=== PATIENT | male | born 1970 | race Caucasian/White ===

== ENCOUNTER → 2019-01-31 | Outpatient (CLI) | payer OTHER ==
[2019-01-31 11:49] LABS: HCT 45.4 % (39.0-53.0); HGB 15.6 gm/dL (13.0-17.5); MCH 30.7 pg (25.0-35.0); MCHC 34.3 g/dL (31.0-37.0); MCV 89.3 fL (80.0-100.0); Mean Platelet Volume 6.7; Platelet Count 287 k/uL (150-450); RBC 5.09 m/uL (4.30-5.90); RDW 12.8 % (11.5-15.5); WBC 5.5 k/uL (3.8-10.6)
== END | disposition home or self-care (01) ==
LOC: LABWHC1 10:08
PROVIDERS: ATTEND Surgery
DX: Z01.812 Encounter for preprocedural laboratory examination (principal)
CPT/HCPCS: 36415; 85027

== ENCOUNTER 2019-02-03 09:53 | Day surgery (SDC) | payer OTHER ==
[2019-01-27 16:08] VITALS: BMI 29.5
[~2019-02-03 09:53] MED LIST: CLINDAMYCIN 900 MG in DEXTROSE 5% IN WATER 50 ML IVPB ONE; DEXAMETHASONE SOD PHOSPHATE 10 MG/ML 1 ML VIAL IV ONE; HEPARIN SODIUM,PORCINE 5,000 UNIT/ML 1 ML VIAL SQ ONE; HYDROmorphone 0.5 MG/0.5 ML SYRINGE IVP PRN; LACTATED RINGERS 1,000 ML IV SCH; LEVOFLOXACIN 500MG-D5W PMX 500 MG in DEXTROSE/WATER 1 100ML.BAG IVPB ONE; MIDAZOLAM 2 MG/2 ML VIAL IV PRN; ONDANSETRON 4 MG/2 ML VIAL IVP ONE; SCOPOLAMINE 1.5MG/72HR PATCH TRANSDERM ONE
[2019-02-03] MEDS ORDERED: LIDOCAINE 1% 20 ML VIAL (10MG/ML) FOR IV START INTRADERMA ONE ×2 (10:20)
--- NOTE | 2019-02-03 10:24 | P.GSHP ---
History of Present Illness H&P Date: 02/03/19 Chief Complaint: Right inguinal hernia This a 48-year-old male developed a right angle hernia. Patient rents today for laparoscopic robotic system repair. Past Medical History Past Medical History: GERD/Reflux, Hypertension, Osteoarthritis (OA) Additional Past Medical History / Comment(s): Restless Leg Syndrome. Hx ulcer few yrs ago. History of Any Multi-Drug Resistant Organisms: None Reported Past Surgical History: Cholecystectomy, Orthopedic Surgery Additional Past Surgical History / Comment(s): Bilateral knee surgery, wrist s urgery. Past Anesthesia/Blood Transfusion Reactions: No Reported Reaction Additional Past Anesthesia/Blood Transfusion Reaction / Comment(s): "Freaked out when woke up after gallbladder surgery, was trying to get out of bed." Past Psychological History: No Psychological Hx Reported Smoking Status: Former smoker Past Alcohol Use History: None Reported Additional Past Alcohol Use History / Comment(s): Quit smoking 10 yrs ago, smoked for 20 yrs, 1 PPD or less. Past Drug Use History: None Reported - Past Family History Mother Family Medical History: Hypertension Medications and Allergies Home Medications Medication Instructions Recorded Confirmed Type Amino Acids 700 mg PO DAILY 04/13/16 02/03/19 History Lisinopril [Zestril] 20 mg PO QAM 04/13/16 02/03/19 History Multivitamin [Men's Multi-Vitamin] 1 tab PO DAILY 04/13/16 02/03/19 History Ranitidine HCl [Zantac] 150 mg PO QAM 04/13/16 02/03/19 History Clear Muscle 1 dose PO DAILY 01/27/19 02/03/19 History Allergies Allergy/AdvReac Type Severity Reaction Status Date / Time Penicillins Allergy rash,swelli Verified 02/03/19 10:17 ng Surgical - Exam Vital Signs Temp Pulse Resp BP Pulse Ox 97.1 F L 74 18 118/71 100 02/03/19 10:18 02/03/19 10:18 02/03/19 10:18 02/03/19 10:18 02/03/19 10:18 - General well developed, well nourished, no distress - Eyes PERRL - ENT normal pinna - Neck no masses - Respiratory normal expansion - Cardiovascular Rhythm: regular - Abdomen Reducible right inguinal hernia Abdomen: soft, non tender Assessment and Plan Assessment: Right angle hernia. We'll perform laparoscopic robotic-assisted repair.
[2019-02-03] MEDS ORDERED: fentaNYL (PF) 50 MCG/ML 2 ML AMP IVP ONE (10:30)
[2019-02-03] MEDS ORDERED: SUCCINYLCHOLINE CHLORIDE 100 MG/5 ML SYR IV ONE (10:42)
[2019-02-03] MEDS ORDERED: diphenhydrAMINE 50 MG/ML 1 ML VIAL ONE (10:42)
[2019-02-03] MEDS ORDERED: LIDOCAINE 1% INJ 10MG/ML (20 ML MDV) ONE (10:42)
[2019-02-03] MEDS ORDERED: PROPOFOL 10 MG/ML 20 ML VIAL IV ONE (10:42)
[2019-02-03] MEDS ORDERED: fentaNYL (PF) 50 MCG/ML 2 ML AMP ONE (10:42)
[2019-02-03] MEDS ORDERED: KETOROLAC 30 MG/ML 1 ML VIAL ONE (10:42)
[2019-02-03] MEDS ORDERED: ROPIVACAINE 5 MG/ML 30 ML VIAL ONE (10:42)
[2019-02-03] MEDS ORDERED: MIDAZOLAM 2 MG/2 ML VIAL ONE (10:42)
[2019-02-03] MEDS ORDERED: NEOSTIGMINE 1 MG/ML 10 ML VIAL ONE (10:42)
[2019-02-03] MEDS ORDERED: GLYCOPYRROLATE 0.2 MG/ML 2 ML VIAL ONE (10:42)
[2019-02-03] MEDS ORDERED: HYDROmorphone (PF) 1 MG/ML ONE (10:42)
[2019-02-03] MEDS ORDERED: ROCURONIUM BROMIDE 10 MG/ML 10 ML VIAL IV ONE (10:42)
[2019-02-03] MEDS ORDERED: BUPIVACAIN-EPI 0.25%-1:200,000 30 ML VIAL SQ ONE (11:21)
--- NOTE | 2019-02-03 12:03 | P.OP ---
Date of Procedure: 02/03/19 Preoperative Diagnosis: Right inguinal hernia Postoperative Diagnosis: Bilateral inguinal hernia Bilateral cord lipoma Procedure(s) Performed: Laparoscopic robotic Repair of bilateral inguinal hernia Excision of bilateral cord lipoma Anesthesia: DAYNA Surgeon: Jose Luis Cho Estimated Blood Loss (ml): 5 Pathology: other (Bilateral cord lipoma) Condition: stable Disposition: PACU Description of Procedure: The patient's placed on the operating table in the supine position. The patient received general anesthesia. The patient's abdomen was prepped and draped in usual sterile fashion. The skin was anesthetized 1% local Xylocaine at the incision sites. Using an 11 blade a skin incision was made at the umbilicus. The fascia was grasped with a Blanca and then the peritoneal cavity was entered with the Veress needle. Position of the Veress needle was confirmed with a positive drop test. After adequate insufflation a 5 mm trocar was placed into the peritoneal cavity. The Laparoscope was placed the peritoneal cavity. And a robotic 8 mm trocar was placed in the right lateral position and then another 8 mm robotic trochars placed in the left lateral position. The original 5 mm trocar was exchanged for a 12 mm trocar. The patient was placed in reverse Trendelenburg and then the patient was docked to the robot. Next the peritoneum over top of the right inguinal hernia was incised and then using blunt and sharp dissection and electrocautery the hernia sac was dissected free from the floor of the inguinal canal. A cord lipoma was dissected free from the hernia and sent to pathology The hernia sac was completely reduced into the peritoneal cavity. And then using the Pro project reservoir engineer mesh the hernia was repaired. The peritoneum was then sutured with 20V lock suture. Next the peritoneum over top of the left inguinal hernia was incised and then using blunt and sharp dissection and electrocautery the hernia sac was dissected free from the floor of the inguinal canal. A cord lipoma was dissected free and sent to pathology The hernia sac was completely reduced into the peritoneal cavity. And then using the Pro project reservoir engineer mesh the hernia was repaired. The peritoneum was then sutured with 20V lock suture. The patient was then undocked the robot. The needle was withdrawn from the peritoneal cavity. The umbilical trocar site was closed with 0 Ethibond suture. The skin was closed interrupted 3-0 Monocryl suture. Dermabond dressing was applied. Patient was sent to recovery in stable condition.
[2019-02-03 12:11] VITALS: TEMP 97.8
[2019-02-03 12:12] VITALS: RESP 16
[2019-02-03] MEDS ORDERED: HYDROcodone/APAP 5-325MG 1 EACH TAB PO ONE (12:52)
--- NOTE | 2019-02-03 13:03 | P.ANPRN ---
Procedure Note - Anesthesia - Nerve Block Performed Right Transversus Abdominis Single Time Out Performed: Yes Date of Procedure: 02/03/19 Procedure Start Time: 10:28 Location of Patient Procedure: PreOp Indication: Acute Post-Operative Pain, Requested by Surgeon Specifically requested for management of pain by DrDarleen: Jose Luis Cho Sedation Type: Sedate with meaningful contact maintained Preparation: Sterile Prep Position: Supine Catheter: None Needle Types: Pajunk Needle Gauge: 21 Ultrasound used to observe medication spread: Yes Injectate: Other (see comment) (Ropivacaine 0.25%/lidocaine 0.5% 30 mL) Adjunct: Epinephrine (see comment for dilution ratio) (1:200,000) Blood Aspirated: No Pain Paresthesia on Injection Noted: No Resistance on Injection: Normal Image Stored and Saved: Yes
[2019-02-03 13:14] VITALS: BP 100/57; PULSE 75
== END 2019-02-03 14:04 | disposition home or self-care (01) ==
LOC: OR 09:53
PROVIDERS: ATTEND Surgery
DX: K40.20 Bilateral inguinal hernia, without obstruction or gangrene, not specified as recurrent (principal); D17.6 Benign lipomatous neoplasm of spermatic cord; I10 Essential (primary) hypertension; K21.9 Gastro-esophageal reflux disease without esophagitis; M19.90 Unspecified osteoarthritis, unspecified site; G25.81 Restless legs syndrome; Z87.891 Personal history of nicotine dependence; Z79.899 Other long term (current) drug therapy; Z88.0 Allergy status to penicillin; Z90.49 Acquired absence of other specified parts of digestive tract; Z98.890 Other specified postprocedural states; Z82.49 Family history of ischemic heart disease and other diseases of the circulatory system
CPT/HCPCS: 49650; 64486; 88302; C1781; J2250; J1200; J1644; J1100; J2710; J2405; J2001; J3010; J1885; J1170; J2795; J0330; J2704

== ENCOUNTER → 2020-06-30 | Outpatient (CLI) | payer OTHER ==
[2020-06-30 11:33] LABS: Basophils % (A) 1 %; Eosinophils # (A) 0.2 k/uL (0-0.7); Eosinophils % (A) 3 %; HCT 43.9 % (39.0-53.0); HGB 14.4 gm/dL (13.0-17.5); Lymphocytes # (A) 1.7 k/uL (1.0-4.8); Lymphocytes % (A) 27 %; MCH 29.2 pg (25.0-35.0); MCHC 32.9 g/dL (31.0-37.0); MCV 88.9 fL (80.0-100.0); Monocytes # (A) 0.3 k/uL (0-1.0); Monocytes % (A) 4 %; Neutrophils # (A) 3.9 k/uL (1.3-7.7); Neutrophils % (A) 62 %; Platelet Count 265 k/uL (150-450); RBC 4.94 m/uL (4.30-5.90); RDW 13.6 % (11.5-15.5); WBC 6.3 k/uL (3.8-10.6)
[2020-06-30 11:54] LABS: Potassium 4.3 mmol/L (3.5-5.1)
== END | disposition home or self-care (01) ==
LOC: LABPAT 10:49
PROVIDERS: ATTEND Orthopaedic Surgery
DX: Z01.818 Encounter for other preprocedural examination (principal); M70.21 Olecranon bursitis, right elbow
CPT/HCPCS: 36415; 80051; 85025

== ENCOUNTER 2020-07-01 10:46 | Inpatient (IN) | payer OTHER ==
--- NOTE | 2020-06-30 12:40 | HP ---
HISTORY AND PHYSICAL CHIEF COMPLAINT: Right elbow drainage and swelling. HISTORY OF PRESENT ILLNESS: The patient is a 49-year-old, right-hand dominant, self-employed contractor who presents with a 6-week history of a right elbow swelling/pain/and drainage. He has had previous aspiration in addition recently was on oral antibiotics with persistence of his symptoms. He denies fevers or chills. PAST MEDICAL HISTORY: Significant for anxiety, hypertension, and restless legs syndrome. PAST SURGICAL HISTORY: Negative. CURRENT MEDICATIONS: 1. Clindamycin. 2. Ambien. 3. Lisinopril. 4. Suboxone. FAMILY HISTORY: Negative. SOCIAL HISTORY: Significant for 1 pack per day tobacco use. REVIEW OF SYSTEMS: Sixteen-point review of systems is otherwise reviewed and is noncontributory. PHYSICAL EXAMINATION: On examination, the patient is approximately 6 feet 1 inch, 225 pounds of mesomorphic habitus. HEENT exam is nonfocal. Neck is supple. He is nontender about the right shoulder. On examination right elbow, active motion - 12 degrees full extension to 130 degrees of flexion. He does have significant posterior swelling over the olecranon with erythema and serous drainage. He is tender over this region as well. His distal neurovascular exam appears intact in the right upper extremity. Previous x-rays of the right elbow obtained in the office show a posterior soft tissue swelling. IMPRESSION: Right elbow olecranon bursitis-infected. RECOMMENDATIONS: I talked to the patient at length regarding his condition and treatment options. At this point, I recommend proceeding with incision and drainage with irrigation and debridement of his infected right olecranon bursitis. Potentially, we will keep the patient in the hospital until cultures grow out. We will also consider consulting Infectious Disease. Risks and benefits were discussed at length in layman's terms. MMODL / IJN: [id number] /
[2020-06-30 14:24] VITALS: BMI 30.3
[2020-07-01] MEDS ORDERED: LIDOCAINE 1% (10MG/ML) FOR IV START INTRADERMA ONE (11:29)
[2020-07-01] MEDS ORDERED: LACTATED RINGERS 1,000 ML IV ONE (11:29)
[2020-07-01] MEDS ORDERED: ONDANSETRON 4 MG/2 ML VIAL IVP ONE (11:32)
[2020-07-01] MEDS ORDERED: DEXAMETHASONE SOD PHOSPHATE 4 MG/ML 1 ML VIAL IVP ONE (11:33)
[2020-07-01] MEDS ORDERED: SCOPOLAMINE 1.5MG/72HR PATCH TRANSDERM ONE (11:33)
[2020-07-01] MEDS ORDERED: LIDOCAINE 1% INJ 10MG/ML (20 ML MDV) ONE (12:27)
[2020-07-01] MEDS ORDERED: MIDAZOLAM 2 MG/2 ML VIAL ONE (12:27)
[2020-07-01] MEDS ORDERED: fentaNYL (PF) 50 MCG/ML 2 ML AMP ONE (12:27)
[2020-07-01] MEDS ORDERED: ceFAZolin 3,000 MG in SODIUM CHLORIDE 0.9% IRRIGATIO 3,000 ML IRRIGATION ONE (12:27)
[2020-07-01] MEDS ORDERED: HYDROmorphone (PF) 1 MG/ML ONE (12:27)
[2020-07-01] MEDS ORDERED: PROPOFOL 10 MG/ML 20 ML VIAL IV ONE (12:27)
--- NOTE | 2020-07-01 13:12 | P.OP ---
Date of Procedure: 07/01/20 Preoperative Diagnosis: Right septic olecranon bursitis Postoperative Diagnosis: Same Procedure(s) Performed: Incision and drainage/irrigation and debridement right septic olecranon bursitis Anesthesia: DAYNA Surgeon: Lester Beltran Delimber Operator #1: Addi Albarran Estimated Blood Loss (ml): 10 Pathology: other (Cultures) Condition: stable Disposition: PACU Indications for Procedure: The patient's a 49-year-old male who presents with a several week history of persistent right elbow swelling/drainage/redness. He was tried on a course of oral antibiotics with persistence of his symptoms. A discussion of the risks and benefits of operative intervention was made with patient. He opted to proceed. Risks of this procedure to include persistence of infection and need for subsequent procedures was discussed. Informed consent was obtained. Operative Findings: As below Description of Procedure: The patient was brought to the operating room, and after induction of general anesthesia the right upper extremity was prepped and draped in normal fashion. The tourniquet was inflated to 250 mm marker. A 5 cm incision was then made centered over the olecranon process. Skin was incised sharply. Subcu changed tissues were divided sharply. A significant amount of serous fluid was expressed. Deep cultures were obtained. There was significant bursal thickening that was debrided sharply with a scalpel down to the level of the bone/olecranon. The wound edges were also sharply debrided with a scalpel. The wound was copiously irrigated with 3 L of saline. The skin was reapproximated loosely with 2-0 interrupted nylon sutures over a Pepito drain. A sterile dressing was applied. The tourniquet was deflated less than 30 minutes total tourniquet time. The patient was awoken from general anesthesia and transferred to recovery room in good condition. Blood loss estimated at 10 mL. No complications were incurred. Sponge and needle counts were correct at the end of the case.
[2020-07-01] MEDS ORDERED: ACETAMINOPHEN TAB 325 MG TAB PO PRN (13:15)
[2020-07-01] MEDS: HYDROmorphone 0.5 MG/0.5 ML SYRINGE IVP PRN ×6 (13:22→20:42)
[2020-07-01] MEDS ORDERED: CLINDAMYCIN 600 MG in DEXTROSE 5% IN WATER 50 ML IVPB SCH ×2 (20:00)
[2020-07-01] MEDS: ZOLPIDEM 5 MG TAB PO PRN (20:42)
[2020-07-01] MEDS ORDERED: VANCOMYCIN IV PER PHARMACY 1 EACH MISC MISCELLANE PRN (22:27)
--- NOTE | 2020-07-01 23:20 | CONS ---
CONSULTATION DATE OF SERVICE: 07/01/2020 REASON FOR CONSULTATION: Right elbow septic bursitis. HISTORY OF PRESENT ILLNESS: The patient is a 49-year-old male electively admitted to the hospital for right elbow septic olecranon bursitis. Apparently the patient started having symptoms more than a month ago. The patient said he was in [place] [facility] when he started having some irritation and pain to the right elbow area. Subsequently he noticed increasing swelling and redness and was evaluated multiple times in the outpatient setting. He has been treated with multiple courses of antibiotics, including Levaquin, doxycycline and clindamycin. This patient does have a history of PENICILLIN ALLERGY. The patient was evaluated by Dr. Beltran yesterday with a diagnosis of septic olecranon bursitis and has been admitted to hospital for bursectomy, which was completed this afternoon. The patient was started on clindamycin. Infectious Disease was consulted for management of antibiotic therapy. The patient has been complaining of pain to the elbow area, to be more of a dull aching to sharp intensity 7 to 8 out of 10, and no radiation. The patient did have some swelling and redness and minimal drainage; not foul-smelling, though. He did have a fever on presentation to the hospital. The patient has been afebrile. No blood work has been done. Started on clindamycin. REVIEW OF SYSTEMS: Positive points have been mentioned in HPI. Rest of systems are negative. PAST MEDICAL HISTORY: Anxiety, hypertension, restless leg syndrome. PAST SURGICAL HISTORY: No major surgery. SOCIAL HISTORY: Positive for smoking about a pack a day. Denies drinking or drug use. FAMILY HISTORY: No pertinent findings noticed. ALLERGIES: LEVAQUIN, DOXYCYCLINE, PENICILLIN, mostly with a rash. MEDICATIONS: The patient is currently on Tylenol, [place], clindamycin, Dilaudid and Ambien. PHYSICAL EXAMINATION: Blood pressure 127/74 with a pulse of 81, temperature 97.7. He is 94% on room air. General description is a middle-aged male lying in bed in no distress. No tachypnea or accessory muscle of respiration use. HEENT: Examination shows no pallor or scleral icterus. Oral mucous membrane is dry. No pharyngeal erythema or thrush. NECK: Trachea is central. No thyromegaly. LUNGS: Unlabored breathing. Clear to auscultation anteriorly. No wheeze or crackle. HEART: S1, S2. Regular rate and rhythm. No added sound. ABDOMEN: Soft. No tenderness. No guarding or rigidity. EXTREMITIES: No edema of the feet. SKIN EXAMINATION: No rash or mass palpable. Examination of the right elbow: It is currently dressed. No drainage on the dressing. NEUROLOGIC: The patient is awake, alert, oriented x3. Mood and affect normal. LABS: Wound cultures are currently pending. No other blood work has been done. DIAGNOSTIC IMPRESSION AND PLAN: 1. Patient with recurrent right elbow olecranon bursitis, failing outpatient oral antibiotic therapy with concern for possible MRSA. 2. Patient with MULTIPLE ANTIBIOTIC ALLERGIES. That will limit the number of antibiotics safe to use. PLAN: 1. Discontinue clindamycin. 2. Will obtain a CBC, BMP, sedimentation rate and CRP and a blood culture. 3. We will add vancomycin, Pharmacy to dose, target of 15. 4. Will follow his clinical condition and culture to further adjust medication if needed. Thank you for this consultation. Will follow this patient along with you. MMODL / IJN: [id number] /
[2020-07-02] MEDS ORDERED: VANCOMYCIN 1,750 MG in SODIUM CHLORIDE 0.9% 500 ML 500 ML IVPB ONE ×2
[2020-07-02] MEDS: HYDROmorphone 0.5 MG/0.5 ML SYRINGE IVP PRN ×3 (05:52→20:02)
[2020-07-02 06:26] LABS: Basophils % (A) 0 %; Eosinophils # (A) 0.1 k/uL (0-0.7); Eosinophils % (A) 1 %; HCT 45.8 % (39.0-53.0); HGB 15.1 gm/dL (13.0-17.5); Lymphocytes # (A) 1.8 k/uL (1.0-4.8); Lymphocytes % (A) 22 %; MCH 29.4 pg (25.0-35.0); MCV 88.9 fL (80.0-100.0); Mean Platelet Volume 7.1; Monocytes # (A) 0.4 k/uL (0-1.0); Monocytes % (A) 5 %; Neutrophils # (A) 5.6 k/uL (1.3-7.7); Neutrophils % (A) 70 %; Platelet Count 272 k/uL (150-450); RBC 5.15 m/uL (4.30-5.90); RDW 13.5 % (11.5-15.5)
[2020-07-02] MEDS ORDERED: VANCOMYCIN 1,500 MG in SODIUM CHLORIDE 0.9% 250 ML IVPB ONE (08:00)
[2020-07-02] MEDS: HYDROcodone/APAP 5-325MG 1 EACH TAB PO PRN (08:19)
[2020-07-02 09:56] LABS: African American GFR (CKD) 129.3 (60.0-200.0); Anion Gap 6.4 mmol/L (4.00-12.00); BUN/Creat Ratio 24.29 Ratio (12.00-20.00); C Reactive Protein 0.4 mg/dL (0.0-0.8); Calcium 9.1 mg/dL (8.7-10.3); Carbon Dioxide 25.6 mmol/L (21.6-31.8); Non-African American GFR(CKD) 111.6 (60.0-200.0)
--- NOTE | 2020-07-02 13:26 | P.PN ---
Subjective Progress Note Date: 07/02/20 Principal diagnosis: status post I+D right septic olecranon bursitis Patient notes moderate pain. Denies shortness of breath. Objective - Vital Signs Vital signs: Vital Signs Temp 98.2 F 07/02/20 07:51 Pulse 55 L 07/02/20 07:51 Resp 16 07/02/20 07:51 BP 129/80 07/02/20 07:51 Pulse Ox 96 07/02/20 07:51 Intake & Output 07/01/20 07/02/20 07/02/20 18:59 06:59 18:59 Intake Total 1251 Output Total 310 Balance 941 Weight 104.326 kg Intake: IV 1251 Output: Urine 300 Estimated Blood Loss 10 Other: Voiding Method Toilet # Voids 1 1 # Bowel Movements 0 - Exam right elbow incision- mild bloody drainage minimal erythema NVI right upper extremity - Constitutional General appearance: Present: no acute distress - Labs CBC & Chem 7: 07/02/20 05:52 07/02/20 05:52 Labs: Abnormal Lab Results - Last 24 Hours (Table) 07/02/20 Range/Units 05:52 Chloride 110 H (96-109) mmol/L BUN/Creatinine Ratio 24.29 H (12.00-20.00) Ratio Microbiology - Last 24 Hours (Table) 07/01/20 13:02 Gram Stain - Preliminary Elbow - Right Wound Culture - Preliminary 07/01/20 13:02 Anaerobic Culture - Preliminary Elbow - Right Assessment and Plan Assessment: Status post I+D right septic olecranon bursitis Plan: Continue Vancomycin per ID. moniter culture results. Pain control. Time with Patient: Less than 30
[2020-07-02 13:55] LABS: Erythrocyte Sedimentation Rate 3 mm/hr (0-15)
[2020-07-02] MEDS: VANCOMYCIN 1,750 MG in SODIUM CHLORIDE 0.9% 500 ML 500 ML IVPB SCH ×2 (16:34→22:52)
[2020-07-02] MEDS: ALPRAZolam 0.5 MG TAB PO PRN (17:08)
--- NOTE | 2020-07-02 19:49 | PN ---
PROGRESS NOTE DATE OF SERVICE: 07/02/2020 REASON FOR FOLLOWUP: Right elbow olecranon bursitis. INTERVAL HISTORY: Patient is currently afebrile. The patient is breathing comfortably. Pain to the right elbow is currently controlled. Denies having any chest pain. No shortness of breath or cough. No abdominal pain. No diarrhea. PHYSICAL EXAMINATION: Blood pressure 138/70 with a pulse of 80, temperature 98. General description is a middle-aged male lying in bed in no distress. Respiratory system: Unlabored breathing. Clear to auscultation anteriorly. Heart S1, S2. Regular rate and rhythm. ABDOMEN: Soft, no tenderness. Right hand is currently dressed. No obvious drainage on the dressing. LABS: Blood culture negative. Wound culture so far pending. DIAGNOSTIC IMPRESSION AND PLAN: Patient with right elbow olecranon bursitis, recurrent, failing outpatient oral antibiotic therapy in this patient status post I and D. Cultures currently pending. Continue vancomycin while waiting for the culture to finalize. Continue supportive care. MMODL / IJN: [id number] /
[2020-07-03] MEDS: VANCOMYCIN 1,750 MG in SODIUM CHLORIDE 0.9% 500 ML 500 ML IVPB SCH ×3 (07:18→23:23)
[2020-07-03] MEDS: HYDROmorphone 0.5 MG/0.5 ML SYRINGE IVP PRN ×3 (07:18→21:22)
[2020-07-03 09:02] LABS: African American GFR (CKD) 137.8 (60.0-200.0); Non-African American GFR(CKD) 118.9 (60.0-200.0)
--- NOTE | 2020-07-03 10:04 | P.PN ---
Subjective Progress Note Date: 07/03/20 Principal diagnosis: Status post incision and drainage right septic olecranon bursitis The patient notes improvement. He notes return of bowel and bladder function. Objective - Vital Signs Vital signs: Vital Signs Temp 98.2 F 07/03/20 07:29 Pulse 59 L 07/03/20 07:29 Resp 17 07/03/20 08:00 BP 138/81 07/03/20 07:29 Pulse Ox 95 07/03/20 07:29 Intake & Output 07/02/20 07/03/20 07/03/20 18:59 06:59 18:59 Other: Voiding Method Toilet # Voids 3 3 - Exam Right elbow incisionminimal drainage, no warmth or erythema Full right elbow range of motion Neurovascular exam intact right upper extremity - Constitutional General appearance: Present: no acute distress - Labs CBC & Chem 7: 07/02/20 05:52 07/03/20 05:26 Labs: Microbiology - Last 24 Hours (Table) 07/02/20 05:52 Blood Culture - Preliminary Blood No Growth after 24 hours 07/01/20 13:02 Gram Stain - Preliminary Elbow - Right Wound Culture - Preliminary Assessment and Plan Assessment: Status post incision and drainage right septic olecranon bursitis Plan: Continue antibiotics per infectious disease. Cultures show no growth at 24 hours. Potential transition to oral antibiotics and discharge soon. Time with Patient: Less than 30
--- NOTE | 2020-07-03 18:06 | PN ---
PROGRESS NOTE DATE OF SERVICE: 07/03/2020 REASON FOR FOLLOWUP: Right elbow septic olecranon bursitis. INTERVAL HISTORY: The patient is currently afebrile. He is breathing comfortably. Overall pain and discomfort to the right elbow is currently controlled. No chest pain, shortness of breath or cough. No abdominal pain. No diarrhea. PHYSICAL EXAMINATION: Blood pressure 140/78 with a pulse of 65, temperature 98. He is 98% on room air. General description: The patient is a middle-aged male lying in bed in no distress. Respiratory system: Unlabored breathing. Clear to auscultation anteriorly. Heart S1, S2. Regular rate and rhythm. Abdomen soft, no tenderness. Right elbow with minimal swelling and redness. No drainage. LABS: Creatinine 0.6. Cultures so far negative. DIAGNOSTIC IMPRESSION AND PLAN: Patient with right elbow olecranon bursitis status post bursectomy, failing outpatient medical therapy. Cultures have been negative so far for any resistant pathogen. Keep the patient on vancomycin. However if the culture negative, will be able to transition to oral Bactrim DS and close outpatient followup. MMODL / IJN: [id number] /
[2020-07-03] MEDS: ZOLPIDEM 5 MG TAB PO PRN (23:22)
[2020-07-04] MEDS: HYDROcodone/APAP 5-325MG 1 EACH TAB PO PRN (02:17)
[2020-07-04] MEDS: ALPRAZolam 0.5 MG TAB PO PRN ×2 (02:17→07:57)
[2020-07-04] MEDS ORDERED: VANCOMYCIN TROUGH DUE 1 EACH MISC MISCELLANE ONE (07:00)
[2020-07-04] MEDS: VANCOMYCIN 1,750 MG in SODIUM CHLORIDE 0.9% 500 ML 500 ML IVPB SCH (07:53)
[2020-07-04 08:01] VITALS: BP 113/73; PULSE 71; RESP 16; TEMP 97.8
[2020-07-04 09:08] LABS: African American GFR (CKD) 137.8 (60.0-200.0); Non-African American GFR(CKD) 118.9 (60.0-200.0)
--- NOTE | 2020-07-04 11:41 | P.PN ---
Subjective Progress Note Date: 07/04/20 Principal diagnosis: status post I&D right elbow septic olecranon bursitis Patient is evaluated at bedside today, he is resting comfortably. He is very anxious in getting out of the hospital today. He's having no acute pain in the right elbow. He denies any fevers or chills. He denies any headaches, lightheadedness, chest pain or shortness of breath. Objective - Vital Signs Vital signs: Vital Signs Temp 97.8 F 07/04/20 08:00 Pulse 71 07/04/20 08:00 Resp 16 07/04/20 08:00 BP 113/73 07/04/20 08:00 Pulse Ox 96 07/04/20 08:00 Intake & Output 07/03/20 07/04/20 07/04/20 18:59 06:59 18:59 Other: Voiding Method Toilet Toilet # Voids 3 2 - Exam right upper extremity: Stitches are in good position and condition, no drainage is appreciated. There is no areas of fluctuance appreciated. There is minimal erythema present. F lexion and extension at the elbow are intact, along with the hand and wrist. Sensory exam light touch is intact throughout the extremity. Radial and ulnar pulses are 2+ - Labs CBC & Chem 7: 07/02/20 05:52 07/04/20 06:18 Labs: Microbiology - Last 24 Hours (Table) 07/02/20 05:52 Blood Culture - Preliminary Blood No Growth after 48 hours 07/01/20 13:02 Anaerobic Culture - Preliminary Elbow - Right 07/01/20 13:02 Gram Stain - Final Elbow - Right Wound Culture - Final Assessment and Plan Assessment: Postoperative day #3 status post I&D right elbow olecranon bursitis Plan: Pain control, patient has oral pain medication at home along with [id number] Tylenol Wound care instructions were discussed with patient Activity level instructions are discussed the patient Cultures are negative at this point, awaiting infectious disease final recommendations for outpatient antibiotics. Hopeful discharge to home today Time with Patient: Less than 30
--- NOTE | 2020-07-04 14:24 | PN ---
PROGRESS NOTE DATE OF SERVICE: 07/04/2020 REASON FOR FOLLOWUP: Right elbow bursitis. INTERVAL HISTORY: Patient is currently afebrile. The patient is breathing comfortably. Denies having any chest pain. No shortness of breath. No cough. Pain to the right elbow is currently controlled. No diarrhea. PHYSICAL EXAMINATION: Blood pressure 113/73 with a pulse of 71. Temperature 97.8. He is 96% on room air. General description: The patient is a middle-aged male up in the chair in no distress. Respiratory system: Unlabored breathing. Clear to auscultation anteriorly. Heart S1, S2. Regular rate and rhythm. Abdomen soft, no tenderness. Right elbow is currently dressed up. No obvious drainage on the dressing. LABS: Creatinine 0.64. Vancomycin trough is 12.1. Culture so far negative. DIAGNOSTIC IMPRESSION AND PLAN: Patient with right elbow bursitis status post bursectomy. Cultures have been negative for resistant pathogen. Will give a short course of oral Bactrim DS. Prescription sent to the pharmacy and close outpatient followup. MMODL / IJN: [id number] /
--- NOTE | 2020-07-04 14:55 | P.DS ---
Providers Date of admission: 07/01/20 10:46 Expected date of discharge: 07/04/20 Attending physician: Lester Beltran Consults: 07/01/20 13:16 Consult Physician Routine Consulting Provider: Hiwot Reyes Consult Reason/Comments: antibiotic choice, left elbow olecranon bursitis Do you want consulting provider notified?: Yes Primary care physician: Stated None Hospital Course: Date of admission: 07/01/2020 Date of discharge: 07/04/2020 Admission diagnosis: Status post I&D right elbow septic olecranon bursitis Discharge diagnosis: Same Attending physician: Dr. Beltran Surgical procedures: Incision and drainage with irrigation and debridement right elbow septic olecranon bursitis Brief history: Patient is a 49-year-old male with a history of infected right elbow olecranon bursitis that was initially treated with oral antibiotics. At this point patient has failed conservative treatment measures and has opted to proceed with a elective incision and drainage with irrigation and debridement of the right elbow septic olecranon bursitis. Hospital course: Details of patient's surgery can be found in operative report. Patient tolerated the procedure well and was subsequently transported to orthopedic floor. Patient's orthopeidc and medical care was provided daily. Patient had daily laboratory tests performed for evaluation of overall blood counts. Patient had daily physical therapy to include strengthening range of motion as well as education with walker ambulation. Patient was noted to have a relatively uneventful postoperative course. Patient reported satisfactory pain control with oral pain medications by postoperative day 0. Patient showed satisfactory progress with physical therapy. Patient moved steadily through the program and had no difficulty meeting the goals by postoperative day 3. Given patient's otherwise satisfactory course and having met physical therapy goals, plan is to discharge patient home on postoperative day 3. Discharge condition/disposition: Patient will be discharged home in stable condition. Discharge medications: Instructions are given on resumption of patient's normal daily medications per primary care recommendation, in addition patient will be prescribed Bactrim DS Discharge instructions: 1. Wound care and infection precautions, [keep incision dry and covered while showering, no lotions, creams, moisturizers. No soaking, tubs, pools, hottubs. Do not scrub over the incision. 2. Ice and elevate the extremity often 3. Follow up with your primary care doctor 7-10 days after discharge. 4. Contact [facility] with any questions, . Procedures: Incision and drainage with irrigation and debridement right elbow septic olecranon bursitis Patient Condition at Discharge: Good Plan - Discharge Summary Discharge Rx Participant: Yes New Discharge Prescriptions: New Sulfamethox-Tmp 800-160Mg [Bactrim DS 800-160 mg] 1 tab PO Q12HR #20 tab No Action Ambien(Dose Unknown) 1 tab PO HS Ibuprofen 600 mg PO BID PRN PRN Reason: Pain Discharge Medication List Ambien(Dose Unknown) 1 tab PO HS 06/30/20 [History] Ibuprofen 600 mg PO BID PRN 06/30/20 [History] Sulfamethox-Tmp 800-160Mg [Bactrim DS 800-160 mg] 1 tab PO Q12HR #20 tab 07/04/20 [Rx] Follow up Appointment(s)/Referral(s): Addi Albarran PAC [PHYSIC[facility] [employer]] - 2 Weeks Patient Instructions/Handouts: *Surgery [facility] - Scopalamine Patch Instructions, Wound Infection (DC), Acute Wounds (DC) Activity/Diet/Wound Care/Special Instructions: Orthopedic discharge instructions: 1. Keep incision covered and dry. Keep incision covered while showering 2. Utilize basic bandage over the elbow 3. Avoid excessive use of the right upper extremity 4. Take antibiotics as prescribed 5. Plan for follow-up at [facility] in 2 weeks for recheck Discharge Disposition: HOME SELF-CARE
--- NOTE | 2020-07-06 13:46 | CDI ---
Documentation Clarification Form Date: 07/06/20 From: Celine Boggs Phone: If you have a question about this query, please contact Pari Suarez, [employer] Driver at [phone] between 8am and 5pm. Admit Date: 07/01/2020 10:46:00 AM Patient Name: Sebastián Green Visit Number: [id number] Discharge Date: 07/04/2020 03:21:00 PM ATTENTION: The Clinical Documentation Specialists (CDI) and [facility] Coding Staff appreciate your assistance in clarifying documentation. Please respond to the clarification below the line at the bottom and electronically sign. The CDI & [facility] Coding staff will review the response and follow-up if needed. Please note: Queries are made part of the Legal Health Record. If you have any questions, please contact the author of this message via ITS. Dr. Lester Beltran, Per your operative note, a debridement was performed on right elbow. History/Risk Factors: RLS, HTN Clinical Indicators: Skin was incised sharply. Subcu changed tissues were divided sharply. There was significant bursal thickening that was debrided sharply with a scalpel down to the level of the bone/olecranon. The wound edges were also sharply debrided with the scalpel. Treatment: Incision and drainage/irrigation and debridement right septic olecranon bursitis. In order to capture the severity of condition and code the appropriate procedure; could you please document the following: Excisional debridement (the removal of necrotic, devitalized tissue or slough by means of cutting away of tissue) Non-excisional debridement (the removal of necrotic, devitalized tissue or slough by means of flushing, brushing, or washing. (Irrigation) Other; please specify Unable to determine Excisional debridement was performed utilizing a scalpel removing hypertrophic bursal tissue down to the bone. RIMA
== END 2020-07-04 15:21 | disposition home or self-care (01) | DRG 502 ==
LOC: 2ORMAIN 10:46 → EDSTATUS 12:50 → 4SSUR 16:13
PROVIDERS: ADMIT Orthopaedic Surgery; ATTEND Orthopaedic Surgery
PROC: 0MB30ZZ Excision of Right Elbow Bursa and Ligament, Open Approach (ICD-10-PCS; principal; 2020-07-01 12:20)
DX: M71.121 Other infective bursitis, right elbow (principal); G25.81 Restless legs syndrome; I10 Essential (primary) hypertension; F41.9 Anxiety disorder, unspecified; F17.210 Nicotine dependence, cigarettes, uncomplicated; Z88.0 Allergy status to penicillin; Z88.1 Allergy status to other antibiotic agents
CPT/HCPCS: 80048; 80202; 82565; 85025; 85652; 86140; 87040; 87070; 87075; 87205

== ENCOUNTER 2020-07-12 18:31 | Emergency (ER) | payer OTHER ==
[2020-07-12 18:35] VITALS: BP 152/97; PULSE 113; RESP 20; TEMP 98.4
[2020-07-12] MEDS ORDERED: CLINDAMYCIN 600 MG in DEXTROSE 5% IN WATER 50 ML IVPB STA ×2 (19:29)
[2020-07-12] MEDS ORDERED: cefTRIAXone IN SWFI 1,000 MG/10 ML SYRINGE IVP STA (19:29)
--- NOTE | 2020-07-12 19:39 | ED ---
Extremity Problem HPI - General Chief complaint: Extremity Problem,Nontraumatic Stated complaint: post surgical infection Time Seen by Provider: 07/12/20 18:41 Source: patient, RN notes reviewed Mode of arrival: ambulatory Limitations: no limitations - History of Present Illness Initial comments: 49-year-old male presents emergency Department chief complaint drainage, wound opening of his right elbow. Patient had surgery last week by Dr. Saldana for infected olecranon bursitis. Patient states that his wound was left open in the middle states that it opened up even more. He states her some drainage. Patient denies any increasing pain no fevers or chills - Related Data Home Medications Medication Instructions Recorded Confirmed Ambien(Dose Unknown) 1 tab PO HS 06/30/20 06/30/20 Ibuprofen 600 mg PO BID PRN 06/30/20 06/30/20 Previous Rx's Medication Instructions Recorded Sulfamethox-Tmp 800-160Mg [Bactrim 1 tab PO Q12HR #20 tab 07/04/20 DS 800-160 mg] Allergies Allergy/AdvReac Type Severity Reaction Status Date / Time doxycycline Allergy Rash/Hives Verified 07/12/20 18:35 levofloxacin [From Levaquin] Allergy Rash/Hives Verified 07/12/20 18:35 Penicillins Allergy rash,swelli Verified 07/12/20 18:35 ng Review of Systems ROS Statement: Those systems with pertinent positive or pertinent negative responses have been documented in the HPI. ROS Other: All systems not noted in ROS Statement are negative. Past Medical History Past Medical History: Hypertension, Osteoarthritis (OA) Additional Past Medical History / Comment(s): Restless Leg Syndrome. Hx ulcer , migraines, hx hypertension- was on rx but not currently, thought he had seizure last summer- was not seen, bursitis rt elbow-constantly draining,. hx of back injury-occ uses a cane History of Any Multi-Drug Resistant Organisms: None Reported Past Surgical History: Cholecystectomy, Hernia Repair, Orthopedic Surgery Additional Past Surgical History / Comment(s): ORIF rt wrist/hardware later removed, arthroscopy ky knees Past Anesthesia/Blood Transfusion Reactions: Previous Problems w/ Anesthesia, Motion Sickness Additional Past Anesthesia/Blood Transfusion Reaction / Comment(s): "Freaked out when woke up after gallbladder surgery, was trying to get out of bed." Past Psychological History: Anxiety Smoking Status: Current every day smoker Past Alcohol Use History: None Reported Past Drug Use History: None Reported - Past Family History Mother Family Medical History: No Reported History General Exam Limitations: no limitations General appearance: alert, in no apparent distress Head exam: Present: atraumatic, normocephalic, normal inspection Eye exam: Present: normal appearance, PERRL, EOMI. Absent: scleral icterus, conjunctival injection, periorbital swelling ENT exam: Present: normal exam, mucous membranes moist Neck exam: Present: normal inspection. Absent: tenderness, meningismus, lymphadenopathy Respiratory exam: Present: normal lung sounds bilaterally. Absent: respiratory distress, wheezes, rales, rhonchi, stridor Cardiovascular Exam: Present: regular rate, normal rhythm, normal heart sounds. Absent: systolic murmur, diastolic murmur, rubs, gallop, clicks Extremities exam: Present: other (Right elbow patient's full range of motion neurovascular intact, there is sutures in place with an opening in the middle there is some purulent drainage noted no significant erythema) Course Vital Signs 07/12/20 18:33 Temperature 98.4 F Pulse Rate 113 H Respiratory 20 Rate Blood Pressure 152/97 O2 Sat by Pulse 99 Oximetry Medical Decision Making - Medical Decision Making I did contact Dr. Saldana who recommended the patient to be transferred to [facility] trauma orthopedics. I did explain a patient's labs were ordered along with x-ray patient refuses patient states that he does not want to be transferred and will leave AGAINST MEDICAL ADVICE. Patient understands the risk. Disposition Clinical Impression: Infected olecranon bursa, Wound dehiscence Disposition: Left Against Medical Advice Condition: Fair Is patient prescribed a controlled substance at d/c from ED?: No Referrals: Bianka Mckeon MD [Primary Care Provider] - 1-2 days Time of Disposition: 19:39
== END 2020-07-12 19:46 | disposition left against medical advice (07) ==
LOC: EC 18:31
DX: T81.30XA Disruption of wound, unspecified, initial encounter (principal); M71.121 Other infective bursitis, right elbow; F17.200 Nicotine dependence, unspecified, uncomplicated; Z53.29 Procedure and treatment not carried out because of patient's decision for other reasons; Z88.0 Allergy status to penicillin; Z88.1 Allergy status to other antibiotic agents; Y65.8 Other specified misadventures during surgical and medical care
CPT/HCPCS: 99283

== ENCOUNTER 2020-09-04 12:35 | Emergency (ER) | payer OTHER ==
[2020-09-04 12:48] VITALS: BP 160/104; PULSE 80; RESP 18; TEMP 98.1
[2020-09-04 13:15] LABS: Basophils % (A) 0 %; Eosinophils # (A) 0.2 k/uL (0-0.7); Eosinophils % (A) 4 %; HCT 41.6 % (39.0-53.0); HGB 14.8 gm/dL (13.0-17.5); Lymphocytes # (A) 1.8 k/uL (1.0-4.8); Lymphocytes % (A) 37 %; MCH 30.1 pg (25.0-35.0); MCHC 35.7 g/dL (31.0-37.0); MCV 84.3 fL (80.0-100.0); Mean Platelet Volume 6.8; Monocytes # (A) 0.2 k/uL (0-1.0); Monocytes % (A) 5 %; Neutrophils # (A) 2.6 k/uL (1.3-7.7); Neutrophils % (A) 53 %; Platelet Count 243 k/uL (150-450); RBC 4.94 m/uL (4.30-5.90); RDW 12.8 % (11.5-15.5); WBC 4.9 k/uL (3.8-10.6)
[2020-09-04 13:23] LABS: Appearance,Urine Clear (Clear); Bilirubin,Urine Negative (Negative); Blood,Urine Negative (Negative); Color,Urine Yellow; Glucose,Urine (UA) Negative (Negative); Ketones,Urine Negative (Negative); Leukocyte Esterase,Urine Negative (Negative); Nitrite,Urine Negative (Negative); Protein,Urine Negative (Negative); Specific Gravity,Urine 1.021 (1.001-1.035); Urobilinogen,Urine <2.0 mg/dL (<2.0)
[2020-09-04 13:24] LABS: Albumin 4.6 g/dL (3.5-5.0); Calcium 9.4 mg/dL (8.4-10.2); Potassium 4.2 mmol/L (3.5-5.1); Total Bilirubin 0.4 mg/dL (0.2-1.3); Total Protein 7.3 g/dL (6.3-8.2)
--- NOTE | 2020-09-04 13:25 | ED ---
General Adult HPI - General Chief complaint: Abdominal Pain Stated complaint: pain in back/side, dizzy, heart palp Time Seen by Provider: 09/04/20 13:08 Source: patient, family Mode of arrival: ambulatory Limitations: no limitations - History of Present Illness Initial comments: Patient is a pleasant 49-year-old male presenting to the emergency department complaining of left flank pain. Onset of symptoms was prior to arrival. Symptoms were sudden onset and severe and lasted around 20 minutes. Symptoms have essentially resolved at this time. Patient did have some associated nausea, and palpitations. Patient also had tingling around his mouth. No history of similar symptoms previously. No fever. No dysuria or hematuria. - Related Data Home Medications Medication Instructions Recorded Confirmed Ambien(Dose Unknown) 1 tab PO HS 06/30/20 06/30/20 Ibuprofen 600 mg PO BID PRN 06/30/20 06/30/20 Previous Rx's Medication Instructions Recorded Sulfamethox-Tmp 800-160Mg [Bactrim 1 tab PO Q12HR #20 tab 07/04/20 DS 800-160 mg] Clindamycin HCl 300 mg PO Q6HR #40 cap 07/12/20 Allergies Allergy/AdvReac Type Severity Reaction Status Date / Time doxycycline Allergy Rash/Hives Verified 09/04/20 12:49 levofloxacin [From Levaquin] Allergy Rash/Hives Verified 09/04/20 12:49 Penicillins Allergy rash,swelli Verified 09/04/20 12:49 ng Review of Systems ROS Statement: Those systems with pertinent positive or pertinent negative responses have been documented in the HPI. ROS Other: All systems not noted in ROS Statement are negative. Constitutional: Denies: fever Eyes: Denies: eye pain ENT: Denies: ear pain Respiratory: Denies: cough Cardiovascular: Denies: chest pain Endocrine: Denies: fatigue Gastrointestinal: Reports: as per HPI Genitourinary: Denies: dysuria Musculoskeletal: Denies: back pain Skin: Denies: rash Neurological: Denies: weakness Past Medical History Past Medical History: Hypertension, Osteoarthritis (OA) Additional Past Medical History / Comment(s): Restless Leg Syndrome. Hx ulcer , migraines, hx hypertension- was on rx but not currently, thought he had seizure last summer- was not seen, bursitis rt elbow-constantly draining,. hx of back injury-occ uses a cane History of Any Multi-Drug Resistant Organisms: None Reported Past Surgical History: Cholecystectomy, Hernia Repair, Orthopedic Surgery Additional Past Surgical History / Comment(s): ORIF rt wrist/hardware later removed, arthroscopy ky knees Past Anesthesia/Blood Transfusion Reactions: Previous Problems w/ Anesthesia, Motion Sickness Additional Past Anesthesia/Blood Transfusion Reaction / Comment(s): "Freaked out when woke up after gallbladder surgery, was trying to get out of bed." Past Psychological History: Anxiety Smoking Status: Current every day smoker Past Alcohol Use History: None Reported Past Drug Use History: None Reported - Past Family History Mother Family Medical History: No Reported History General Exam Limitations: no limitations General appearance: alert, in no apparent distress Head exam: Present: normocephalic Eye exam: Present: normal appearance Neck exam: Present: normal inspection Respiratory exam: Present: normal lung sounds bilaterally Cardiovascular Exam: Present: regular rate, normal rhythm Expanded Peripheral pulses: 2+: Posterior Tibialis (R), Posterior Tibialis (L), Dorsalis Pedis (R), Dorsalis Pedis (L) GI/Abdominal exam: Present: soft, normal bowel sounds. Absent: distended, tenderness, guarding, rebound, rigid, pulsatile mass Extremities exam: Present: normal inspection. Absent: pedal edema, calf tenderness Back exam: Present: normal inspection. Absent: CVA tenderness (L) Neurological exam: Present: alert Psychiatric exam: Present: normal affect, normal mood Skin exam: Present: normal color Course Vital Signs 09/04/20 12:42 Temperature 98.1 F Pulse Rate 80 Respiratory 18 Rate Blood Pressure 160/104 O2 Sat by Pulse 97 Oximetry Medical Decision Making - Medical Decision Making Patient states he is symptom-free and has stuff going on so he cannot stay. Patient is aware that he will need to leave AGAINST MEDICAL ADVICE. Patient does have symptoms consistent with renal colic or kidney stone and this is related to him as the most likely cause. Patient is advised to wait for blood work and imaging. Patient did refuse computed tomography scan. Patient is advised that if he leaves AGAINST MEDICAL ADVICE that he should do close follow- up with his primary care physician for further evaluation and to go over results from blood work that was previously drawn. - Lab Data Result diagrams: 09/04/20 12:56 Lab Results 09/04/20 Range/Units 12:56 WBC 4.9 (3.8-10.6) k/uL RBC 4.94 (4.30-5.90) m/uL Hgb 14.8 (13.0-17.5) gm/dL Hct 41.6 (39.0-53.0) % MCV 84.3 (80.0-100.0) fL MCH 30.1 (25.0-35.0) pg MCHC 35.7 (31.0-37.0) g/dL RDW 12.8 (11.5-15.5) % Plt Count 243 (150-450) k/uL MPV 6.8 Neutrophils % 53 % Lymphocytes % 37 % Monocytes % 5 % Eosinophils % 4 % Basophils % 0 % Neutrophils # 2.6 (1.3-7.7) k/uL Lymphocytes # 1.8 (1.0-4.8) k/uL Monocytes # 0.2 (0-1.0) k/uL Eosinophils # 0.2 (0-0.7) k/uL Basophils # 0.0 (0-0.2) k/uL Disposition Clinical Impression: Flank pain Disposition: Left Against Medical Advice Instructions (If sedation given, give patient instructions): Abdominal Pain (ED) Additional Instructions: Please do follow-up with your primary care physician in the next day or 2 for recheck. Have primary care physician review lab results from today. Return for fever, increased pain, urinary problems, worsening symptoms or other concerns. Is patient prescribed a controlled substance at d/c from ED?: No Referrals: Bianka Mckeon MD [Primary Care Provider] - 1-2 days Time of Disposition: 13:25
== END 2020-09-04 13:28 | disposition left against medical advice (07) ==
LOC: EC 12:35
DX: R10.9 Unspecified abdominal pain (principal); R00.2 Palpitations; R11.0 Nausea; R42 Dizziness and giddiness; R20.2 Paresthesia of skin; M54.9 Dorsalgia, unspecified; I10 Essential (primary) hypertension; F41.9 Anxiety disorder, unspecified; M19.90 Unspecified osteoarthritis, unspecified site; F17.200 Nicotine dependence, unspecified, uncomplicated
CPT/HCPCS: 36415; 80053; 81003; 82150; 83690; 85025; 99284

== ENCOUNTER 2021-05-09 14:32 | Inpatient (IN) | payer MEDICAID, OTHER ==
[2021-05-09] MEDS ORDERED: SODIUM CHLORIDE 0.9% 1,000 ML IV STA (15:15)
[2021-05-09 16:05] LABS: ALT 40 U/L (4-49); AST 26 U/L (17-59); Acetaminophen <10.0 ug/mL; African American GFR (CKD) >90 (>60 ml/min/1.73 sqM); Albumin 4.4 g/dL (3.5-5.0); Alcohol <10 mg/dL; Alkaline Phosphatase 78 U/L (38-126); Anion Gap 8 mmol/L; Blood Urea Nitrogen 11 mg/dL (9-20); Calcium 9.7 mg/dL (8.4-10.2); Carbon Dioxide 25 mmol/L (22-30); Chloride 104 mmol/L (98-107); Glucose 101 mg/dL (74-99); Non-African American GFR(CKD) >90 (>60 ml/min/1.73 sqM); Potassium 3.9 mmol/L (3.5-5.1); Salicylate <1.0 mg/dL; Sodium 137 mmol/L (137-145); Total Bilirubin 0.4 mg/dL (0.2-1.3); Total Protein 7.4 g/dL (6.3-8.2)
[2021-05-09 16:20] LABS: Partial Thromboplastin Time 22.2 sec (22.0-30.0); Prothrombin Time 10.3 sec (9.0-12.0)
[2021-05-09 16:25] LABS: Basophils % (A) 1 %; Eosinophils % (A) 1 %; HCT 42.6 % (39.0-53.0); HGB 15.3 gm/dL (13.0-17.5); Lymphocytes % (A) 17 %; MCH 29.3 pg (25.0-35.0); MCHC 35.9 g/dL (31.0-37.0); MCV 81.7 fL (80.0-100.0); Monocytes # (A) 0.3 k/uL (0-1.0); Monocytes % (A) 4 %; Neutrophils # (A) 4.6 k/uL (1.3-7.7); Neutrophils % (A) 77 %; Platelet Count 281 k/uL (150-450); RBC 5.22 m/uL (4.30-5.90); RDW 12.4 % (11.5-15.5)
--- NOTE | 2021-05-09 19:15 | ED ---
Overdose HPI - General Chief Complaint: Overdose Stated Complaint: Overdose Time Seen by Provider: 05/09/21 15:03 Source: patient, EMS Mode of arrival: EMS - History of Present Illness Initial Comments: 60-year-old male presents to the emergency department with a reported overdose from home. Patient states that early this morning he took 6 tablets of "jet- asleep nighttime sleep aid" and 2 tablets each of zaleplon and ropinirole. Later on in the afternoon the patient took a handful of each of these medications. He reports to me that he took the medication so that he could sleep. I asked him if he was attempting to go to sleep forever for which the patient stated yes. I told him that those medications could really hurts him for which he replied that was his goal. States he has been depressed. He did attempt to cut his wrist and sustained a very superficial self-inflicted wrist laceration. asked the patient who called EMS. He states that he doesn't know however there is report on the patient's petition that his made the call. Police state that he made suicidal comments to his . He denies to me any history of drug or alcohol abuse. - Related Data Home Medications Medication Instructions Recorded Confirmed No Known Home Medications 05/09/21 05/09/21 Allergies Allergy/AdvReac Type Severity Reaction Status Date / Time doxycycline Allergy Rash/Hives Verified 05/09/21 17:57 levofloxacin [From Levaquin] Allergy Rash/Hives Verified 05/09/21 17:57 Penicillins Allergy rash,swelli Verified 05/09/21 17:57 ng Review of Systems ROS Statement: Those systems with pertinent positive or pertinent negative responses have been documented in the HPI. ROS Other: All systems not noted in ROS Statement are negative. Past Medical History Past Medical History: Hypertension, Osteoarthritis (OA) Additional Past Medical History / Comment(s): Restless Leg Syndrome. Hx ulcer , migraines, hx hypertension- was on rx but not currently, thought he had seizure last summer- was not seen, bursitis rt elbow-constantly draining,. hx of back i njury-occ uses a cane History of Any Multi-Drug Resistant Organisms: None Reported Past Surgical History: Cholecystectomy, Hernia Repair, Orthopedic Surgery Additional Past Surgical History / Comment(s): ORIF rt wrist/hardware later removed, arthroscopy ky knees Past Anesthesia/Blood Transfusion Reactions: Previous Problems w/ Anesthesia, Motion Sickness Additional Past Anesthesia/Blood Transfusion Reaction / Comment(s): "Freaked out when woke up after gallbladder surgery, was trying to get out of bed." Past Psychological History: Anxiety Smoking Status: Current every day smoker Past Alcohol Use History: None Reported Past Drug Use History: None Reported - Past Family History Mother Family Medical History: No Reported History Course Vital Signs 05/09/21 05/09/21 05/09/21 14:36 18:29 22:49 Temperature 100.4 F H 98.9 F Pulse Rate 110 H 90 98 Respiratory 12 18 20 Rate Blood Pressure 134/84 151/92 141/87 O2 Sat by Pulse 94 L 98 99 Oximetry Medical Decision Making - Medical Decision Making Upon arrival patient was placed into room 13. EKG is obtained. IV is established and laboratory studies were conducted. We did consult poison control who informed us that the patient would be okay for EPS evaluation around 8 PM. Laboratory studies are reviewed. Patient does remain stable throughout his stay in the emergency department. He is evaluated by EPS once medically clear. I did fill out a certification of the patient and he is admitted to the floor for psychiatric care - Lab Data Result diagrams: 05/09/21 15:43 05/09/21 15:43 Lab Results 05/09/21 05/09/21 05/09/21 Range/Units 15:43 15:43 15:43 WBC 6.0 (3.8-10.6) k/uL RBC 5.22 (4.30-5.90) m/uL Hgb 15.3 (13.0-17.5) gm/dL Hct 42.6 (39.0-53.0) % MCV 81.7 (80.0-100.0) fL MCH 29.3 (25.0-35.0) pg MCHC 35.9 (31.0-37.0) g/dL RDW 12.4 (11.5-15.5) % Plt Count 281 (150-450) k/uL MPV 7.0 Neutrophils % 77 % Lymphocytes % 17 % Monocytes % 4 % Eosinophils % 1 % Basophils % 1 % Neutrophils # 4.6 (1.3-7.7) k/uL Lymphocytes # 1.0 (1.0-4.8) k/uL Monocytes # 0.3 (0-1.0) k/uL Eosinophils # 0.0 (0-0.7) k/uL Basophils # 0.0 (0-0.2) k/uL PT 10.3 (9.0-12.0) sec INR 1.0 (<1.2) APTT 22.2 (22.0-30.0) sec Sodium 137 (137-145) mmol/L Potassium 3.9 (3.5-5.1) mmol/L Chloride 104 (98-107) mmol/L Carbon Dioxide 25 (22-30) mmol/L Anion Gap 8 mmol/L BUN 11 (9-20) mg/dL Creatinine 0.78 (0.66-1.25) mg/dL Est GFR (CKD-EPI)AfAm >90 (>60 ml/min/1.73 sqM) Est GFR (CKD-EPI)NonAf >90 (>60 ml/min/1.73 sqM) Glucose 101 H (74-99) mg/dL Plasma Lactic Acid Marcos (0.7-2.0) mmol/L Calcium 9.7 (8.4-10.2) mg/dL Total Bilirubin 0.4 (0.2-1.3) mg/dL AST 26 (17-59) U/L ALT 40 (4-49) U/L Alkaline Phosphatase 78 (38-126) U/L Total Protein 7.4 (6.3-8.2) g/dL Albumin 4.4 (3.5-5.0) g/dL Urine Color Urine Appearance (Clear) Urine pH (5.0-8.0) Ur Specific Chester (1.001-1.035) Urine Protein (Negative) Urine Glucose (UA) (Negative) Urine Ketones (Negative) Urine Blood (Negative) Urine Nitrite (Negative) Urine Bilirubin (Negative) Urine Urobilinogen (<2.0) mg/dL Ur Leukocyte Esterase (Negative) Urine WBC (0-5) /hpf Amorphous Sediment (None) /hpf Urine Mucus (None) /hpf Salicylates <1.0 mg/dL Urine Opiates Screen (NotDetected) Ur Oxycodone Screen (NotDetected) Urine Methadone Screen (NotDetected) Ur Propoxyphene Screen (NotDetected) Acetaminophen <10.0 ug/mL Ur Barbiturates Screen (NotDetected) U Tricyclic Antidepress (NotDetected) Ur Phencyclidine Scrn (NotDetected) Ur Amphetamines Screen (NotDetected) U Methamphetamines Scrn (NotDetected) U Benzodiazepines Scrn (NotDetected) Urine Cocaine Screen (NotDetected) U Marijuana (THC) Screen (NotDetected) Serum Alcohol <10 mg/dL Coronavirus (PCR) (Not Detectd) 05/09/21 05/09/21 05/09/21 Range/Units 15:43 19:22 19:22 WBC (3.8-10.6) k/uL RBC (4.30-5.90) m/uL Hgb (13.0-17.5) gm/dL Hct (39.0-53.0) % MCV (80.0-100.0) fL MCH (25.0-35.0) pg MCHC (31.0-37.0) g/dL RDW (11.5-15.5) % Plt Count (150-450) k/uL MPV Neutrophils % % Lymphocytes % % Monocytes % % Eosinophils % % Basophils % % Neutrophils # (1.3-7.7) k/uL Lymphocytes # (1.0-4.8) k/uL Monocytes # (0-1.0) k/uL Eosinophils # (0-0.7) k/uL Basophils # (0-0.2) k/uL PT (9.0-12.0) sec INR (<1.2) APTT (22.0-30.0) sec Sodium (137-145) mmol/L Potassium (3.5-5.1) mmol/L Chloride (98-107) mmol/L Carbon Dioxide (22-30) mmol/L Anion Gap mmol/L BUN (9-20) mg/dL Creatinine (0.66-1.25) mg/dL Est GFR (CKD-EPI)AfAm (>60 ml/min/1.73 sqM) Est GFR (CKD-EPI)NonAf (>60 ml/min/1.73 sqM) Glucose (74-99) mg/dL Plasma Lactic Acid Marcos 1.7 (0.7-2.0) mmol/L Calcium (8.4-10.2) mg/dL Total Bilirubin (0.2-1.3) mg/dL AST (17-59) U/L ALT (4-49) U/L Alkaline Phosphatase (38-126) U/L Total Protein (6.3-8.2) g/dL Albumin (3.5-5.0) g/dL Urine Color Yellow Urine Appearance Cloudy (Clear) Urine pH 8.0 (5.0-8.0) Ur Specific Chester 1.018 (1.001-1.035) Urine Protein Trace H (Negative) Urine Glucose (UA) Negative (Negative) Urine Ketones Negative (Negative) Urine Blood Negative (Negative) Urine Nitrite Negative (Negative) Urine Bilirubin Negative (Negative) Urine Urobilinogen <2.0 (<2.0) mg/dL Ur Leukocyte Esterase Negative (Negative) Urine WBC 1 (0-5) /hpf Amorphous Sediment Rare H (None) /hpf Urine Mucus Rare H (None) /hpf Salicylates mg/dL Urine Opiates Screen Not Detected (NotDetected) Ur Oxycodone Screen Not Detected (NotDetected) Urine Methadone Screen Not Detected (NotDetected) Ur Propoxyphene Screen Not Detected (NotDetected) Acetaminophen ug/mL Ur Barbiturates Screen Not Detected (NotDetected) U Tricyclic Antidepress Not Detected (NotDetected) Ur Phencyclidine Scrn Not Detected (NotDetected) Ur Amphetamines Screen Not Detected (NotDetected) U Methamphetamines Scrn Not Detected (NotDetected) U Benzodiazepines Scrn Not Detected (NotDetected) Urine Cocaine Screen Not Detected (NotDetected) U Marijuana (THC) Screen Not Detected (NotDetected) Serum Alcohol mg/dL Coronavirus (PCR) (Not Detectd) 05/09/21 Range/Units 22:30 WBC (3.8-10.6) k/uL RBC (4.30-5.90) m/uL Hgb (13.0-17.5) gm/dL Hct (39.0-53.0) % MCV (80.0-100.0) fL MCH (25.0-35.0) pg MCHC (31.0-37.0) g/dL RDW (11.5-15.5) % Plt Count (150-450) k/uL MPV Neutrophils % % Lymphocytes % % Monocytes % % Eosinophils % % Basophils % % Neutrophils # (1.3-7.7) k/uL Lymphocytes # (1.0-4.8) k/uL Monocytes # (0-1.0) k/uL Eosinophils # (0-0.7) k/uL Basophils # (0-0.2) k/uL PT (9.0-12.0) sec INR (<1.2) APTT (22.0-30.0) sec Sodium (137-145) mmol/L Potassium (3.5-5.1) mmol/L Chloride (98-107) mmol/L Carbon Dioxide (22-30) mmol/L Anion Gap mmol/L BUN (9-20) mg/dL Creatinine (0.66-1.25) mg/dL Est GFR (CKD-EPI)AfAm (>60 ml/min/1.73 sqM) Est GFR (CKD-EPI)NonAf (>60 ml/min/1.73 sqM) Glucose (74-99) mg/dL Plasma Lactic Acid Marcos (0.7-2.0) mmol/L Calcium (8.4-10.2) mg/dL Total Bilirubin (0.2-1.3) mg/dL AST (17-59) U/L ALT (4-49) U/L Alkaline Phosphatase (38-126) U/L Total Protein (6.3-8.2) g/dL Albumin (3.5-5.0) g/dL Urine Color Urine Appearance (Clear) Urine pH (5.0-8.0) Ur Specific Chester (1.001-1.035) Urine Protein (Negative) Urine Glucose (UA) (Negative) Urine Ketones (Negative) Urine Blood (Negative) Urine Nitrite (Negative) Urine Bilirubin (Negative) Urine Urobilinogen (<2.0) mg/dL Ur Leukocyte Esterase (Negative) Urine WBC (0-5) /hpf Amorphous Sediment (None) /hpf Urine Mucus (None) /hpf Salicylates mg/dL Urine Opiates Screen (NotDetected) Ur Oxycodone Screen (NotDetected) Urine Methadone Screen (NotDetected) Ur Propoxyphene Screen (NotDetected) Acetaminophen ug/mL Ur Barbiturates Screen (NotDetected) U Tricyclic Antidepress (NotDetected) Ur Phencyclidine Scrn (NotDetected) Ur Amphetamines Screen (NotDetected) U Methamphetamines Scrn (NotDetected) U Benzodiazepines Scrn (NotDetected) Urine Cocaine Screen (NotDetected) U Marijuana (THC) Screen (NotDetected) Serum Alcohol mg/dL Coronavirus (PCR) Not Detected (Not Detectd) - EKG Data EKG Comments: EKG demonstrates a sinus tachycardia with a ventricular rate of 110. OR in terval 170. QRS 90. QTC of 470. Disposition Disposition: ADMITTED IP TO THIS HOSP
[2021-05-09 19:48] LABS: Amorphous Sediment,Urine Rare /hpf; Appearance,Urine Cloudy (Clear); Bilirubin,Urine Negative (Negative); Blood,Urine Negative (Negative); Color,Urine Yellow; Glucose,Urine (UA) Negative (Negative); Ketones,Urine Negative (Negative); Leukocyte Esterase,Urine Negative (Negative); Mucus,Urine Rare /hpf; Nitrite,Urine Negative (Negative); Protein,Urine Trace (Negative); Specific Gravity,Urine 1.018 (1.001-1.035); Urobilinogen,Urine <2.0 mg/dL (<2.0); WBC,Urine 1 /hpf (0-5)
[2021-05-09 20:12] LABS: Amphetamine Screen,Urine Not Detected (NotDetected); Barbiturate Screen,Urine Not Detected (NotDetected); Benzodiazepines Screen,Urine Not Detected (NotDetected); Cocaine Screen,Urine Not Detected (NotDetected); Methadone Screen, Urine Not Detected (NotDetected); Opiate Screen,Urine Not Detected (NotDetected); Oxycodone Screen, Urine Not Detected (NotDetected); Phencyclidine Screen,Urine Not Detected (NotDetected); Tricyclic Antidepressant,Urine Not Detected (NotDetected); Urn Cannabinoid Scrn Not Detected (NotDetected)
[2021-05-09] MEDS ORDERED: LORazepam 1 MG TAB PO STA (22:11)
[2021-05-09] MEDS ORDERED: cloNIDine HCL 0.1 MG TAB PO STA (22:13)
[2021-05-09] MEDS ORDERED: LORazepam 2 MG/ML INJ IV STA (22:37)
[2021-05-09] MEDS ORDERED: NICOTINE 21MG/24HR PATCH TRANSDERM STA (23:25)
[2021-05-10] MEDS ORDERED: MAGNESIUM HYDROXIDE 2,400 MG/10 ML CUP PO PRN (00:56)
[2021-05-10] MEDS ORDERED: MAG HYDROX/AL HYDROX/SIMETH 30 ML CUP PO PRN (00:56)
[2021-05-10] MEDS ORDERED: QUEtiapine 50 MG TAB PO STA (01:02)
[2021-05-10] MEDS ORDERED: OLANZapine 10 MG VIAL IM PRN (01:03)
[2021-05-10] MEDS ORDERED: cloNIDine HCL 0.1 MG TAB PO STA (04:00)
[2021-05-10] MEDS: LOPERAMIDE 2 MG CAP PO PRN ×2 (04:08→15:53)
[2021-05-10] MEDS: ACETAMINOPHEN TAB 325 MG TAB PO PRN (04:08)
[2021-05-10] MEDS: DICYCLOMINE 10 MG CAP PO PRN ×2 (04:08→15:53)
[2021-05-10] MEDS: OLANZapine 5 MG TAB PO PRN ×2 (09:57→15:53)
[2021-05-10] MEDS: cloNIDine HCL 0.1 MG TAB PO PRN ×2 (09:57→20:13)
--- NOTE | 2021-05-10 10:34 | P.HP ---
Psychiatric H&P - . H&P Date: 05/10/21 History & Physical: Allergies Allergy/AdvReac Type Severity Reaction Status Date / Time doxycycline Allergy Rash/Hives Verified 05/10/21 02:28 levofloxacin i Verified 05/10/21 02:28 ng Vital Signs Temp 98.2 F 05/10/21 01:07 Pulse 119 H 05/10/21 08:00 Resp 20 05/10/21 08:00 BP 136/99 05/10/21 08:00 Pulse Ox 96 05/10/21 01:07 Intake & Output 05/09/21 05/10/21 05/10/21 18:59 06:59 18:59 Weight 104.326 kg 95.254 kg Laboratory Last Values WBC 6.0 k/uL (3.8-10.6) 05/09/21 15:43 RBC 5.22 m/uL (4.30-5.90) 05/09/21 15:43 Hgb 15.3 gm/dL (13.0-17.5) 05/09/21 15:43 Hct 42.6 % (39.0-53.0) 05/09/21 15:43 MCV 81.7 fL (80.0-100.0) 05/09/21 15:43 MCH 29.3 pg (25.0-35.0) 05/09/21 15:43 MCHC 35.9 g/dL (31.0-37.0) 05/09/21 15:43 RDW 12.4 % (11.5-15.5) 05/09/21 15:43 Plt Count 281 k/uL (150-450) 05/09/21 15:43 MPV 7.0 05/09/21 15:43 Neutrophils % 77 % 05/09/21 15:43 Lymphocytes % 17 % 05/09/21 15:43 Monocytes % 4 % 05/09/21 15:43 Eosinophils % 1 % 05/09/21 15:43 Basophils % 1 % 05/09/21 15:43 Neutrophils # 4.6 k/uL (1.3-7.7) 05/09/21 15:43 Lymphocytes # 1.0 k/uL (1.0-4.8) 05/09/21 15:43 Monocytes # 0.3 k/uL (0-1.0) 05/09/21 15:43 Eosinophils # 0.0 k/uL (0-0.7) 05/09/21 15:43 Basophils # 0.0 k/uL (0-0.2) 05/09/21 15:43 PT 10.3 sec (9.0-12.0) 05/09/21 15:43 INR 1.0 (<1.2) 05/09/21 15:43 APTT 22.2 sec (22.0-30.0) 05/09/21 15:43 Sodium 137 mmol/L (137-145) 05/09/21 15:43 Potassium 3.9 mmol/L (3.5-5.1) 05/09/21 15:43 Chloride 104 mmol/L (98-107) 05/09/21 15:43 Carbon Dioxide 25 mmol/L (22-30) 05/09/21 15:43 Anion Gap 8 mmol/L 05/09/21 15:43 BUN 11 mg/dL (9-20) 05/09/21 15:43 Creatinine 0.78 mg/dL (0.66-1.25) 05/09/21 15:43 Est GFR (CKD-EPI)AfAm >90 (>60 ml/min/1.73 sqM) 05/09/21 15:43 Est GFR (CKD-EPI)NonAf >90 (>60 ml/min/1.73 sqM) 05/09/21 15:43 Glucose 101 mg/dL (74-99) H 05/09/21 15:43 Plasma Lactic Acid Marcos 1.7 mmol/L (0.7-2.0) 05/09/21 15:43 Calcium 9.7 mg/dL (8.4-10.2) 05/09/21 15:43 Total Bilirubin 0.4 mg/dL (0.2-1.3) 05/09/21 15:43 AST 26 U/L (17-59) 05/09/21 15:43 ALT 40 U/L (4-49) 05/09/21 15:43 Alkaline Phosphatase 78 U/L (38-126) 05/09/21 15:43 Total Protein 7.4 g/dL (6.3-8.2) 05/09/21 15:43 Albumin 4.4 g/dL (3.5-5.0) 05/09/21 15:43 Urine Color Yellow 05/09/21 19:22 Urine Appearance Cloudy (Clear) 05/09/21 19:22 Urine pH 8.0 (5.0-8.0) 05/09/21 19:22 Ur Specific Mather 1.018 (1.001-1.035) 05/09/21 19:22 Urine Protein Trace (Negative) H 05/09/21 19:22 Urine Glucose (UA) Negative (Negative) 05/09/21 19:22 Urine Ketones Negative (Negative) 05/09/21 19:22 Urine Blood Negative (Negative) 05/09/21 19: Urine Nitrite Negative (Negative) 05/09/21 19: Urine Bilirubin Negative (Negative) 05/09/21 19: Urine Urobilinogen <2.0 mg/dL (<2.0) 05/09/21 19:22 Ur Leukocyte Esterase Negative (Negative) 05/09/21 19:22 Urine WBC 1 /hpf (0-5) 05/09/21 19:22 Amorphous Sediment Rare /hpf (None) H 05/09/21 19:22 Urine Mucus Rare /hpf (None) H 05/09/21 19:22 Salicylates <1.0 mg/dL 05/09/21 15:43 Urine Opiates Screen Not Detected (NotDetected) 05/09/21 19:22 Ur Oxycodone Screen Not Detected (NotDetected) 05/09/21 19:22 Urine Methadone Screen Not Detected (NotDetected) 05/09/21 19:22 Ur Propoxyphene Screen Not Detected (NotDetected) 05/09/21 19:22 Acetaminophen <10.0 ug/mL 05/09/21 15:43 Ur Barbiturates Screen Not Detected (NotDetected) 05/09/21 19:22 U Tricyclic Antidepress Not Detected (NotDetected) 05/09/21 19:22 Ur Phencyclidine Scrn Not Detected (NotDetected) 05/09/21 19:22 Ur Amphetamines Screen Not Detected (NotDetected) 05/09/21 19:22 U Methamphetamines Scrn Not Detected (NotDetected) 05/09/21 19:22 U Benzodiazepines Scrn Not Detected (NotDetected) 05/09/21 19:22 Urine Cocaine Screen Not Detected (NotDetected) 05/09/21 19:22 U Marijuana (THC) Screen Not Detected (NotDetected) 05/09/21 19:22 Serum Alcohol <10 mg/dL 05/09/21 15:43 Coronavirus (PCR) Not Detected (Not Detectd) 05/09/21 22:30 05/10/21 10:27 IDENTIFYING DATA: Patient is a 50 yo male who currently is lives with his in a house 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 HPI: Patient presented to the hospital yesterday and apparently was complaining of depression and was irritable agitated and was petitioned by the Airplane Tube Builder. According to the petition patient apparently "did cut his wrist and took several pills, trying to kill himself." Patient's "advised that he wanted to today, and saw him take several pills". Patient was admitted involuntarily to the mental health unit yesterday. He appeared to be disheveled in appearance and was directable and agreeable to speak to news writer today. Patient was fairly agitated with news writer and hostile. He demanded several times that he be discharged. He was guarded/evasive with news writer about the reason for coming into the hospital. He states that his called the projection welding machine operator on him. He claims that he was screaming at his because she "took my money away". He states that the projection welding machine operator were called and he was brought into the hospital. He claimed that he is having financial stressors and also stressors at work. He is denying any drug use and his UDS was negative. Blood alcohol level was negative. He claims that his mood is "pissed off" and claims that he is feeling terrible and wants to leave the hospital. He claims that his sleep has been poor appetite as been poor and admitting to mood swings and irritability.Patient denies any suicidal or homicidal ideations intent or plan. At this time patient denies any auditory or visual hallucinations. Patient denies any flight of ideas racing thoughts and increased in goal directed behavior. Patient admits to using no recreational drugs or cigarettes. PAST PSYCHIATRIC HISTORY: Patient states that he has no psychiatric history. He claims that he was previously on Suboxone for pain however has been off it for 2 weeks. [Patient denies any previous psychiatric hospitalizations.] [Patient denies any psychiatric outpatient follow-up.] [Patient denies any history of suicide attempts in the past.] Past Medical History: Hypertension, Osteoarthritis (OA) Additional Past Medical History / Comment(s): Restless Leg Syndrome. Hx ulcer , migraines, hx hypertension- was on rx but not currently, thought he had seizure last summer- was not seen, bursitis rt elbow-constantly draining,. hx of back injury-occ uses a cane ALLERGIES: as per EMR CHEMICAL DEPENDENCY HISTORY: as per HPI FAMILY PSYCHIATRIC/SUBSTANCE USE HISTORY: [denies] SOCIAL HISTORY: Patient was born and raised in [place]. He claims that he completed high school. He states that he has had several charges and has been to [facility] before for possession of illegal substances. He has 2 kids and lives in a house with his . He works construction. MENTAL STATUS EXAM: General Appearance: Patient appears to be tall, disheveled stated age is alert, irritable and hostile. Patient appears to have [poor] hygiene and grooming. Behavior: Patient is seated is hostile and agitated. Speech: Patient's speech is [fluent and nonpressured.] Loud at times Mood/Affect: Patient reports their mood is "terrible", affect is congruent Suicidality/Homicidality: Patient denies having any homicidal ideation intent or plan. [Denies any suicidal ideations intent or plan] Perceptions: Patient denies any visual hallucinations [and denies any auditory hallucinations] Though content/process: Mcdavid, guarded/evasive. Focused on discharge and minimizing his symptoms. Memory and concentration: AOX3, grossly intact for the purposes of this session. Can spell "WORLD" backwards Judgment and insight: [poor] STRENGTHS/WEAKNESSES: strength is that patient is [resilient]. Weakness is that patient [has poor judgment and is impulsive] INTELLECT: [average] IMPRESSIONS: Mood disorder unspecified, rule out secondary to substance use versus bipolar disorder History of opiate dependence, currently in withdrawal PLAN: -Patient is admitted under involuntary status to MHU for stabilization of psychiatric symptoms and safety. Patient has signed [medication consent] and is placed in patient's chart. [A second certification was completed and along with petition will be filed for court.] -Medications : Will start patient on Seroquel 25 mg daily +100 mg daily at bedtime for mood stabilization/insomnia. Pershing 300 mg twice a day for mood stabilization. -Clonidine when necessary for opiate withdrawal. Patient's will apparently be bringing in his Suboxone. -Zyprexa PRN for agitation/aggression [-Patient was counselled on substance abuse and desired to cut back on use] -Patient was informed of the risks, benefits and side effects of the medication and patient verbally consented to taking the medications. Patient signed med consent form and was placed in chart. -Internal Medicine consult to perform medical evaluation and physical. -NRT - not needed as patient does not smoke -SW on board for discharge planning. Encourage patient to participate in groups to work on coping skills. [Will await deferral and court date.]
[2021-05-10] MEDS: QUEtiapine 25 MG TAB PO SCH (11:18)
[2021-05-10] MEDS: LITHIUM CARBONATE 300 MG CAP PO SCH ×2 (11:18→20:13)
[2021-05-10] MEDS ORDERED: QUEtiapine 100 MG TAB PO SCH (21:00)
--- NOTE | 2021-05-10 22:12 | P.MDCNMH ---
History of Present Illness H&P Date: 05/10/21 Chief Complaint: Overdose Patient is a 50-year-old male with a known history of hypertension, osteoarthritis, anxiety/depression and currently everyday smoker and also restless leg syndrome and other multiple medical problems presents to ER due to overdose. Patient states that he felt very depressed and was having suicidal ideation recently. Yesterday morning he took 6 tablets of Hayder to sleep nighttime sleep aid and 2 tablets each of Zalelon and ropinirole. Letter labs none he took a handful of each of his medications. Patient states that he is very depressed and also did attempt to cut his wrist and sustained a very superficial self-inflicted wrist laceration. Evidently patient's called EMS and patient was petition. Patient denied any complaints of chest pain or shortness breath. Complains of nausea and episodes of diarrhea. No complaints of headache or dizziness or lightheadedness. No fever no chills. EKG showed sinus tachycardia Laboratory showed WBC 6.0 hemoglobin 15.3 and platelets 281 Sodium 137 potassium 3.9 BUN 11 and creatinine 0.78 and blood sugar is 101 Urine negative for infection UDS is negative. Coronavirus PCR not detected. Review of Systems Constitutional: Patient denies any fever or chills . No generalized weakness or weight loss. Abdomen: Patient denied nausea vomiting and diarrhea and abdominal pain. Cardiovascular: Patient denies any chest pain or short of breath no palpitations. Respiratory: patient denied any cough or sputum production. No shortness of breath Neurologic: Patient denied any numbness or tingling headache. Musculoskeletal: Patient denies any complaints of joint swelling or deformity. Skin: Negative Psychiatric: depressed Endocrine: No heat or cold intolerance. No recent weight gain. Genitourinary: No dysuria or hematuria. All other 14 point ROS negative except the above Past Medical History Past Medical History: Hypertension, Osteoarthritis (OA) Additional Past Medical History / Comment(s): Restless Leg Syndrome. Hx ulcer , migraines, hx hypertension- was on rx but not currently, thought he had seizure last summer- was not seen, bursitis rt elbow-constantly draining,. hx of back injury-occ uses a cane History of Any Multi-Drug Resistant Organisms: None Reported Past Surgical History: Cholecystectomy, Hernia Repair, Orthopedic Surgery Additional Past Surgical History / Comment(s): ORIF rt wrist/hardware later removed, arthroscopy ky knees Past Anesthesia/Blood Transfusion Reactions: Previous Problems w/ Anesthesia, Motion Sickness Additional Past Anesthesia/Blood Transfusion Reaction / Comment(s): "Freaked out when woke up after gallbladder surgery, was trying to get out of bed." Past Psychological History: Anxiety Smoking Status: Current every day smoker Past Alcohol Use History: None Reported Additional Past Alcohol Use History / Comment(s): Quit smoking 10 yrs ago, started smoking again 5 months ago, started as teen, smoking 1 PPD Past Drug Use History: None Reported - Past Family History Mother Family Medical History: No Reported History Medications and Allergies Home Medications Medication Instructions Recorded Confirmed Type No Known Home Medications 05/09/21 05/10/21 History Allergies Allergy/AdvReac Type Severity Reaction Status Date / Time doxycycline Allergy Rash/Hives Verified 05/10/21 02:28 levofloxacin [From Levaquin] Allergy Rash/Hives Verified 05/10/21 02:28 Penicillins Allergy rash,swelli Verified 05/10/21 02:28 ng Physical Exam Vitals: Vital Signs Temp Pulse Pulse Resp BP BP Pulse Ox 05/10/21 08:00 119 H 20 136/99 05/10/21 01:07 98.2 F 111 H 20 115/108 96 05/09/21 22:49 98 20 141/87 99 05/09/21 18:29 98.9 F 90 18 151/92 98 Intake and Output 05/10/21 05/10/21 05/10/21 06:59 14:59 22:59 Other: Weight 95.254 kg PHYSICAL EXAMINATION: Patient is lying in the bed comfortably, no acute distress, awake alert and oriented.. HEENT: Normocephalic. Neck is supple. Pupils reactive. Nostrils clear. Oral cavity is moist. Neck reveals no JVD, carotid bruits, or thyromegaly. CHEST EXAMINATION: Trachea is central. Symmetrical expansion. Lung simpson clear to auscultation and percussion. CARDIAC: Normal S1, S2 with no gallops. No murmurs ABDOMEN: Soft. Bowel sounds normal. No organomegaly. No abdominal bruits. Extremities: reveal no edema. No clubbing or cyanosis Neurologically awake, alert, oriented x3 with well-coordinated movements. No focal deficits noted Skin: No rash or skin lesions. Psychiatric: Cooperative. Nonsuicidal Musculoskeletal: No joint swelling or deformity. Normal range of motion. Cranial Nerve Examination - Cranial Nerves Cranial Nerve I- Olfactory: Intact Cranial Nerve II- Optic: Intact Cranial Nerve III- Oculomotor: Intact Cranial Nerve IV- Trochlear: Intact Cranial Nerve V- Trigeminal: Intact Cranial Nerve - Abducens: Intact Cranial Nerve VII- Facial: Intact Cranial Nerve VIII- Auditory: Intact Cranial Nerve IX- Glossopharyngeal: Intact Cranial Nerve X- Vagus: Intact Cranial Nerve XI- Accessory: Intact Cranial Nerve XII- Hypoglossal: Intact Results CBC & Chem 7: 05/09/21 15:43 05/09/21 15:43 Labs: Abnormal Lab Results - Last 24 Hours (Table) 05/09/21 Range/Units 19:22 Urine Protein Trace H (Negative) Amorphous Sediment Rare H (None) /hpf Urine Mucus Rare H (None) /hpf Assessment and Plan Assessment: Acute suicide attempt with drug overdose. Noncompliance with medications Hypertension patient is not taking medications at home currently. Nausea and diarrhea possible acute gastroenteritis. Improving. Restless leg syndrome Migraine headaches Anxiety/depression Currently everyday smoker DVT prophylaxis early ambulation Plan: Patient will be continued symptomatic management for nausea with Zofran and encourage oral intake. Continue the current psychiatric plan management. Reviewed CBC and BMP and UDS. Urinalysis showed no evidence of infection. We will continue to follow and further recommendations based on the clinical course. Monitor blood pressure closely.
[2021-05-11] MEDS: OLANZapine 5 MG TAB PO PRN ×3 (01:10→22:35)
[2021-05-11] MEDS ORDERED: LORazepam 1 MG TAB PO STA (04:14)
[2021-05-11] MEDS: LITHIUM CARBONATE 300 MG CAP PO SCH ×2 (09:10→20:16)
[2021-05-11] MEDS: QUEtiapine 25 MG TAB PO SCH (09:10)
[2021-05-11] MEDS ORDERED: ONDANSETRON 4 MG TAB PO PRN (10:48)
[2021-05-11] MEDS ORDERED: ONDANSETRON ODT 4 MG TAB PO PRN (10:54)
--- NOTE | 2021-05-11 11:32 | P.PN ---
Progress Note - Text Progress Note Date: 05/11/21 Interval History: Patient was seen lying in his bed this morning and was directable and agreeable to speak with development writer in the office. Patient continues to be fairly irritable with development writer and hostile at times and continues to be very focused on discharge. He is showing mild improvement in his irritability however continues to demonstrate very poor insight and denied needing any kind of mental health treatment. He asked several times where his public health informatician was and when he can leave the hospital. He explained that he has a "$40,000 job that I have to finish otherwise they'll joni me". He states that he has been vomiting his medication out and states that he is not able to tolerate water or any kind of food at this time. He was agreeable to try Zofran. He states that he did not sleep well last night was agreeable to have his Seroquel increased. He continues to demonstrate poor impulse control and low frustration tolerance. At this time patient denies any suicidal or homical ideations, intent or plan. Patient denies any auditory, visual hallucinations and denies any paranoia or delusions. Patient is fairly superficial. Mental Status Exam: General Appearance: Patient appears to be tall, disheveled stated age is alert, irritable at times Patient appears to have poor hygiene and grooming. Behavior: Patient is seated is hostile and agitated, improving midlly Speech: Patient's speech is fluent and nonpressured. Loud at times, improving midlly Mood/Affect: Patient reports their mood is "im ok", affect is congruent and irritable Suicidality/Homicidality: Patient denies having any homicidal ideation intent or plan. Denies any suicidal ideations intent or plan Perceptions: Patient denies any visual hallucinations and denies any auditory hallucinations Though content/process: [place], guarded/evasive. Focused on discharge and minimizing his symptoms. superficial Memory and concentration: AOX3, grossly intact for the purposes of this session. Judgment and insight: superficial/poor Assessment Mood disorder unspecified, rule out secondary to substance use versus bipolar disorder History of opiate dependence Plan: -Patient continues to meet criteria for inpatient psychiatric admission for symptom stabilization and safety. Patient has not signed adult voluntary form and was placed in patient's chart. -Medications: Increase Seroquel to 150 mg daily at bedtime for mood stabilization/insomnia. Continue lithium 300 mg twice a day for mood stabilization. This can be increased if needed/tolerated. Starting Zofran when necessary for nausea/vomiting. -When necessary Zyprexa prn for agitation/aggression. -NRT - not needed as patient does not smoke -SW on board for discharge planning. Encouraged the patient to participate in milieu. Currently awaiting deferral with commercial litigation attorney and court date.
[2021-05-11] MEDS ORDERED: SUBOXONE SUBLINGUAL ONE (13:15)
[2021-05-11] MEDS: NICOTINE 14MG/24HR PATCH TRANSDERM SCH (16:50)
[2021-05-11] MEDS: QUEtiapine 50 MG TAB PO SCH (20:16)
[2021-05-11] MEDS: cloNIDine HCL 0.1 MG TAB PO PRN (22:35)
[2021-05-12] MEDS: LITHIUM CARBONATE 300 MG CAP PO SCH ×2 (08:42→20:26)
[2021-05-12] MEDS: NICOTINE 14MG/24HR PATCH TRANSDERM SCH (08:42)
[2021-05-12] MEDS: LOPERAMIDE 2 MG CAP PO PRN (09:31)
[2021-05-12] MEDS: DICYCLOMINE 10 MG CAP PO PRN (12:18)
[2021-05-12] MEDS: cloNIDine HCL 0.1 MG TAB PO PRN ×2 (12:19→22:02)
--- NOTE | 2021-05-12 13:24 | P.PN ---
Progress Note - Text Progress Note Date: 05/12/21 Interval History: Patient was seen wandering the hallways and was agreeable to speak with automotive service writer in the office. Patient expressed that he is feeling "pretty terrible." It should be to this feeling due to his opiate withdrawal symptoms. He expresses that he is feeling "all the symptoms ." He states that he is experiencing hot and cold flashes, skin paresthesia, as well as nausea and diarrhea. In regards to mood, the patient states that it is hard to tell as he is feeling the effects of withdrawal. He is otherwise not reporting any suicidal or homicidal ideation, intention, and/or plan at this time. He is not reporting any auditory or visual hallucinations. He reports no paranoia or delusions. The patient reports that he was able to sleep well last night. He denies any issues regarding his appetite. He continues to be fixated on discharge and minimizes the attempts at self-harm. 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 Mental Status Exam: General Appearance: Patient appears to be tall, with fair hygiene and grooming. Behavior: Patient is seated without any agitated behavior. Psychomotor activity slightly elevated. Eye contact is appropriate. Speech: Patient's speech is fluent and nonpressured. Mood/Affect: Patient reports their mood is "pretty terrible", affect is congruent and irritable Suicidality/Homicidality: Patient denies having any homicidal ideation intent or plan. Denies any suicidal ideations intent or plan Perceptions: Patient denies any visual hallucinations and denies any auditory hallucinations Though content/process: [place], guarded/evasive. Focused on discharge and minimizing his symptoms. superficial Memory and concentration: AOX3, grossly intact for the purposes of this session. Judgment and insight: superficial/poor Vital Signs Temp 97.8 F 05/11/21 01:13 Pulse 123 H 05/12/21 09:25 Resp 16 05/12/21 09:25 BP 109/69 05/12/21 09:25 Pulse Ox 96 05/11/21 15:35 Laboratory Results - Last 24 Hours 05/11/21 05/11/21 11:00 11:[address] Glu mg/dL 108 Hemoglobin A1c 5.4 TSH 0.301 L Assessment Mood disorder unspecified, rule out secondary to substance use versus bipolar disorder History of opiate dependence Plan: -Patient continues to meet criteria for inpatient psychiatric admission for symptom stabilization and safety. Patient has not signed adult voluntary form and was placed in patient's chart. -Medications: Continue Seroquel to 150 mg daily at bedtime for mood stabilization/insomnia. Continue lithium 300 mg twice a day for mood stabilization. This can be increased if needed/tolerated. Start Catapres 0.1 mg by mouth twice a day when necessary for opiate withdrawal -When necessary Zyprexa prn for agitation/aggression. -NRT - not needed as patient does not smoke -SW on board for discharge planning. Encouraged the patient to participate in milieu. Currently awaiting deferral with truck shop mechanic and court date.
[2021-05-12 14:49] LABS: T4, Free (Free Thyroxine) 1.17 ng/dL (0.78-2.19)
[2021-05-12] MEDS: QUEtiapine 50 MG TAB PO SCH (20:26)
[2021-05-13] MEDS: LITHIUM CARBONATE 300 MG CAP PO SCH ×2 (08:01→20:10)
[2021-05-13] MEDS: QUEtiapine 25 MG TAB PO SCH ×2 (08:01→20:57)
[2021-05-13] MEDS: BENZTROPINE MESYLATE 1 MG TAB PO SCH ×2 (08:01→20:10)
[2021-05-13] MEDS: NICOTINE GUM (POLACRILEX) 2 MG GUM BUCCAL PRN ×2 (08:01→13:38)
[2021-05-13] MEDS: cloNIDine HCL 0.1 MG TAB PO PRN ×2 (09:51→20:57)
--- NOTE | 2021-05-13 10:38 | PN ---
PROGRESS NOTE DATE OF SERVICE: 05/13/2021. CHIEF COMPLAINT: The patient was depressed. He had made suicide gestures including cutting his wrist and taking several pills. He was withdrawing from Suboxone. INTERVAL HISTORY: Patient has been doing fair. He had an an up and down day yesterday. He attended groups. He has been cooperative with care. He tends to have a quiet manner, though does socialize with others. He said last night he actually slept well, which was the first night since he has been here that he got some sleep. Today he has been up. He reports quite a bit of anxiety and restlessness. He seems to have fairly good understanding of the expectations with withdrawal. He notes a long history of opioid use going back to early 20s. 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 He says at one point in the past he had used heroin. He stated that he has not been off any opioid medications pretty much throughout most of his adult life. He more recently had got on Suboxone in order to get away from opioid pain medications, he is well aware of what he anticipates as far as withdrawal. He says that his last use was about one week prior to admission, though he used 1 tablet on the unit. He said that for a while, he had been taking it more intermittently as an effort to taper off altogether. He acknowledges quite a bit a restlessness. He says that he has had restless legs going back to at least teenage years. He tolerates his psychotropic medications. MENTAL STATUS: Patient was restless. He gave good eye contact. He answered questions appropriately. His thoughts were clear and coherent. He was interactive. His affect was intense and anxious. His mood depressed. He was moderately distressed. There was no indication for thought disorder. Cognition was clear. ASSESSMENT: I will continue the current diagnosis and treatment plan. We will continue to engage the patient in individual and group therapeutic activities. I had an extensive discussion with the patient regarding withdrawal issues. He has fairly good awareness and expectations for what he is facing with withdrawal. We discussed that long-term treatment really hinges on his getting through the first 6-8 weeks of acute withdrawal before he is able to have an adequate evaluation for long-term issues. We discussed that research has shown that long-term use of opioid pain medications tends to worsen pain rather than ameliorate it. I discussed concerns relating to Requip, which potentially may also be a habit-forming medication. At this point I will increase Seroquel to 25 mg twice a day to help reduce some of his anxiety and restlessness related to withdrawal. He will continue 150 mg at bedtime. I will add Cogentin 1 mg twice a day. If he sees some improvement in terms of restlessness with Cogentin, we might be able to lower the dose. At this point, it is difficult to say how much of his restlessness may relate to EPS from Seroquel versus withdrawal from opioids. It is noteworthy that the patient is very much engaged in treatment and has a good understanding of issues that need to be addressed. We will focus on stabilization and discharge planning. JAVIER / UMUN: [id number] /
[2021-05-13 18:29] LABS: Amphetamine Screen,Urine Not Detected (NotDetected); Barbiturate Screen,Urine Not Detected (NotDetected); Benzodiazepines Screen,Urine Not Detected (NotDetected); Cocaine Screen,Urine Not Detected (NotDetected); Methadone Screen, Urine Not Detected (NotDetected); Opiate Screen,Urine Not Detected (NotDetected); Oxycodone Screen, Urine Not Detected (NotDetected); Phencyclidine Screen,Urine Not Detected (NotDetected); Tricyclic Antidepressant,Urine Not Detected (NotDetected); Urn Cannabinoid Scrn Not Detected (NotDetected)
[2021-05-13] MEDS: OLANZapine 5 MG TAB PO PRN (19:08)
[2021-05-13] MEDS: QUEtiapine 50 MG TAB PO SCH (20:10)
[2021-05-14] MEDS: LITHIUM CARBONATE 300 MG CAP PO SCH ×2 (08:16→20:37)
[2021-05-14] MEDS: BENZTROPINE MESYLATE 1 MG TAB PO SCH ×2 (08:16→20:37)
[2021-05-14] MEDS: QUEtiapine 25 MG TAB PO SCH ×2 (08:16→20:37)
--- NOTE | 2021-05-14 13:12 | PN ---
PROGRESS NOTE DATE OF SERVICE: 05/14/2021. CHIEF COMPLAINT: The patient was depressed he had mates suicide gestures including cutting his wrist and taking several pills. He was withdrawing from Suboxone. INTERVAL HISTORY: Patient has been doing fair. He had a quiet day yesterday. He comes out on the unit. He will wander about. He attends to present in a downcast manner. He will interact in a limited way to both staff and peers. He attended groups yesterday. He said he did not sleep very well last night. He said after he took the Seroquel, he was tired though could not fall asleep. Part of that was related to having a new roommate. Today, his only focus is on when he will be discharged. He seemed to suggest that his medications may be helping to a limited extent as far as withdrawal symptoms. He does describe a fair amount of anxiety. When I asked him about the option of increasing the Seroquel, he declined that saying it would just make him too sleepy and that even the 25 mg dose makes him feel tired. He did wonder about increase in the nighttime dose of Seroquel as well as possibly adding something in addition. His main focus was on when he would be able to be discharged. He was quite distressed about the petition process as I reviewed details with him about his status and what will be the next step in the process. Other than some possible sedation with his medications, he appears to tolerate them fairly well. MENTAL STATUS EXAM: Patient sat with some restlessness. He gave fair eye contact. He answered questions with brief responses. His thoughts were clear. He did not say much. His affect was intense. He had somewhat angry manner. His mood was dysphoric. He was moderately distressed. There was no indication of thought disorder. He made no indication of thoughts of harm. Cognition was clear. ASSESSMENT: I will continue the current diagnosis and general treatment plan. I will increase Seroquel to 25 mg twice a day, 200 mg at bedtime. I will add trazodone 50 mg at bedtime. The patient stated that he has trazodone at home, though he does not take it. He does feel that it might help with sleep. He will continue lithium carbonate 300 mg twice a day and Cogentin 1 mg twice a day. He has not been showing EPS symptoms or other issues of movement disorder. It is noteworthy that when I reviewed the petition process with the patient, he became quite angry and essentially terminated the interview saying his rights were being violated. It is noteworthy that he now is about 7 days into withdrawal from Suboxone. I discussed withdrawal issues with the patient. He seems to have a reasonably good understanding of expectations of withdrawal and the likelihood that some aspects of withdrawal may get worse for him over the next week. We will continue with a petition process. We will focus on stabilization and discharge planning. JAVIER / SHASHANK: [id number] /
[2021-05-14] MEDS: NICOTINE GUM (POLACRILEX) 2 MG GUM BUCCAL PRN ×2 (13:38→18:26)
[2021-05-14] MEDS: QUEtiapine 50 MG TAB PO SCH (20:37)
[2021-05-14] MEDS: ACETAMINOPHEN TAB 325 MG TAB PO PRN (20:37)
[2021-05-14] MEDS ORDERED: traZODone HCL 50 MG TAB PO SCH (21:00)
[2021-05-14] MEDS: cloNIDine HCL 0.1 MG TAB PO PRN (22:04)
[2021-05-14] MEDS ORDERED: diphenhydrAMINE 50 MG CAP PO STA (23:19)
[2021-05-15] MEDS: LITHIUM CARBONATE 300 MG CAP PO SCH (09:21)
[2021-05-15] MEDS: QUEtiapine 25 MG TAB PO SCH ×2 (09:21→20:16)
[2021-05-15] MEDS: BENZTROPINE MESYLATE 1 MG TAB PO SCH (09:21)
[2021-05-15] MEDS: NICOTINE GUM (POLACRILEX) 2 MG GUM BUCCAL PRN (10:25)
[2021-05-15] MEDS ORDERED: BENZTROPINE MESYLATE 1 MG TAB PO PRN (12:20)
--- NOTE | 2021-05-15 12:30 | P.PN ---
Progress Note - Text Progress Note Date: 05/15/21 Interval History: Patient was seen wandering the hallways this morning and was directable and ag reeable to speak with typewriter mechanic in the office. Patient continues to be somewhat irritable this morning however this has been improving mildly. He claims that he was visited by his over the weekend and states that he called her a "lying rat bitch" and said it "straight to her face". He continues to be upset that he is still n the hospital and continues to be focued on discharge. He claims that he is still not able to sleep at night and has only been sleeping 1-2 hours. He claims that he does have anxiety at nighttime and racing thoughts. He states that he is also dealing with restless leg symptoms and is agreeable to try an increase in Requip. He states that his mood is "fine" however has an incongruent affect. He is denying any changes in his appetite. He did state that over the weekend he did have some muscle spasms and was placed on Cogentin. He states that his told him he could go back to live with her when he is discharge,. He continues to demonstrate poor impulse control and low frustration tolerance which has been improving midlly. At this time patient denies any suicidal or homical ideations, intent or plan. Patient denies any auditory, visual hallucinations and denies any paranoia or delusions. Patient is fairly superficial. Mental Status Exam: General Appearance: Patient appears to be tall, disheveled stated age is alert, irritable at times Patient appears to have improving hygiene and grooming. Behavior: Patient is seated is hostile, improving midlly Speech: Patient's speech is fluent and nonpressured. Loud at times, improving midlly Mood/Affect: Patient reports their mood is "fine", affect is congruent and irritable, improving mildly Suicidality/Homicidality: Patient denies having any homicidal ideation intent or plan. Denies any suicidal ideations intent or plan Perceptions: Patient denies any visual hallucinations and denies any auditory hallucinations Though content/process: [place], guarded/evasive, improving mildly. Focused on discharge and minimizing his symptoms. superficial Memory and concentration: AOX3, grossly intact for the purposes of this session. Judgment and insight: superficial/poor, improving midlly Assessment Mood disorder unspecified, rule out secondary to substance use versus bipolar disorder History of opiate dependence Plan: -Patient continues to meet criteria for inpatient psychiatric admission for symptom stabilization and safety. Patient has not signed adult voluntary form and was placed in patient's chart. -Medications: Increase Seroquel to 200 mg daily at bedtime for mood stabilization/insomnia. increase lithium 450 mg twice a day for mood stabilization. Zofran when necessary for nausea/vomiting. increase Requip 0.5 qhs for restless leg symptoms. -check [place] level tomorrow morning. -When necessary Zyprexa prn for agitation/aggression. -NRT - not needed as patient does not smoke -SW on board for discharge planning. Encouraged the patient to participate in milieu. deferral set for tomorrow. likely discharge in 1-2 days.
[2021-05-15] MEDS: OLANZapine 5 MG TAB PO PRN (14:41)
[2021-05-15] MEDS: LITHIUM CARBONATE 150 MG CAP PO SCH (20:16)
[2021-05-15] MEDS: cloNIDine HCL 0.1 MG TAB PO PRN (20:18)
[2021-05-15] MEDS ORDERED: QUEtiapine 200 MG TAB PO SCH (21:00)
[2021-05-16 03:43] VITALS: BP 135/105; PULSE 112; RESP 16; TEMP 97.2
[2021-05-16] MEDS: QUEtiapine 25 MG TAB PO SCH (08:19)
[2021-05-16] MEDS: LITHIUM CARBONATE 150 MG CAP PO SCH (08:19)
[2021-05-16] MEDS: NICOTINE GUM (POLACRILEX) 2 MG GUM BUCCAL PRN (08:22)
[2021-05-16] MEDS: LOPERAMIDE 2 MG CAP PO PRN (08:22)
--- NOTE | 2021-05-16 13:45 | P.DS ---
Providers Date of admission: 05/10/21 00:51 Expected date of discharge: 05/16/21 Attending physician: Haile Potts MD Consults: 05/10/21 00:56 Consult Physician Routine Consulting Provider: Bianka Mcekon Consult Reason/Comments: H&P Do you want consulting provider notified?: Yes, Notify in am 05/10/21 08:34 Consult Physician Routine Consulting Provider: Scarlet Mayorga Consult Reason/Comments: H&P Do you want consulting provider notified?: Already Contacted Primary care physician: Mike Carlton - Discharge Diagnosis(es) (1) Unspecified mood [affective] disorder Current Visit: Yes Status: Acute Priority: High (2) History of opioid abuse Current Visit: Yes Status: Acute Priority: Low Hospital Course: Admission HPI: Admission note was completed by keno writer "Patient is a 50 yo male who currently is lives with his in a house 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 Patient presented to the hospital yesterday and apparently was complaining of depression and was irritable agitated and was petitioned by the Psychopaedic Nurse. According to the petition patient apparently "did cut his wrist and took several pills, trying to kill himself." Patient's "advised that he wanted to today, and saw him take several pills". Patient was admitted involuntarily to the mental health unit yesterday. He appeared to be disheveled in appearance and was directable and agreeable to speak to keno writer today. Patient was fairly agitated with keno writer and hostile. He demanded several times that he be discharged. He was guarded/evasive with keno writer about the reason for coming into the hospital. He states that his called the stucco laborer on him. He claims that he was screaming at his because she "took my money away". He states that the stucco laborer were called and he was brought into the hospital. He claimed that he is having financial stressors and also stressors at work. He is denying any drug use and his UDS was negative. Blood alcohol level was negative. He claims that his mood is "pissed off" and claims that he is feeling terrible and wants to leave the hospital. He claims that his sleep has been poor appetite as been poor and admitting to mood swings and irritability.Patient denies any suicidal or homicidal ideations intent or plan. At this time patient denies any auditory or visual hallucinations. Patient denies any flight of ideas racing thoughts and increased in goal directed behavior. Patient admits to using no recreational drugs or cigarettes." Hospital course: Upon admission to the unit patient was admitted involuntarily on a petition and certificate and a second certificate was completed and faxed with the courts. Patient ended up signing a deferral with the deputy county attorney and agreeing to treatment. Patient was initially fairly irritable with staff and aggressive however with treatment and time on the unit, patient eventually improved and got along well with other patients on the unit and followed unit protocol. Patient was compliant with the medications and denied any side effects throughout hospital course. Patient was started on Seroquel and titrate up the dose of 200 mg daily at bedtime + 25 mg daily for mood stabilization/insomnia, lithium 450 mg twice a day for mood stabilization, Requip 0.5 mg daily at bedtime for restless leg symptoms.. Patient spoke of his stressors and engaged in therapy both group and individual. Patient was also seen by medical team for history and physical exam. Patient had a lithium level drawn on the of discharge 05/16 which was 0.3. Throughout the course of the hospitalization patient gradually improved with regards to mood, anxiety, sleep and returned back to their baseline level of functioning. On the day of discharge patient denied any suicidal or homicidal ideations intent or plan denied any auditory or visual hallucinations. Patient endorsed wanting to live for his health and family. The patient denied any access to guns or weapons as the police had removed them from the house earlier. Patient denied any paranoia and did not endorse any delusions. Patient does have a significant history of substance abuse and was counseled on abstaining from all substances including alcohol and marijuana. Patient was also counseled on the medications and need for regular compliance and was encouraged to follow- up with their outpatient appointment for mental health and also for primary care. Prior to discharge a family meeting will be arranged by professor of social work to answer any questions and ensure safety upon discharge. Patient will either go back to his previous address with his or stay with his sister. Mental status exam: General Appearance: Patient appears to be tall, thin, stated age is alert, pleasant, and cooperative. Patient is in no acute distress and has improved hygiene and grooming Behavior: Patient is calmly seated without any agitated behavior. Speech: Patient's speech is fluent and nonpressured. Mood/Affect: Patient reports their mood is "good", affect is congruent Suicidality/Homicidality: Patient denies having any suicidal or homicidal ideation intent or plan. Perceptions: Patient denies any auditory or visual hallucinations. Though content/process: There is no evidence of any delusional thought content and thought process is linear and goal-directed. more future oriented Memory and concentration: AOX3, grossly intact for the purposes of this session. Can spell "WORLD" backwards correctly. Judgment and insight: chronically poor, however has improved with guarded prognosis Impression: Mood disorder unspecified history of opioid abuse Plan: -Continue with discharge today as patient has improved and stabilized psychiatrically and is not currently an imminent threat to himself and/or others. Patient will remain at chronically elevated risk for harm to self and/or others due to his impulsivity and poor judgment/insight. -Continue medications: Seroquel 200 mg daily at bedtime +25 mg daily for mood stabilization/insomnia, lithium 450 mg twice a day for mood stabilization, Requip 0.5 mg daily at bedtime for restless leg symptoms. -Patient was counseled on the need for medication compliance and appropriate follow-up at mental health and also primary care for medical issues. Patient verbalized understanding and agreed. -Social work to arrange for and conduct family meeting to ensure safety upon d ischarge and answer any questions/concerns. Social work also to arrange for patients follow up appointments for psychiatric care along with follow up with primary care provider. -Patient counseled on abstaining from recreational drugs and marijuana and alcohol. Was informed/educated on the adverse effects on their physical and mental health. Patient verbally agreed and understood. -Patient was instructed to return to the hospital or seek immediate medical care if their psychiatric or medical symptoms do worsen or reoccur. Allergies Allergy/AdvReac Type Severity Reaction Status Date / Time doxycycline Allergy Rash/Hives Verified 05/10/21 02:28 levofloxacin [From Levaquin] Allergy Rash/Hives Verified 05/10/21 02:28 Penicillins Allergy rash,swelli Verified 05/10/21 02:28 ng Laboratory Results WBC 6.0 k/uL (3.8-10.6) 05/09/21 15:43 RBC 5.22 m/uL (4.30-5.90) 05/09/21 15:43 Hgb 15.3 gm/dL (13.0-17.5) 05/09/21 15:43 Hct 42.6 % (39.0-53.0) 05/09/21 15:43 MCV 81.7 fL (80.0-100.0) 05/09/21 15:43 MCH 29.3 pg (25.0-35.0) 05/09/21 15:43 MCHC 35.9 g/dL (31.0-37.0) 05/09/21 15:43 RDW 12.4 % (11.5-15.5) 05/09/21 15:43 Plt Count 281 k/uL (150-450) 05/09/21 15:43 MPV 7.0 05/09/21 15:43 Neutrophils % 77 % 05/09/21 15:43 Lymphocytes % 17 % 05/09/21 15:43 Monocytes % 4 % 05/09/21 15:43 Eosinophils % 1 % 05/09/21 15:43 Basophils % 1 % 05/09/21 15:43 Neutrophils # 4.6 k/uL (1.3-7.7) 05/09/21 15:43 Lymphocytes # 1.0 k/uL (1.0-4.8) 05/09/21 15:43 Monocytes # 0.3 k/uL (0-1.0) 05/09/21 15:43 Eosinophils # 0.0 k/uL (0-0.7) 05/09/21 15:43 Basophils # 0.0 k/uL (0-0.2) 05/09/21 15:43 PT 10.3 sec (9.0-12.0) 05/09/21 15:43 INR 1.0 (<1.2) 05/09/21 15:43 APTT 22.2 sec (22.0-30.0) 05/09/21 15:43 Sodium 137 mmol/L (137-145) 05/09/21 15:43 Potassium 3.9 mmol/L (3.5-5.1) 05/09/21 15:43 Chloride 104 mmol/L (98-107) 05/09/21 15:43 Carbon Dioxide 25 mmol/L (22-30) 05/09/21 15:43 Anion Gap 8 mmol/L 05/09/21 15:43 BUN 11 mg/dL (9-20) 05/09/21 15:43 Creatinine 0.78 mg/dL (0.66-1.25) 05/09/21 15:43 Est GFR (CKD-EPI)AfAm >90 (>60 ml/min/1.73 sqM) 05/09/21 15:43 Est GFR (CKD-EPI)NonAf >90 (>60 ml/min/1.73 sqM) 05/09/21 15:43 Glucose 101 mg/dL (74-99) H 05/09/21 15:[address] Glu mg/dL 108 05/11/21 11:00 Hemoglobin A1c 5.4 % (4.0-6.0) 05/11/21 11:00 Plasma Lactic Acid Marcos 1.7 mmol/L (0.7-2.0) 05/09/21 15:43 Calcium 9.7 mg/dL (8.4-10.2) 05/09/21 15:43 Total Bilirubin 0.4 mg/dL (0.2-1.3) 05/09/21 15:43 AST 26 U/L (17-59) 05/09/21 15:43 ALT 40 U/L (4-49) 05/09/21 15:43 Alkaline Phosphatase 78 U/L (38-126) 05/09/21 15:43 Total Protein 7.4 g/dL (6.3-8.2) 05/09/21 15:43 Albumin 4.4 g/dL (3.5-5.0) 05/09/21 15:43 TSH 0.301 mIU/L (0.465-4.680) L 05/11/21 11:00 Free T4 1.17 ng/dL (0.78-2.19) 05/11/21 11:00 Free T3 pg/mL 3.7 pg/ml (2.8-5.3) 05/11/21 11:00 Urine Color Yellow 05/09/21 19:22 Urine Appearance Cloudy (Clear) 05/09/21 19: Urine pH 8.0 (5.0-8.0) 05/09/21 19:22 Ur Specific [place] 1.018 (1.001-1.035) 05/09/21 19:22 Urine Protein Trace (Negative) H 05/09/21 19:22 Urine Glucose (UA) Negative (Negative) 05/09/21 19:22 Urine Ketones Negative (Negative) 05/09/21 19:22 Urine Blood Negative (Negative) 05/09/21 19:22 Urine Nitrite Negative (Negative) 05/09/21 19: Urine Bilirubin Negative (Negative) 05/09/21 19:22 Urine Urobilinogen <2.0 mg/dL (<2.0) 05/09/21 19:22 Ur Leukocyte Esterase Negative (Negative) 05/09/21 19: Urine WBC 1 /hpf (0-5) 05/09/21 19: Amorphous Sediment Rare /hpf (None) H 05/09/21 19:22 Urine Mucus Rare /hpf (None) H 05/09/21 19:22 Salicylates <1.0 mg/dL 05/09/21 15:43 Urine Opiates Screen Not Detected (NotDetected) 05/13/21 18:06 Ur Oxycodone Screen Not Detected (NotDetected) 05/13/21 18:06 Urine Methadone Screen Not Detected (NotDetected) 05/13/21 18:06 Ur Propoxyphene Screen Not Detected (NotDetected) 05/13/21 18:06 Acetaminophen <10.0 ug/mL 05/09/21 15:43 Ur Barbiturates Screen Not Detected (NotDetected) 05/13/21 18:06 U Tricyclic Antidepress Not Detected (NotDetected) 05/13/21 18:06 Ur Phencyclidine Scrn Not Detected (NotDetected) 05/13/21 18:06 Ur Amphetamines Screen Not Detected (NotDetected) 05/13/21 18:06 U Methamphetamines Scrn Not Detected (NotDetected) 05/13/21 18:06 U Benzodiazepines Scrn Not Detected (NotDetected) 05/13/21 18:06 [place] 0.3 mmol/L 05/16/21 08:45 Urine Cocaine Screen Not Detected (NotDetected) 05/13/21 18:06 U Marijuana (THC) Screen Not Detected (NotDetected) 05/13/21 18:06 Serum Alcohol <10 mg/dL 05/09/21 15:43 Coronavirus (PCR) Not Detected (Not Detectd) 05/09/21 22:30 Vital Signs Temp 97.2 F L 05/16/21 03:42 Pulse 112 H 05/16/21 03:42 Resp 16 05/16/21 03:42 BP 135/105 05/16/21 03:42 Pulse Ox 97 05/15/21 02:16 Patient Condition at Discharge: Stable Plan - Discharge Summary New Discharge Prescriptions: New Acetaminophen Tab [Tylenol] 650 mg PO Q4HR PRN tab PRN Reason: Pain/Discomfort [place] Carbonate [[place] Carbonate ER] 450 mg PO BID 30 Days tab Nicotine Gum (Polacrilex) [Nicorette] 2 mg BUCCAL Q4HR PRN 30 Days PRN Reason: Nicotine Cravings rOPINIRole HCL [Requip] 0.5 mg PO HS 30 Days tab QUEtiapine [SEROquel] 25 mg PO BID 30 Days tab QUEtiapine [SEROquel] 200 mg PO HS 30 Days tab Discharge Medication List Acetaminophen Tab [Tylenol] 650 mg PO Q4HR PRN tab 05/16/21 [Rx] [place] Carbonate [[place] Carbonate ER] 450 mg PO BID 30 Days tab 05/16/21 [Rx] Nicotine Gum (Polacrilex) [Nicorette] 2 mg BUCCAL Q4HR PRN 30 Days 05/16/21 [Rx] QUEtiapine [SEROquel] 25 mg PO BID 30 Days tab 05/16/21 [Rx] QUEtiapine [SEROquel] 200 mg PO HS 30 Days tab 05/16/21 [Rx] rOPINIRole HCL [Requip] 0.5 mg PO HS 30 Days tab 05/16/21 [Rx] Follow up Appointment(s)/Referral(s): [facility] [Outside] - 1 Week Bianka Mckeon MD [Primary Care Provider] - 1-2 days Patient Instructions/Handouts: How to Stop Smoking (DC), Mood Disorders (DC), Opioid Use Disorder (DC) Activity/Diet/Wound Care/Special Instructions: Activity and diet as tolerated. Avoid the use of street drugs and alcohol. Take all medications as prescribed. When you are in need of refills on your medications please contact your medical provider and/or outpatient psychiatrist to have this done. Please go to scheduled outpatient appointment for aftercare treatment. If symptoms return or become worse, call the crisis line at and/or go to the nearest emergency room for evaluation Discharge Disposition: HOME SELF-CARE
== END 2021-05-16 14:48 | disposition home or self-care (01) | DRG 885 ==
LOC: EC 14:32 → 3MHU 05-10 00:51
PROVIDERS: ADMIT Psychiatry & Neurology Psychiatry; ATTEND Psychiatry & Neurology Psychiatry
DX: F39 Unspecified mood [affective] disorder (principal); F11.23 Opioid dependence with withdrawal; Z91.14 Patient's other noncompliance with medication regimen; G25.81 Restless legs syndrome; Z20.822 Contact with and (suspected) exposure to COVID-19; T42.72XA Poisoning by unspecified antiepileptic and sedative-hypnotic drugs, intentional self-harm, initial encounter; T42.8X2A Poisoning by antiparkinsonism drugs and other central muscle-tone depressants, intentional self-harm, initial encounter; X78.9XXA Intentional self-harm by unspecified sharp object, initial encounter; S61.519A Laceration without foreign body of unspecified wrist, initial encounter; F41.9 Anxiety disorder, unspecified; G47.00 Insomnia, unspecified; I10 Essential (primary) hypertension; G43.909 Migraine, unspecified, not intractable, without status migrainosus; M19.90 Unspecified osteoarthritis, unspecified site; F17.200 Nicotine dependence, unspecified, uncomplicated; Z71.6 Tobacco abuse counseling; Z87.11 Personal history of peptic ulcer disease; Z87.828 Personal history of other (healed) physical injury and trauma; Z90.49 Acquired absence of other specified parts of digestive tract; Z87.19 Personal history of other diseases of the digestive system; Z87.81 Personal history of (healed) traumatic fracture; Z98.890 Other specified postprocedural states; Z88.1 Allergy status to other antibiotic agents; Z88.0 Allergy status to penicillin
CPT/HCPCS: 36415; 80053; 80143; 80178; 80179; 80306; 80320; 81001; 82075; 83036; 83605; 84439; 84443; 84481; 85025; 85610; 85730; 87635; 93005; 99285

== ENCOUNTER 2022-03-25 09:28 | Emergency (ER) | payer OTHER ==
[2022-03-25 09:49] VITALS: BP 142/92; PULSE 66; TEMP 98.4
[2022-03-25 09:55] VITALS: RESP 16
[2022-03-25] MEDS ORDERED: SODIUM CHLORIDE 0.9% 1,000 ML IV STA (09:56)
[2022-03-25] MEDS ORDERED: ALBUTEROL HFA INHALER INHALATION STA (09:56)
--- NOTE | 2022-03-25 09:58 | ED ---
General Adult HPI - General Chief complaint: Shortness of Breath Stated complaint: covid+, SOB Time Seen by Provider: 03/25/22 09:51 Source: patient, family, RN notes reviewed Mode of arrival: ambulatory Limitations: no limitations - History of Present Illness Initial comments: Patient is a pleasant 51-year-old male presenting to the emergency department with concerns with worsening illness. Patient was diagnosed with COVID-19 infection a week ago. Patient had symptoms onset a couple days prior to that. Patient has had significant fatigue. Patient does have continued cough. Patient does feel a little bit short of breath. Patient has myalgias. Patient takes Tylenol as needed for fevers. Patient was prescribed vitamin D by his doctor however is concerned symptoms worsened after that. - Related Data Previous Rx's Medication Instructions Recorded Acetaminophen Tab [Tylenol] 650 mg PO Q4HR PRN tab 05/16/21 [place] Carbonate [[place] 450 mg PO BID 30 Days tab 05/16/21 Carbonate ER] Nicotine Gum (Polacrilex) 2 mg BUCCAL Q4HR PRN 30 Days 05/16/21 [Nicorette] QUEtiapine [SEROquel] 25 mg PO BID 30 Days tab 05/16/21 QUEtiapine [SEROquel] 200 mg PO HS 30 Days tab 05/16/21 rOPINIRole HCL [Requip] 0.5 mg PO HS 30 Days tab 05/16/21 Albuterol Nebulized [Ventolin 2.5 mg INHALATION QID PRN #75 ml 03/25/22 Nebulized] Allergies Allergy/AdvReac Type Severity Reaction Status Date / Time doxycycline Allergy Rash/Hives Verified 03/25/22 09:49 levofloxacin [From Levaquin] Allergy Rash/Hives Verified 03/25/22 09:49 Penicillins Allergy rash,swelli Verified 03/25/22 09:49 ng Review of Systems ROS Statement: Those systems with pertinent positive or pertinent negative responses have been documented in the HPI. ROS Other: All systems not noted in ROS Statement are negative. Constitutional: Reports: as per HPI, chills ENT: Denies: ear pain Respiratory: Reports: cough, dyspnea Cardiovascular: Denies: palpitations Endocrine: Reports: fatigue Gastrointestinal: Reports: other (Decreased appetite and oral intake). Denies: abdominal pain Genitourinary: Denies: dysuria Musculoskeletal: Denies: back pain Skin: Denies: rash Neurological: Denies: confusion Past Medical History Past Medical History: Hypertension, Osteoarthritis (OA) Additional Past Medical History / Comment(s): Restless Leg Syndrome. Hx ulcer , migraines, hx hypertension- was on rx but not currently, thought he had seizure last summer- was not seen, bursitis rt elbow-constantly draining,. hx of back injury-occ uses a cane History of Any Multi-Drug Resistant Organisms: None Reported Past Surgical History: Cholecystectomy, Hernia Repair, Orthopedic Surgery Additional Past Surgical History / Comment(s): ORIF rt wrist/hardware later removed, arthroscopy ky knees Past Anesthesia/Blood Transfusion Reactions: Previous Problems w/ Anesthesia, Motion Sickness Additional Past Anesthesia/Blood Transfusion Reaction / Comment(s): "Freaked out when woke up after gallbladder surgery, was trying to get out of bed." Past Psychological History: Anxiety Smoking Status: Current every day smoker Past Alcohol Use History: None Reported Past Drug Use History: None Reported - Past Family History Mother Family Medical History: No Reported History General Exam Limitations: no limitations General appearance: alert, in no apparent distress Head exam: Present: normocephalic Eye exam: Present: normal appearance Neck exam: Present: normal inspection Respiratory exam: Present: normal lung sounds bilaterally Cardiovascular Exam: Present: regular rate, normal rhythm GI/Abdominal exam: Present: soft. Absent: tenderness Extremities exam: Present: normal inspection. Absent: pedal edema, calf tenderness Neurological exam: Present: alert Psychiatric exam: Present: normal affect, normal mood Skin exam: Present: normal color Course Vital Signs 03/25/22 03/25/22 09:46 09:53 Temperature 98.4 F Pulse Rate 66 Respiratory 20 16 Rate Blood Pressure 142/92 O2 Sat by Pulse 97 Oximetry Medical Decision Making - Medical Decision Making Patient reevaluated and updated. Patient getting better and requests discharge - Lab Data Result diagrams: 03/25/22 10:17 03/25/22 10:17 Lab Results 03/25/22 03/25/22 03/25/22 Range/Units 10:17 10:17 10:17 WBC 3.9 (3.8-10.6) k/uL RBC 4.65 (4.30-5.90) m/uL Hgb 14.9 (13.0-17.5) gm/dL Hct 40.5 (39.0-53.0) % MCV 87.0 (80.0-100.0) fL MCH 32.0 (25.0-35.0) pg MCHC 36.8 (31.0-37.0) g/dL RDW 13.4 (11.5-15.5) % Plt Count 194 (150-450) k/uL MPV 8.0 Neutrophils % 54 % Lymphocytes % 36 % Monocytes % 5 % Eosinophils % 2 % Basophils % 0 % Neutrophils # 2.1 (1.3-7.7) k/uL Lymphocytes # 1.4 (1.0-4.8) k/uL Monocytes # 0.2 (0-1.0) k/uL Eosinophils # 0.1 (0-0.7) k/uL Basophils # 0.0 (0-0.2) k/uL PT 9.8 (9.0-12.0) sec INR 0.9 (<1.2) APTT 23.3 (22.0-30.0) sec D-Dimer 0.30 (<0.60) mg/L FEU Sodium 137 (137-145) mmol/L Potassium 4.1 (3.5-5.1) mmol/L Chloride 102 (98-107) mmol/L Carbon Dioxide 23 (22-30) mmol/L Anion Gap 12 mmol/L BUN 15 (9-20) mg/dL Creatinine 0.62 L (0.66-1.25) mg/dL Est GFR (CKD-EPI)AfAm >90 (>60 ml/min/1.73 sqM) Est GFR (CKD-EPI)NonAf >90 (>60 ml/min/1.73 sqM) Glucose 102 H (74-99) mg/dL Plasma Lactic Acid Marcos (0.7-2.0) mmol/L Calcium 9.2 (8.4-10.2) mg/dL Magnesium 1.9 (1.6-2.3) mg/dL Total Bilirubin 0.5 (0.2-1.3) mg/dL AST 54 (17-59) U/L ALT 159 H (4-49) U/L Alkaline Phosphatase 77 (38-126) U/L Lactate Dehydrogenase 557 (313-618) U/L C-Reactive Protein <0.5 (<1.0) mg/dL Total Protein 7.0 (6.3-8.2) g/dL Albumin 4.3 (3.5-5.0) g/dL 03/25/22 Range/Units 10:17 WBC (3.8-10.6) k/uL RBC (4.30-5.90) m/uL Hgb (13.0-17.5) gm/dL Hct (39.0-53.0) % MCV (80.0-100.0) fL MCH (25.0-35.0) pg MCHC (31.0-37.0) g/dL RDW (11.5-15.5) % Plt Count (150-450) k/uL MPV Neutrophils % % Lymphocytes % % Monocytes % % Eosinophils % % Basophils % % Neutrophils # (1.3-7.7) k/uL Lymphocytes # (1.0-4.8) k/uL Monocytes # (0-1.0) k/uL Eosinophils # (0-0.7) k/uL Basophils # (0-0.2) k/uL PT (9.0-12.0) sec INR (<1.2) APTT (22.0-30.0) sec D-Dimer (<0.60) mg/L FEU Sodium (137-145) mmol/L Potassium (3.5-5.1) mmol/L Chloride (98-107) mmol/L Carbon Dioxide (22-30) mmol/L Anion Gap mmol/L BUN (9-20) mg/dL Creatinine (0.66-1.25) mg/dL Est GFR (CKD-EPI)AfAm (>60 ml/min/1.73 sqM) Est GFR (CKD-EPI)NonAf (>60 ml/min/1.73 sqM) Glucose (74-99) mg/dL Plasma Lactic Acid [place] 1.6 (0.7-2.0) mmol/L Calcium (8.4-10.2) mg/dL Magnesium (1.6-2.3) mg/dL Total Bilirubin (0.2-1.3) mg/dL AST (17-59) U/L ALT (4-49) U/L Alkaline Phosphatase (38-126) U/L Lactate Dehydrogenase (313-618) U/L C-Reactive Protein (<1.0) mg/dL Total Protein (6.3-8.2) g/dL Albumin (3.5-5.0) g/dL - Radiology Data Radiology results: image reviewed (Chest x-ray shows no acute process) Disposition Clinical Impression: COVID-19 Disposition: HOME SELF-CARE Condition: Stable Instructions (If sedation given, give patient instructions): COVID-19 (Coronavirus Disease 2019) (ED) Additional Instructions: Please do follow-up with your primary care physician in the next couple days for recheck. [id number] vitamin C, vitamin D, and zinc. Tylenol as needed. Prescription for albuterol inhaler has been sent to pharmacy. Please return for difficulty breathing, not tolerating fluids, worsening symptoms or other concerns. Prescriptions: Albuterol Nebulized [Ventolin Nebulized] 2.5 mg INHALATION QID PRN #75 ml PRN Reason: Dyspnea Is patient prescribed a controlled substance at d/c from ED?: No Referrals: Jose Kuhn MD [STAFF PHYSICIAN] - 1-2 days Time of Disposition: 11:45
[2022-03-25 10:24] LABS: Basophils % (A) 0 %; Eosinophils # (A) 0.1 k/uL (0-0.7); Eosinophils % (A) 2 %; HCT 40.5 % (39.0-53.0); HGB 14.9 gm/dL (13.0-17.5); Lymphocytes # (A) 1.4 k/uL (1.0-4.8); Lymphocytes % (A) 36 %; MCHC 36.8 g/dL (31.0-37.0); Monocytes # (A) 0.2 k/uL (0-1.0); Monocytes % (A) 5 %; Neutrophils # (A) 2.1 k/uL (1.3-7.7); Neutrophils % (A) 54 %; Platelet Count 194 k/uL (150-450); RBC 4.65 m/uL (4.30-5.90); RDW 13.4 % (11.5-15.5); WBC 3.9 k/uL (3.8-10.6)
[2022-03-25 10:37] LABS: INR 0.9 (<1.2); Partial Thromboplastin Time 23.3 sec (22.0-30.0); Prothrombin Time 9.8 sec (9.0-12.0)
[2022-03-25 10:41] LABS: ALT 159 U/L (4-49); AST 54 U/L (17-59); African American GFR (CKD) >90 (>60 ml/min/1.73 sqM); Albumin 4.3 g/dL (3.5-5.0); Alkaline Phosphatase 77 U/L (38-126); Anion Gap 12 mmol/L; Blood Urea Nitrogen 15 mg/dL (9-20); C Reactive Protein <0.5 mg/dL (<1.0); Calcium 9.2 mg/dL (8.4-10.2); Carbon Dioxide 23 mmol/L (22-30); Chloride 102 mmol/L (98-107); Glucose 102 mg/dL (74-99); LDH 557 U/L (313-618); Magnesium 1.9 mg/dL (1.6-2.3); Non-African American GFR(CKD) >90 (>60 ml/min/1.73 sqM); Potassium 4.1 mmol/L (3.5-5.1); Sodium 137 mmol/L (137-145); Total Bilirubin 0.5 mg/dL (0.2-1.3)
--- NOTE | 2022-03-25 10:48 | XR ---
EXAMINATION TYPE: XR chest 2V DATE OF EXAM: 03/25/2022 COMPARISON: NONE HISTORY: Shortness of breath, suspected Covid 19 pneumonia TECHNIQUE: Frontal and lateral views of the chest are obtained. FINDINGS: There is no focal air space opacity, pleural effusion, or pneumothorax seen. The cardiac silhouette size is within normal limits. The osseous structures are intact. IMPRESSION: No acute cardiopulmonary process.
== END 2022-03-25 11:59 | disposition home or self-care (01) ==
LOC: EC 09:28
DX: U07.1 COVID-19 (principal); I10 Essential (primary) hypertension; M19.90 Unspecified osteoarthritis, unspecified site; F41.9 Anxiety disorder, unspecified; F17.200 Nicotine dependence, unspecified, uncomplicated; Z79.899 Other long term (current) drug therapy; Z88.1 Allergy status to other antibiotic agents; Z88.0 Allergy status to penicillin
CPT/HCPCS: 36415; 71046; 80053; 82728; 83605; 83615; 83735; 84145; 85025; 85379; 85610; 85730; 86140; 94640; 99285

== ENCOUNTER 2023-02-24 19:34 | Emergency (ER) | payer OTHER ==
--- NOTE | 2023-02-24 22:21 | ED ---
General Adult HPI - General Chief complaint: Abdominal Pain Stated complaint: abd pain Time Seen by Provider: 02/24/23 21:09 Source: patient Mode of arrival: EMS Limitations: no limitations - History of Present Illness Initial comments: This is a 52-year-old male who presents emergency department for suicidal thoughts. The patient refused to answer any questions to me as he was being seen in the hallway bed. The patient refused to answer any questions and stated that he did not have a plan. The patient stated "I just need time to step away from the world. The patient refused to answer any further questions and remained comfortably in bed without any further distress. - Related Data Previous Rx's Medication Instructions Recorded Acetaminophen Tab [Tylenol] 650 mg PO Q4HR PRN tab 05/16/21 Deville Carbonate [Deville 450 mg PO BID 30 Days tab 05/16/21 Carbonate ER] Nicotine Gum (Polacrilex) 2 mg BUCCAL Q4HR PRN 30 Days 05/16/21 [Nicorette] QUEtiapine [SEROquel] 25 mg PO BID 30 Days tab 05/16/21 QUEtiapine [SEROquel] 200 mg PO HS 30 Days tab 05/16/21 rOPINIRole HCL [Requip] 0.5 mg PO HS 30 Days tab 05/16/21 Albuterol Nebulized [Ventolin 2.5 mg INHALATION QID PRN #75 ml 03/25/22 Nebulized] Allergies Allergy/AdvReac Type Severity Reaction Status Date / Time doxycycline Allergy Rash/Hives Verified 03/25/22 09:49 levofloxacin [From Levaquin] Allergy Rash/Hives Verified 03/25/22 09:49 Penicillins Allergy rash,swelli Verified 03/25/22 09:49 ng Review of Systems ROS Statement: Those systems with pertinent positive or pertinent negative responses have been documented in the HPI. ROS Other: All systems not noted in ROS Statement are negative. Past Medical History Past Medical History: Hypertension, Osteoarthritis (OA) Additional Past Medical History / Comment(s): Restless Leg Syndrome. Hx ulcer , migraines, hx hypertension- was on rx but not currently, thought he had seizure last summer- was not seen, bursitis rt elbow-constantly draining,. hx of back injury-occ uses a cane History of Any Multi-Drug Resistant Organisms: None Reported Past Surgical History: Cholecystectomy, Hernia Repair, Orthopedic Surgery Additional Past Surgical History / Comment(s): ORIF rt wrist/hardware later rem cam, arthroscopy ky knees Past Anesthesia/Blood Transfusion Reactions: Previous Problems w/ Anesthesia, Motion Sickness Additional Past Anesthesia/Blood Transfusion Reaction / Comment(s): "Freaked out when woke up after gallbladder surgery, was trying to get out of bed." Past Psychological History: Anxiety Smoking Status: Former smoker Past Alcohol Use History: None Reported Past Drug Use History: None Reported - Past Family History Mother Family Medical History: No Reported History General Exam Limitations: no limitations General appearance: alert, in no apparent distress Head exam: Present: atraumatic, normocephalic, normal inspection Eye exam: Present: normal appearance, PERRL Pupils: Present: normal accommodation ENT exam: Present: normal exam, normal oropharynx, mucous membranes moist Neck exam: Present: normal inspection, full ROM Respiratory exam: Present: normal lung sounds bilaterally Cardiovascular Exam: Present: regular rate, normal rhythm, normal heart sounds GI/Abdominal exam: Present: soft, normal bowel sounds Extremities exam: Present: normal inspection, full ROM Back exam: Present: normal inspection, full ROM Neurological exam: Present: alert, oriented X3, CN II-XII intact Psychiatric exam: Present: suicidal ideation Skin exam: Present: warm, dry Course Vital Signs 02/24/23 02/24/23 02/25/23 19:42 20:28 04:55 Temperature 98.1 F 98.2 F Pulse Rate 110 H 101 H 78 Respiratory 18 20 19 Rate Blood Pressure 161/108 150/112 149/93 O2 Sat by Pulse 97 99 98 Oximetry Medical Decision Making - Medical Decision Making Was pt. sent in by a medical professional or institution (, PA, PHOTO STUDIO ASSISTANT, urgent care, hospital, or care home...) When possible be specific @ -No Did you speak to anyone other than the patient for history (EMS, parent, family, police, friend...)? What history was obtained from this source @ -No Did you review nursing and triage notes (agree or disagree)? Why? @ -I reviewed and agree with nursing and triage notes Were old charts reviewed (outside hosp., previous admission, EMS record, old EKG, old radiological studies, urgent care reports/EKG's, care home records)? Report findings @ -No old charts were reviewed Differential Diagnosis (chest pain, altered mental status, abdominal pain women, abdominal pain men, vaginal bleeding, weakness, fever, dyspnea, syncope, headache, dizziness, GI bleed, back pain, seizure, CVA, palpatations, mental health)? @ -Suicidal ideation, acute psychosis, paranoia EKG interpreted by me (3pts min.). @ -None X-rays interpreted by me (1pt min.). @ -None done CT interpreted by me (1pt min.). @ -None done U/S interpreted by me (1pt. min.). @ -None done What testing was considered but not performed or refused? (CT, X-rays, U/S, labs)? Why? @ -None What meds were considered but not given or refused? Why? @ -None Did you discuss the management of the patient with other professionals (professionals i.e. , PA, PHOTO STUDIO ASSISTANT, lab, RT, psych nurse, home health care social worker, special projects coordinator, teacher, chief administrative officer, spring encaser)? Give summary @ -Yes, EPS nurse was present and did evaluate the patient the bedside and recommended inpatient psychiatric care which required a transfer to an inpatient psychiatric facility. Was smoking cessation discussed for >3mins.? @ -No Was critical care preformed (if so, how long)? @ -No Were there social determinants of health that impacted care today? How? (Homelessness, low income, unemployed, alcoholism, drug addiction, transpor tation, low edu. Level, literacy, decrease access to med. care, care home, rehab)? @ -No Was there de-escalation of care discussed even if they declined (Discuss DNR or withdrawal of care, Hospice)? DNR status @ -No What co-morbidities impacted this encounter? (DM, HTN, Smoking, COPD, CAD, Cancer, CVA, ARF, Chemo, Hep., AIDS, mental health diagnosis, sleep apnea, morbid obesity)? @ -None Was patient admitted / discharged? Hospital course, mention meds given and route, prescriptions, significant lab abnormalities, going to OR and other pertinent info. @ -The patient was seen and evaluated emergency department. Physical exam, the patient was resting in bed without any acute distress. Vital signs admission were stable. The patient was medically cleared to be evaluated by EPS. EPS to evaluate the patient at the bedside and recommended inpatient psychiatric care and the patient did require transfer. Laboratory workup was obtained for transfer. EPS did petition the patient and I filled out a clinical certificate for the patient. The patient will be observed in the emergency department pending bed placement for transfer to inpatient significant facility. The patient was accepted to [facility] and was transferred in stable condition. Undiagnosed new problem with uncertain prognosis? @ -No Drug Therapy requiring intensive monitoring for toxicity (Heparin, Nitro, Insulin, Cardizem)? @ -No Were any procedures done? @ -No Diagnosis/symptom? @ -Suicide ideation, paranoia Acute, or Chronic, or Acute on Chronic? @ -Acute Uncomplicated (without systemic symptoms) or Complicated (systemic symptoms)? @ -Uncomplicated Side effects of treatment? @ -No Exacerbation, Progression, or Severe Exacerbation? @ -No Poses a threat to life or bodily function? How? (Chest pain, USA, [place], pneumonia, PE, COPD, DKA, ARF, appy, cholecystitis, CVA, Diverticulitis, Homicidal, Suicidal, threat to staff... and all critical care pts) @ -Yes, continued suicidal ideation can lead to an attempt and possible . - Lab Data Result diagrams: 02/25/23 00:38 02/25/23 00:38 Lab Results 02/25/23 02/25/23 02/25/23 Range/Units 00:38 00:38 00:38 WBC 5.3 (3.8-10.6) k/uL RBC 4.68 (4.30-5.90) m/uL Hgb 14.0 (13.0-17.5) gm/dL Hct 41.0 (39.0-53.0) % MCV 87.5 (80.0-100.0) fL MCH 29.8 (25.0-35.0) pg MCHC 34.1 (31.0-37.0) g/dL RDW 12.7 (11.5-15.5) % Plt Count 233 (150-450) k/uL MPV 7.6 Neutrophils % 64 % Lymphocytes % 28 % Monocytes % 4 % Eosinophils % 2 % Basophils % 0 % Neutrophils # 3.4 (1.3-7.7) k/uL Lymphocytes # 1.5 (1.0-4.8) k/uL Monocytes # 0.2 (0-1.0) k/uL Eosinophils # 0.1 (0-0.7) k/uL Basophils # 0.0 (0-0.2) k/uL Sodium 136 L (137-145) mmol/L Potassium 3.6 (3.5-5.1) mmol/L Chloride 102 (98-107) mmol/L Carbon Dioxide 27 (22-30) mmol/L Anion Gap 7 mmol/L BUN 15 (9-20) mg/dL Creatinine 0.61 L (0.66-1.25) mg/dL Est GFR (CKD-EPI)AfAm >90 (>60 ml/min/1.73 sqM) Est GFR (CKD-EPI)NonAf >90 (>60 ml/min/1.73 sqM) Glucose 134 H (74-99) mg/dL Calcium 9.0 (8.4-10.2) mg/dL Total Bilirubin 0.6 (0.2-1.3) mg/dL AST 44 (17-59) U/L ALT 44 (4-49) U/L Alkaline Phosphatase 68 (38-126) U/L Total Protein 6.7 (6.3-8.2) g/dL Albumin 4.0 (3.5-5.0) g/dL Urine Color Urine Appearance (Clear) Urine pH (5.0-8.0) Ur Specific [place] (1.001-1.035) Urine Protein (Negative) Urine Glucose (UA) (Negative) Urine Ketones (Negative) Urine Blood (Negative) Urine Nitrite (Negative) Urine Bilirubin (Negative) Urine Urobilinogen (<2.0) mg/dL Ur Leukocyte Esterase (Negative) Urine Opiates Screen (NotDetected) Ur Oxycodone Screen (NotDetected) Urine Methadone Screen (NotDetected) Ur Propoxyphene Screen (NotDetected) Ur Barbiturates Screen (NotDetected) U Tricyclic Antidepress (NotDetected) Ur Phencyclidine Scrn (NotDetected) Ur Amphetamines Screen (NotDetected) U Methamphetamines Scrn (NotDetected) U Benzodiazepines Scrn (NotDetected) Urine Cocaine Screen (NotDetected) U Marijuana (THC) Screen (NotDetected) Coronavirus (PCR) Not Detected (Not Detectd) 02/25/23 Range/Units 00:41 WBC (3.8-10.6) k/uL RBC (4.30-5.90) m/uL Hgb (13.0-17.5) gm/dL Hct (39.0-53.0) % MCV (80.0-100.0) fL MCH (25.0-35.0) pg MCHC (31.0-37.0) g/dL RDW (11.5-15.5) % Plt Count (150-450) k/uL MPV Neutrophils % % Lymphocytes % % Monocytes % % Eosinophils % % Basophils % % Neutrophils # (1.3-7.7) k/uL Lymphocytes # (1.0-4.8) k/uL Monocytes # (0-1.0) k/uL Eosinophils # (0-0.7) k/uL Basophils # (0-0.2) k/uL Sodium (137-145) mmol/L Potassium (3.5-5.1) mmol/L Chloride (98-107) mmol/L Carbon Dioxide (22-30) mmol/L Anion Gap mmol/L BUN (9-20) mg/dL Creatinine (0.66-1.25) mg/dL Est GFR (CKD-EPI)AfAm (>60 ml/min/1.73 sqM) Est GFR (CKD-EPI)NonAf (>60 ml/min/1.73 sqM) Glucose (74-99) mg/dL Calcium (8.4-10.2) mg/dL Total Bilirubin (0.2-1.3) mg/dL AST (17-59) U/L ALT (4-49) U/L Alkaline Phosphatase (38-126) U/L Total Protein (6.3-8.2) g/dL Albumin (3.5-5.0) g/dL Urine Color Yellow Urine Appearance Clear (Clear) Urine pH 5.5 (5.0-8.0) Ur Specific [place] 1.026 (1.001-1.035) Urine Protein Trace H (Negative) Urine Glucose (UA) Negative (Negative) Urine Ketones Negative (Negative) Urine Blood Negative (Negative) Urine Nitrite Negative (Negative) Urine Bilirubin Negative (Negative) Urine Urobilinogen <2.0 (<2.0) mg/dL Ur Leukocyte Esterase Negative (Negative) Urine Opiates Screen Not Detected (NotDetected) Ur Oxycodone Screen Not Detected (NotDetected) Urine Methadone Screen Not Detected (NotDetected) Ur Propoxyphene Screen Not Detected (NotDetected) Ur Barbiturates Screen Not Detected (NotDetected) U Tricyclic Antidepress Not Detected (NotDetected) Ur Phencyclidine Scrn Not Detected (NotDetected) Ur Amphetamines Screen Detected H (NotDetected) U Methamphetamines Scrn Detected H (NotDetected) U Benzodiazepines Scrn Not Detected (NotDetected) Urine Cocaine Screen Not Detected (NotDetected) U Marijuana (THC) Screen Not Detected (NotDetected) Coronavirus (PCR) (Not Detectd) Disposition Clinical Impression: Suicidal ideation, Paranoia Disposition: TRANSFER TO PSYCH HOSP/UNIT Condition: Stable Is patient prescribed a controlled substance at d/c from ED?: No Referrals: None,Stated [Primary Care Provider] - 1-2 days Time of Disposition: 00:05 - Out of Hospital Transfer - Req. Specs Out of Hospital Transfer - Requested Specifics: Psychiatric Non-ICU ([facility]
[2023-02-24] MEDS ORDERED: NICOTINE 21MG/24HR PATCH TRANSDERM STA (23:27)
[2023-02-25 00:46] LABS: Basophils % (A) 0 %; Eosinophils # (A) 0.1 k/uL (0-0.7); Eosinophils % (A) 2 %; Lymphocytes # (A) 1.5 k/uL (1.0-4.8); Lymphocytes % (A) 28 %; MCH 29.8 pg (25.0-35.0); MCHC 34.1 g/dL (31.0-37.0); MCV 87.5 fL (80.0-100.0); Mean Platelet Volume 7.6; Monocytes # (A) 0.2 k/uL (0-1.0); Monocytes % (A) 4 %; Neutrophils # (A) 3.4 k/uL (1.3-7.7); Neutrophils % (A) 64 %; Platelet Count 233 k/uL (150-450); RBC 4.68 m/uL (4.30-5.90); RDW 12.7 % (11.5-15.5); WBC 5.3 k/uL (3.8-10.6)
[2023-02-25 00:46] LABS: Appearance,Urine Clear (Clear); Bilirubin,Urine Negative (Negative); Blood,Urine Negative (Negative); Color,Urine Yellow; Glucose,Urine (UA) Negative (Negative); Ketones,Urine Negative (Negative); Leukocyte Esterase,Urine Negative (Negative); Nitrite,Urine Negative (Negative); PH, Urine 5.5 (5.0-8.0); Protein,Urine Trace (Negative); Specific Gravity,Urine 1.026 (1.001-1.035); Urobilinogen,Urine <2.0 mg/dL (<2.0)
[2023-02-25 00:58] LABS: ALT 44 U/L (4-49); AST 44 U/L (17-59); African American GFR (CKD) >90 (>60 ml/min/1.73 sqM); Alkaline Phosphatase 68 U/L (38-126); Anion Gap 7 mmol/L; Blood Urea Nitrogen 15 mg/dL (9-20); Carbon Dioxide 27 mmol/L (22-30); Chloride 102 mmol/L (98-107); Glucose 134 mg/dL (74-99); Non-African American GFR(CKD) >90 (>60 ml/min/1.73 sqM); Potassium 3.6 mmol/L (3.5-5.1); Sodium 136 mmol/L (137-145); Total Bilirubin 0.6 mg/dL (0.2-1.3); Total Protein 6.7 g/dL (6.3-8.2)
[2023-02-25 01:02] LABS: Amphetamine Screen,Urine Detected (NotDetected); Barbiturate Screen,Urine Not Detected (NotDetected); Benzodiazepines Screen,Urine Not Detected (NotDetected); Cocaine Screen,Urine Not Detected (NotDetected); Methadone Screen, Urine Not Detected (NotDetected); Opiate Screen,Urine Not Detected (NotDetected); Oxycodone Screen, Urine Not Detected (NotDetected); Phencyclidine Screen,Urine Not Detected (NotDetected); Tricyclic Antidepressant,Urine Not Detected (NotDetected); Urn Cannabinoid Scrn Not Detected (NotDetected)
[2023-02-25] MEDS ORDERED: diphenhydrAMINE 50 MG CAP PO STA (01:22)
[2023-02-25] MEDS ORDERED: LORazepam 2 MG/ML INJ IM STA ×2 (02:13→11:19)
[2023-02-25] MEDS: LORazepam 2 MG/ML INJ IM STA (15:50)
[2023-02-25 15:55] VITALS: BP 134/86; PULSE 70; RESP 20; TEMP 98.3
== END 2023-02-25 15:53 ==
LOC: EC 19:34
DX: F22 Delusional disorders (principal); R45.851 Suicidal ideations; I10 Essential (primary) hypertension; Z20.822 Contact with and (suspected) exposure to COVID-19; Z90.49 Acquired absence of other specified parts of digestive tract; Z88.0 Allergy status to penicillin; Z88.1 Allergy status to other antibiotic agents; Z87.891 Personal history of nicotine dependence
CPT/HCPCS: 99285; 96372; 82075; S4990; 36415; 80053; 80306; 81003; 85025; 87635

== ENCOUNTER 2023-05-30 08:09 | Emergency (ER) | payer OTHER ==
[2023-05-30 08:43] VITALS: TEMP 98.2
[2023-05-30] MEDS ORDERED: SODIUM CHLORIDE 0.9% 500 ML 500 ML IV STA (08:44)
[2023-05-30] MEDS ORDERED: SODIUM CHLORIDE 0.9% 1,000 ML IV STA (08:44)
[2023-05-30] MEDS ORDERED: ONDANSETRON 4 MG/2 ML VIAL IVP STA (08:44)
[2023-05-30] MEDS ORDERED: KETOROLAC 15 MG/ML 1 ML VIAL IVP STA (08:45)
--- NOTE | 2023-05-30 08:52 | ED ---
GI Bleed HPI - General Chief complaint: Upper Respiratory Infection Stated complaint: cough,congestion Time Seen by Provider: 05/30/23 08:29 Source: patient, RN notes reviewed, old records reviewed Mode of arrival: ambulatory Limitations: no limitations - History of Present Illness Initial comments: This is a 52-year-old male to the emergency department for evaluation. Patient presents today for evaluation regards to not feeling well. She complains of runny nose coughs occasional sore throat. Weakness abdominal pain bodyaches body pain sore throat nausea vomiting diarrhea diaphoresis chills fever. Patient symptoms are persistent here in the emergency department today. Patient states she's had symptoms for a few days now and family becoming concerned that the symptoms are not getting better off the hospital sick. patient is no travel history no sick contacts does take blood pressure medication which he did not take today MD complaint: other (Patient salicylate symptoms or complaints of GI bleed just bodyaches and pains) -: days(s) Radiation: none Quality: cramping Consistency: constant Improves with: none Worsens with: none Treatments Prior to Arrival: none - Related Data Home Medications Medication Instructions Recorded Confirmed Buprenorphine HCl/Naloxone HCl 1 film SL BID 02/25/23 02/25/23 [Suboxone 8 mg-2 mg Sl Film] Gabapentin [Neurontin] 300 mg PO TID 02/25/23 02/25/23 amLODIPine [Norvasc] 10 mg PO DAILY 02/25/23 02/25/23 lisinopriL 30 mg PO DAILY 02/25/23 02/25/23 Allergies Allergy/AdvReac Type Severity Reaction Status Date / Time doxycycline Allergy Rash/Hives Verified 05/30/23 08:25 levofloxacin [From Levaquin] Allergy Rash/Hives Verified 05/30/23 08:25 Penicillins Allergy rash,swelli Verified 05/30/23 08:25 ng Review of Systems ROS Statement: Those systems with pertinent positive or pertinent negative responses have been documented in the HPI. ROS Other: All systems not noted in ROS Statement are negative. Past Medical History Past Medical History: Hypertension, Osteoarthritis (OA) Additional Past Medical History / Comment(s): Restless Leg Syndrome. Hx ulcer , migraines, hx hypertension- was on rx but not currently, thought he had seizure last summer- was not seen, bursitis rt elbow-constantly draining,. hx of back injury-occ uses a cane History of Any Multi-Drug Resistant Organisms: None Reported Past Surgical History: Cholecystectomy, Hernia Repair, Orthopedic Surgery Additional Past Surgical History / Comment(s): ORIF rt wrist/hardware later removed, arthroscopy ky knees Past Anesthesia/Blood Transfusion Reactions: Previous Problems w/ Anesthesia, Motion Sickness Additional Past Anesthesia/Blood Transfusion Reaction / Comment(s): "Freaked out when woke up after gallbladder surgery, was trying to get out of bed." Past Psychological History: Anxiety Smoking Status: Former smoker Past Alcohol Use History: None Reported Past Drug Use History: None Reported - Past Family History Mother Family Medical History: No Reported History General Exam - General Exam Comments Initial Comments: no GI bleed Limitations: no limitations General appearance: alert, in no apparent distress Head exam: Present: atraumatic, normocephalic, normal inspection Eye exam: Present: normal appearance, PERRL, EOMI. Absent: scleral icterus, conjunctival injection, periorbital swelling ENT exam: Present: normal exam, mucous membranes moist Neck exam: Present: normal inspection. Absent: tenderness, meningismus, lymphadenopathy Respiratory exam: Present: normal lung sounds bilaterally. Absent: respiratory distress, wheezes, rales, rhonchi, stridor Cardiovascular Exam: Present: regular rate, normal rhythm, normal heart sounds. Absent: systolic murmur, diastolic murmur, rubs, gallop, clicks GI/Abdominal exam: Present: soft, normal bowel sounds. Absent: distended, tenderness, guarding, rebound, rigid Extremities exam: Present: normal inspection, full ROM, normal capillary refill. Absent: tenderness, pedal edema, joint swelling, calf tenderness Back exam: Present: normal inspection Neurological exam: Present: alert, oriented X3, CN II-XII intact Psychiatric exam: Present: normal affect, normal mood Skin exam: Present: warm, dry, intact, normal color. Absent: rash Course Vital Signs 05/30/23 05/30/23 05/30/23 08:23 09:03 09:05 Temperature 98.2 F Pulse Rate 73 64 Respiratory 18 16 20 Rate Blood Pressure 170/112 178/125 O2 Sat by Pulse 96 96 Oximetry 05/30/23 05/30/23 10:00 11:04 Temperature Pulse Rate 94 65 Respiratory 20 16 Rate Blood Pressure 163/109 165/109 O2 Sat by Pulse 95 98 Oximetry - Reevaluation(s) Reevaluation #1: 05/30/23 08:51 Records reviewed Reevaluation #2: Patient symptoms are unchanged here in The ER Reevaluation #3: Informed results and questions answered Reevaluation #4: 05/30/23 08:52 Was pt. sent in by a medical professional or institution (LENNY Aldana, ANALYTICAL LAB ANALYST, urgent care, hospital, or intermediate...) When possible be specific @ -no Did you speak to anyone other than the patient for history (EMS, parent, family, police, friend...)? What history was obtained from this source @ -no Did you review nursing and triage notes (agree or disagree)? Why? @ -agree Are old charts reviewed (outside hosp., previous admission, EMS record, old EKG, old radiological studies, urgent care reports/EKG's, intermediate records)? Report findings @ -yes Differential Diagnosis (chest pain, altered mental status, abdominal pain women, abdominal pain men, vaginal bleeding, weakness, fever, dyspnea, syncope, headache, dizziness, GI bleed, back pain, seizure, CVA, palpatations, mental health, musculoskeletal)? @ -prior EKG interpreted by me (3pts min.). @ -yes X-rays interpreted by me (1pt min.). @ -yes negative for acute disease CT interpreted by me (1pt min.). @ -no U/S interpreted by me (1pt. min.). @ -no What testing was considered but not performed or refused? (CT, X-rays, U/S, labs)? Why? @ -none What meds were considered but not given or refused? Why? @ -none Did you discuss the management of the patient with other professionals (professionals i.e. LENNY Aldana, ANALYTICAL LAB ANALYST, lab, RT, psych nurse, social work case manager, seaport planning manager, teacher, production officer, dependency case manager)? Give summary @ -no Was smoking cessation discussed for >3mins.? @ -no Was critical care preformed (if so, how long)? @ -no Were there social determinants of health that impacted care today? How? (Homelessness, low income, unemployed, alcoholism, drug addiction, transportation, low edu. Level, literacy, decrease access to med. care, fci, rehab)? @ -none Was there de-escalation of care discussed even if they declined (Discuss DNR or withdrawal of care, Hospice)? DNR status @ -no What co-morbidities impacted this encounter? (DM, HTN, Smoking, COPD, CAD, Cancer, CVA, ARF, Chemo, Hep., AIDS, mental health diagnosis, sleep apnea, morbid obesity)? @ -none Was patient admitted / discharged? Hospital course, mention meds given and route, prescriptions, significant lab abnormalities, going to OR and other pertinent info. @ - 52 male with symptoms of breast for infection, runny nose cough congestion occasionally sore throat. Patient has no fevers no chest pain no current shortness of breath and symptoms improved here in the area and can be discharged Discharged Undiagnosed new problem with uncertain prognosis? @ -no Drug Therapy requiring intensive monitoring for toxicity (Heparin, Nitro, Insulin, Cardizem)? @ -no Were any procedures done? @ -no Diagnosis/symptom? @ -Sinusitis with of upper respiratory infection Acute, or Chronic, or Acute on Chronic? @ -Acute Uncomplicated (without systemic symptoms) or Complicated (systemic symptoms)? @ -Complicated Side effects of treatment? @ -no Exacerbation, Progression, or Severe Exacerbation? @ -exacerbation Poses a threat to life or bodily function? How? (Chest pain, USA, [place], pneumonia, PE, COPD, DKA, ARF, appy, cholecystitis, CVA, Diverticulitis, Homicidal, Suicidal, threat to staff... and all critical care pts) @ -no Medical Decision Making - Medical Decision Making 52 male with symptoms of breast for infection, runny nose cough congestion occasionally sore throat. Patient has no fevers no chest pain no current shortness of breath and symptoms improved here in the area and can be discharged - Lab Data Result diagrams: 05/30/23 08:44 05/30/23 08:44 Lab Results 05/30/23 05/30/23 05/30/23 Range/Units 08:44 08:44 08:44 WBC 6.7 (3.8-10.6) k/uL RBC 4.67 (4.30-5.90) m/uL Hgb 14.3 (13.0-17.5) gm/dL Hct 41.4 (39.0-53.0) % MCV 88.5 (80.0-100.0) fL MCH 30.6 (25.0-35.0) pg MCHC 34.6 (31.0-37.0) g/dL RDW 13.6 (11.5-15.5) % Plt Count 262 (150-450) k/uL MPV 7.8 Neutrophils % 69 % Lymphocytes % 22 % Monocytes % 4 % Eosinophils % 3 % Basophils % 0 % Neutrophils # 4.6 (1.3-7.7) k/uL Lymphocytes # 1.5 (1.0-4.8) k/uL Monocytes # 0.3 (0-1.0) k/uL Eosinophils # 0.2 (0-0.7) k/uL Basophils # 0.0 (0-0.2) k/uL Sodium 141 (137-145) mmol/L Potassium 4.4 (3.5-5.1) mmol/L Chloride 105 (98-107) mmol/L Carbon Dioxide 26 (22-30) mmol/L Anion Gap 10 mmol/L BUN 20 (9-20) mg/dL Creatinine 0.68 (0.66-1.25) mg/dL Est GFR (CKD-EPI)AfAm >90 (>60 ml/min/1.73 sqM) Est GFR (CKD-EPI)NonAf >90 (>60 ml/min/1.73 sqM) Glucose 107 H (74-99) mg/dL Calcium 9.2 (8.4-10.2) mg/dL Phosphorus 3.8 (2.5-4.5) mg/dL Magnesium 1.9 (1.6-2.3) mg/dL Total Bilirubin 0.4 (0.2-1.3) mg/dL AST 26 (17-59) U/L ALT 47 (4-49) U/L Alkaline Phosphatase 106 (38-126) U/L Troponin I <0.012 (0.000-0.034) ng/mL NT-Pro-B Natriuret Pep 31 pg/mL Total Protein 6.9 (6.3-8.2) g/dL Albumin 4.0 (3.5-5.0) g/dL Influenza Type A (PCR) (Not Detectd) Influenza Type B (PCR) (Not Detectd) RSV (PCR) (Not Detectd) SARS-CoV-2 (PCR) (Not Detectd) 05/30/23 Range/Units 08:45 WBC (3.8-10.6) k/uL RBC (4.30-5.90) m/uL Hgb (13.0-17.5) gm/dL Hct (39.0-53.0) % MCV (80.0-100.0) fL MCH (25.0-35.0) pg MCHC (31.0-37.0) g/dL RDW (11.5-15.5) % Plt Count (150-450) k/uL MPV Neutrophils % % Lymphocytes % % Monocytes % % Eosinophils % % Basophils % % Neutrophils # (1.3-7.7) k/uL Lymphocytes # (1.0-4.8) k/uL Monocytes # (0-1.0) k/uL Eosinophils # (0-0.7) k/uL Basophils # (0-0.2) k/uL Sodium (137-145) mmol/L Potassium (3.5-5.1) mmol/L Chloride (98-107) mmol/L Carbon Dioxide (22-30) mmol/L Anion Gap mmol/L BUN (9-20) mg/dL Creatinine (0.66-1.25) mg/dL Est GFR (CKD-EPI)AfAm (>60 ml/min/1.73 sqM) Est GFR (CKD-EPI)NonAf (>60 ml/min/1.73 sqM) Glucose (74-99) mg/dL Calcium (8.4-10.2) mg/dL Phosphorus (2.5-4.5) mg/dL Magnesium (1.6-2.3) mg/dL Total Bilirubin (0.2-1.3) mg/dL AST (17-59) U/L ALT (4-49) U/L Alkaline Phosphatase (38-126) U/L Troponin I (0.000-0.034) ng/mL NT-Pro-B Natriuret Pep pg/mL Total Protein (6.3-8.2) g/dL Albumin (3.5-5.0) g/dL Influenza Type A (PCR) Not Detected (Not Detectd) Influenza Type B (PCR) Not Detected (Not Detectd) RSV (PCR) Not Detected (Not Detectd) SARS-CoV-2 (PCR) Not Detected (Not Detectd) - EKG Data -: EKG Interpreted by Me (EKG is sinus 65 LA 136 QRS 94 QTC 35) - Radiology Data Radiology results: report reviewed (Chest x-rays negative for acute disease), image reviewed Disposition Clinical Impression: Viral syndrome, Upper respiratory tract infection, Sinusitis Disposition: HOME SELF-CARE Condition: Good Instructions (If sedation given, give patient instructions): Viral Syndrome (ED) Is patient prescribed a controlled substance at d/c from ED?: No Referrals: Artie Zhang DO [Primary Care Provider] - 1-2 days Time of Disposition: 10:50
[2023-05-30 09:17] LABS: Basophils % (A) 0 %; Eosinophils # (A) 0.2 k/uL (0-0.7); Eosinophils % (A) 3 %; HCT 41.4 % (39.0-53.0); HGB 14.3 gm/dL (13.0-17.5); Lymphocytes # (A) 1.5 k/uL (1.0-4.8); Lymphocytes % (A) 22 %; MCH 30.6 pg (25.0-35.0); MCHC 34.6 g/dL (31.0-37.0); MCV 88.5 fL (80.0-100.0); Mean Platelet Volume 7.8; Monocytes # (A) 0.3 k/uL (0-1.0); Monocytes % (A) 4 %; Neutrophils # (A) 4.6 k/uL (1.3-7.7); Neutrophils % (A) 69 %; Platelet Count 262 k/uL (150-450); RBC 4.67 m/uL (4.30-5.90); RDW 13.6 % (11.5-15.5); WBC 6.7 k/uL (3.8-10.6)
--- NOTE | 2023-05-30 09:24 | XR ---
EXAMINATION TYPE: XR chest 1V portable DATE OF EXAM: 05/30/2023 Comparison: 03/25/2022 Clinical History: 52-year-old male cough Findings: Heart normal size. Aorta and pulmonary vasculature within normal limits. No consolidation or pleural effusion. Impression: No acute cardiopulmonary process.
[2023-05-30 09:47] LABS: ALT 47 U/L (4-49); AST 26 U/L (17-59); African American GFR (CKD) >90 (>60 ml/min/1.73 sqM); Alkaline Phosphatase 106 U/L (38-126); Anion Gap 10 mmol/L; Blood Urea Nitrogen 20 mg/dL (9-20); Calcium 9.2 mg/dL (8.4-10.2); Carbon Dioxide 26 mmol/L (22-30); Chloride 105 mmol/L (98-107); Glucose 107 mg/dL (74-99); Magnesium 1.9 mg/dL (1.6-2.3); Non-African American GFR(CKD) >90 (>60 ml/min/1.73 sqM); Phosphorus 3.8 mg/dL (2.5-4.5); Potassium 4.4 mmol/L (3.5-5.1); Sodium 141 mmol/L (137-145); Total Bilirubin 0.4 mg/dL (0.2-1.3); Total Protein 6.9 g/dL (6.3-8.2)
[2023-05-30 09:56] LABS: NT-Pro-B-Type Natriuretic Pept 31 pg/mL
[2023-05-30 11:19] VITALS: BP 165/109; PULSE 65; RESP 16
== END 2023-05-30 11:05 | disposition home or self-care (01) ==
LOC: EC 08:09
DX: B34.9 Viral infection, unspecified (principal); J06.9 Acute upper respiratory infection, unspecified; J32.9 Chronic sinusitis, unspecified; I10 Essential (primary) hypertension; Z20.822 Contact with and (suspected) exposure to COVID-19; Z79.899 Other long term (current) drug therapy; Z88.0 Allergy status to penicillin; Z88.1 Allergy status to other antibiotic agents; Z87.891 Personal history of nicotine dependence; Z90.49 Acquired absence of other specified parts of digestive tract
CPT/HCPCS: 36415; 93005; 83880; 80053; 83735; 84100; 84484; 85025; 87636; 71045; 99284; 96374; 96375; 96361; J2405; J1885

== ENCOUNTER 2023-07-07 01:21 | Emergency (ER) | payer OTHER ==
[2023-07-07] MEDS ORDERED: MAG HYDROX/AL HYDROX/SIMETH 30 ML, HYOSCYAMINE ELIXIR 10 ML, LIDOCAINE VISCOUS 2% 10 ML PO STA ×3 (01:36)
[2023-07-07] MEDS ORDERED: SODIUM CHLORIDE 0.9% 500 ML 500 ML IV STA (01:36)
--- NOTE | 2023-07-07 01:39 | ED ---
General Adult HPI - General Chief complaint: Chest Pain Stated complaint: Chest pain Time Seen by Provider: 07/07/23 01:25 Source: patient, EMS, RN notes reviewed, old records reviewed Mode of arrival: EMS Limitations: no limitations - History of Present Illness Initial comments: 52-year-old male presents for evaluation of chest pain and mild dyspnea. Pain was associated with vomiting. He states that it was a burning sensation in his chest. Denied abdominal pain. Denies fever. Denies prior cardiac history. Pain is nonradiating. Patient given aspirin by paramedics during transport. - Related Data Home Medications Medication Instructions Recorded Confirmed Buprenorphine HCl/Naloxone HCl 1 film SL BID 02/25/23 02/25/23 [Suboxone 8 mg-2 mg Sl Film] Gabapentin [Neurontin] 300 mg PO TID 02/25/23 02/25/23 amLODIPine [Norvasc] 10 mg PO DAILY 02/25/23 02/25/23 lisinopriL 30 mg PO DAILY 02/25/23 02/25/23 Allergies Allergy/AdvReac Type Severity Reaction Status Date / Time doxycycline Allergy Rash/Hives Verified 07/07/23 01:26 levofloxacin [From Levaquin] Allergy Rash/Hives Verified 07/07/23 01:26 Penicillins Allergy rash,swelli Verified 07/07/23 01:26 ng Review of Systems ROS Statement: Those systems with pertinent positive or pertinent negative responses have been documented in the HPI. ROS Other: All systems not noted in ROS Statement are negative. Past Medical History Past Medical History: Hypertension, Osteoarthritis (OA) Additional Past Medical History / Comment(s): Restless Leg Syndrome. Hx ulcer , migraines, hx hypertension- was on rx but not currently, thought he had seizure last summer- was not seen, bursitis rt elbow-constantly draining,. hx of back injury-occ uses a cane History of Any Multi-Drug Resistant Organisms: None Reported Past Surgical History: Cholecystectomy, Hernia Repair, Orthopedic Surgery Additional Past Surgical History / Comment(s): ORIF rt wrist/hardware later removed, arthroscopy ky knees Past Anesthesia/Blood Transfusion Reactions: Previous Problems w/ Anesthesia, Motion Sickness Additional Past Anesthesia/Blood Transfusion Reaction / Comment(s): "Freaked out when woke up after gallbladder surgery, was trying to get out of bed." Past Psychological History: Anxiety Smoking Status: Former smoker Past Alcohol Use History: None Reported Past Drug Use History: None Reported - Past Family History Mother Family Medical History: No Reported History General Exam Limitations: no limitations General appearance: alert, in no apparent distress Head exam: Present: atraumatic, normocephalic Eye exam: Present: normal appearance, PERRL ENT exam: Present: normal exam Neck exam: Present: normal inspection. Absent: tenderness, meningismus Respiratory exam: Present: normal lung sounds bilaterally. Absent: respiratory distress, wheezes Cardiovascular Exam: Present: regular rate, normal rhythm GI/Abdominal exam: Present: soft, tenderness (Mild epigastric tenderness). Absent: distended Extremities exam: Present: normal inspection, normal capillary refill. Absent: pedal edema, calf tenderness Neurological exam: Present: alert, oriented X3 Psychiatric exam: Present: normal affect, normal mood Skin exam: Present: warm, dry, intact. Absent: cyanosis, diaphoretic Course Vital Signs 07/07/23 07/07/23 01:22 02:46 Temperature 98.5 F Pulse Rate 80 62 Respiratory 18 18 Rate Blood Pressure 152/114 146/100 O2 Sat by Pulse 94 L 92 L Oximetry Medical Decision Making - Medical Decision Making Was pt. sent in by a medical professional or institution (, PA, AIRCRAFT LIFE SUPPORT FITTER, urgent care, hospital, or retirement...) When possible be specific @ -No Did you speak to anyone other than the patient for history (EMS, parent, family, police, friend...)? What history was obtained from this source @ -No Did you review nursing and triage notes (agree or disagree)? Why? @ -I reviewed and agree with nursing and triage notes Were old charts reviewed (outside hosp., previous admission, EMS record, old EKG, old radiological studies, urgent care reports/EKG's, retirement records)? Report findings @ -No old charts were reviewed Differential Diagnosis (chest pain, altered mental status, abdominal pain women, abdominal pain men, vaginal bleeding, weakness, fever, dyspnea, syncope, headache, dizziness, GI bleed, back pain, seizure, CVA, palpatations, mental health, musculoskeletal)? @ -Differential Chest Pain: Stable Angina, Unstable Angina, STEMI, NSTEMI Aortic Dissection, Pneumothorax, Musculoskeletal, Esophageal Spasm GERD, Cholecystitis, Pancreatitis, Zoster, this is not meant to be an all-inclusive list. EKG interpreted by me (3pts min.). @ -Sinus rhythm rate of 80, AL interval 160, QRS duration 94, QTc [address] segment elevation. X-rays interpreted by me (1pt min.). @ -Chest x-ray negative for acute cardiopulmonary findings. CT interpreted by me (1pt min.). @ -None done U/S interpreted by me (1pt. min.). @ -None done What testing was considered but not performed or refused? (CT, X-rays, U/S, labs)? Why? @ -None What meds were considered but not given or refused? Why? @ -None Did you discuss the management of the patient with other professionals (professionals i.e. , PA, AIRCRAFT LIFE SUPPORT FITTER, lab, RT, psych nurse, social services manager, senior hris analyst, teacher, civil preparedness training officer, lead case manager)? Give summary @ -No Was smoking cessation discussed for >3mins.? @ -No Was critical care preformed (if so, how long)? @ -No Were there social determinants of health that impacted care today? How? (Homelessness, low income, unemployed, alcoholism, drug addiction, transportation, low edu. Level, literacy, decrease access to med. care, penitentiary, rehab)? @ -No Was there de-escalation of care discussed even if they declined (Discuss DNR or withdrawal of care, Hospice)? DNR status @ -No What co-morbidities impacted this encounter? (DM, HTN, Smoking, COPD, CAD, Cancer, CVA, ARF, Chemo, Hep., AIDS, mental health diagnosis, sleep apnea, morbid obesity)? @ -Hypertension. Was patient admitted / discharged? Hospital course, mention meds given and route, prescriptions, significant lab abnormalities, going to OR and other pertinent info. @52-year-old male presenting with an episode of chest pain. This was associated with vomiting and the patient does admit to eating jalapeno not shows. I suspect that symptoms were related to reflux however the patient has risk factors for ACS. EKG was sinus rhythm without ST segment elevation. Chest x- ray clear. Patient has normal CBC, normal CMP, negative troponin. I did plan to repeat the troponin at 3 hours however patient declined. He states he wishes to leave the emergency department and will follow-up with his primary care provider. Symptoms resolved. Undiagnosed new problem with uncertain prognosis? @ -No Drug Therapy requiring intensive monitoring for toxicity (Heparin, Nitro, Insulin, Cardizem)? @ -No Were any procedures done? @ -No Diagnosis/symptom? @ -Chest pain Acute, or Chronic, or Acute on Chronic? @Acute Uncomplicated (without systemic symptoms) or Complicated (systemic symptoms)? @ -Default Side effects of treatment? @ -No Exacerbation, Progression, or Severe Exacerbation? @ -No Poses a threat to life or bodily function? How? (Chest pain, [place], [place], pneumonia, PE, COPD, DKA, ARF, appy, cholecystitis, CVA, Diverticulitis, Homicidal, Suicidal, threat to staff... and all critical care pts) @ -Low risk at this time] - Lab Data Result diagrams: 07/07/23 01:37 07/07/23 01:37 Lab Results 07/07/23 07/07/23 07/07/23 Range/Units 01:37 01:37 01:37 WBC 5.0 (3.8-10.6) k/uL RBC 5.02 (4.30-5.90) m/uL Hgb 15.7 (13.0-17.5) gm/dL Hct 44.2 (39.0-53.0) % MCV 88.0 (80.0-100.0) fL MCH 31.3 (25.0-35.0) pg MCHC 35.5 (31.0-37.0) g/dL RDW 12.5 (11.5-15.5) % Plt Count 228 (150-450) k/uL MPV 7.4 Neutrophils % 45 % Lymphocytes % 44 % Monocytes % 5 % Eosinophils % 3 % Basophils % 1 % Neutrophils # 2.2 (1.3-7.7) k/uL Lymphocytes # 2.2 (1.0-4.8) k/uL Monocytes # 0.3 (0-1.0) k/uL Eosinophils # 0.1 (0-0.7) k/uL Basophils # 0.0 (0-0.2) k/uL PT 9.9 L (10.0-12.5) sec INR 0.9 (<1.2) APTT 22.2 (22.0-30.0) sec D-Dimer 0.28 (<0.60) mg/L FEU Sodium 140 (137-145) mmol/L Potassium 3.8 (3.5-5.1) mmol/L Chloride 107 (98-107) mmol/L Carbon Dioxide 26 (22-30) mmol/L Anion Gap 7 mmol/L BUN 15 (9-20) mg/dL Creatinine 0.68 (0.66-1.25) mg/dL Est GFR (CKD-EPI)AfAm >90 (>60 ml/min/1.73 sqM) Est GFR (CKD-EPI)NonAf >90 (>60 ml/min/1.73 sqM) Glucose 94 (74-99) mg/dL Calcium 9.1 (8.4-10.2) mg/dL Magnesium 1.9 (1.6-2.3) mg/dL Total Bilirubin 0.4 (0.2-1.3) mg/dL AST 34 (17-59) U/L ALT 58 H (4-49) U/L Alkaline Phosphatase 88 (38-126) U/L Troponin I (0.000-0.034) ng/mL Total Protein 6.9 (6.3-8.2) g/dL Albumin 4.2 (3.5-5.0) g/dL Lipase 136 (23-300) U/L Serum Alcohol <10 mg/dL 07/07/23 Range/Units 01:37 WBC (3.8-10.6) k/uL RBC (4.30-5.90) m/uL Hgb (13.0-17.5) gm/dL Hct (39.0-53.0) % MCV (80.0-100.0) fL MCH (25.0-35.0) pg MCHC (31.0-37.0) g/dL RDW (11.5-15.5) % Plt Count (150-450) k/uL MPV Neutrophils % % Lymphocytes % % Monocytes % % Eosinophils % % Basophils % % Neutrophils # (1.3-7.7) k/uL Lymphocytes # (1.0-4.8) k/uL Monocytes # (0-1.0) k/uL Eosinophils # (0-0.7) k/uL Basophils # (0-0.2) k/uL PT (10.0-12.5) sec INR (<1.2) APTT (22.0-30.0) sec D-Dimer (<0.60) mg/L FEU Sodium (137-145) mmol/L Potassium (3.5-5.1) mmol/L Chloride (98-107) mmol/L Carbon Dioxide (22-30) mmol/L Anion Gap mmol/L BUN (9-20) mg/dL Creatinine (0.66-1.25) mg/dL Est GFR (CKD-EPI)AfAm (>60 ml/min/1.73 sqM) Est GFR (CKD-EPI)NonAf (>60 ml/min/1.73 sqM) Glucose (74-99) mg/dL Calcium (8.4-10.2) mg/dL Magnesium (1.6-2.3) mg/dL Total Bilirubin (0.2-1.3) mg/dL AST (17-59) U/L ALT (4-49) U/L Alkaline Phosphatase (38-126) U/L Troponin I <0.012 (0.000-0.034) ng/mL Total Protein (6.3-8.2) g/dL Albumin (3.5-5.0) g/dL Lipase (23-300) U/L Serum Alcohol mg/dL Disposition Clinical Impression: Chest pain Disposition: HOME SELF-CARE Condition: Fair Instructions (If sedation given, give patient instructions): Chest Pain (ED) Is patient prescribed a controlled substance at d/c from ED?: No Referrals: Artie Zhang DO [Primary Care Provider] - 1-2 days Time of Disposition: 03:06
[2023-07-07 01:53] VITALS: RESP 18; TEMP 98.5
[2023-07-07 02:02] LABS: Basophils % (A) 1 %; Eosinophils # (A) 0.1 k/uL (0-0.7); Eosinophils % (A) 3 %; HCT 44.2 % (39.0-53.0); HGB 15.7 gm/dL (13.0-17.5); Lymphocytes # (A) 2.2 k/uL (1.0-4.8); Lymphocytes % (A) 44 %; MCH 31.3 pg (25.0-35.0); MCHC 35.5 g/dL (31.0-37.0); Mean Platelet Volume 7.4; Monocytes # (A) 0.3 k/uL (0-1.0); Monocytes % (A) 5 %; Neutrophils # (A) 2.2 k/uL (1.3-7.7); Neutrophils % (A) 45 %; Platelet Count 228 k/uL (150-450); RBC 5.02 m/uL (4.30-5.90); RDW 12.5 % (11.5-15.5)
[2023-07-07 02:05] LABS: ALT 58 U/L (4-49); AST 34 U/L (17-59); African American GFR (CKD) >90 (>60 ml/min/1.73 sqM); Albumin 4.2 g/dL (3.5-5.0); Alcohol <10 mg/dL; Alkaline Phosphatase 88 U/L (38-126); Anion Gap 7 mmol/L; Blood Urea Nitrogen 15 mg/dL (9-20); Calcium 9.1 mg/dL (8.4-10.2); Carbon Dioxide 26 mmol/L (22-30); Chloride 107 mmol/L (98-107); Glucose 94 mg/dL (74-99); Lipase 136 U/L (23-300); Magnesium 1.9 mg/dL (1.6-2.3); Non-African American GFR(CKD) >90 (>60 ml/min/1.73 sqM); Potassium 3.8 mmol/L (3.5-5.1); Sodium 140 mmol/L (137-145); Total Bilirubin 0.4 mg/dL (0.2-1.3); Total Protein 6.9 g/dL (6.3-8.2)
[2023-07-07 02:35] LABS: INR 0.9 (<1.2); Partial Thromboplastin Time 22.2 sec (22.0-30.0); Prothrombin Time 9.9 sec (10.0-12.5)
[2023-07-07 03:16] VITALS: BP 144/106; PULSE 89
--- NOTE | 2023-07-07 03:34 | XR ---
EXAM: XR Chest, 2 Views CLINICAL HISTORY: ITS.REASON XR Reason: Chest Pain TECHNIQUE: Frontal and lateral views of the chest. COMPARISON: 05/30/2023 FINDINGS: Lungs: No consolidation or mass. Pleural space: No effusion. Heart: No cardiomegaly. Bones/joints: No acute findings. IMPRESSION: No acute cardiopulmonary process.
== END 2023-07-07 03:25 | disposition home or self-care (01) ==
LOC: EC 01:21
DX: R07.89 Other chest pain (principal); I10 Essential (primary) hypertension; Z86.59 Personal history of other mental and behavioral disorders; Z79.899 Other long term (current) drug therapy; Z87.891 Personal history of nicotine dependence; Z88.0 Allergy status to penicillin; Z88.6 Allergy status to analgesic agent; Z88.1 Allergy status to other antibiotic agents
CPT/HCPCS: 36415; 93005; 85379; 80053; 83690; 83735; 84484; 85025; 85610; 85730; 71046; 99285; 96360; G0480; 80320

== ENCOUNTER 2023-09-05 10:25 | Inpatient (IN) | payer OTHER ==
[2023-09-05] MEDS ORDERED: PNEUMONIA PROTOCOL UTILIZED 1 EACH MISC PO PRN (11:26)
[2023-09-05 11:42] LABS: Basophils % (A) 0 %; Eosinophils % (A) 1 %; HCT 41.4 % (39.0-53.0); HGB 14.3 gm/dL (13.0-17.5); Lymphocytes # (A) 0.4 k/uL (1.0-4.8); Lymphocytes % (A) 6 %; MCH 30.3 pg (25.0-35.0); MCHC 34.5 g/dL (31.0-37.0); MCV 87.9 fL (80.0-100.0); Mean Platelet Volume 8.4; Monocytes # (A) 0.2 k/uL (0-1.0); Monocytes % (A) 4 %; Neutrophils # (A) 5.6 k/uL (1.3-7.7); Neutrophils % (A) 89 %; Platelet Count 177 k/uL (150-450); RBC 4.71 m/uL (4.30-5.90); RDW 13.3 % (11.5-15.5); WBC 6.3 k/uL (3.8-10.6)
[2023-09-05] MEDS: AZITHROMYCIN 500 MG in SODIUM CHLORIDE 0.9% 250 ML IVPB STA (11:43)
[2023-09-05] MEDS: SODIUM CHLORIDE 0.9% 1,000 ML IV STA ×2 (11:44→13:40)
[2023-09-05 12:17] LABS: ALT 172 U/L (4-49); AST 95 U/L (17-59); African American GFR (CKD) >90 (>60 ml/min/1.73 sqM); Albumin 3.8 g/dL (3.5-5.0); Alkaline Phosphatase 91 U/L (38-126); Anion Gap 7 mmol/L; Blood Urea Nitrogen 15 mg/dL (9-20); Calcium 8.5 mg/dL (8.4-10.2); Carbon Dioxide 26 mmol/L (22-30); Chloride 106 mmol/L (98-107); Glucose 126 mg/dL (74-99); Magnesium 1.7 mg/dL (1.6-2.3); Non-African American GFR(CKD) >90 (>60 ml/min/1.73 sqM); Potassium 3.9 mmol/L (3.5-5.1); Sodium 139 mmol/L (137-145); Total Bilirubin 0.5 mg/dL (0.2-1.3); Total Protein 6.5 g/dL (6.3-8.2)
[2023-09-05] MEDS: IPRATROPIUM-ALBUTEROL 3 ML NEB INHALATION STA (12:36)
--- NOTE | 2023-09-05 12:38 | XR ---
EXAMINATION TYPE: XR chest 2V DATE OF EXAM: 09/05/2023 COMPARISON: 07/07/2023 INDICATION: Difficulty breathing short of breath TECHNIQUE: Frontal and lateral views of the chest are obtained. FINDINGS: The heart size is normal. The pulmonary vasculature is normal. The lungs are clear. IMPRESSION: 1. No acute pulmonary process.
[2023-09-05] MEDS ORDERED: NALOXONE 0.4 MG/ML 1 ML VIAL IV PRN (13:15)
[2023-09-05] MEDS ORDERED: ONDANSETRON 4 MG/2 ML VIAL IVP PRN (13:15)
[2023-09-05] MEDS ORDERED: ACETAMINOPHEN TAB 325 MG TAB PO PRN (13:15)
--- NOTE | 2023-09-05 13:20 | ED ---
General Adult HPI - General Chief complaint: Recheck/Abnormal Lab/Rx Stated complaint: Pneumonia Time Seen by Provider: 09/05/23 11:25 Source: patient, RN notes reviewed, old records reviewed Mode of arrival: ambulatory Limitations: no limitations - History of Present Illness Initial comments: Patient is a 52-year-old male with past medical history remarkable for hypertension who presents emergency department complaining of hypoxia as well as influenza infection. Went to urgent care where he was tested for flu and had a chest x-ray. They state that they saw a possible right-sided pneumonia there. Tested positive for flu B. Was sent here due to the hypoxia. Has been on antibiotics for multiple days. Denies any chest pain, abdominal pain, nausea, vomiting, diarrhea. No other acute complaints at this time. - Related Data Home Medications Medication Instructions Recorded Confirmed Buprenorphine HCl/Naloxone HCl 1 film SL BID 02/25/23 09/05/23 [Suboxone 8 mg-2 mg Sl Film] Gabapentin [Neurontin] 300 mg PO TID 02/25/23 09/05/23 lisinopriL 30 mg PO DAILY 02/25/23 09/05/23 Albuterol Inhaler [Ventolin Hfa 2 puff INHALATION RT-Q4H PRN 09/05/23 09/05/23 Inhaler] [id number] 3 tab PO BID 09/05/23 09/05/23 [Excedrin] Fluticasone Nasal [place] [Flonase 1 spray EA NOSTRIL DAILY PRN 09/05/23 09/05/23 Nasal [place]] amLODIPine [Norvasc] 5 mg PO DIRECTED 09/05/23 09/05/23 methylPREDNISolone Dose Pack See Taper PO DIRECTED 09/05/23 09/05/23 [Medrol Dose Pack] Allergies Allergy/AdvReac Type Severity Reaction Status Date / Time doxycycline Allergy Rash/Hives, Verified 09/05/23 13:50 swelling levofloxacin [From Levaquin] Allergy Rash/Hives, Verified 09/05/23 13:50 throat swelling Penicillins Allergy Rash/Hives, Verified 09/05/23 13:50 throat swelling Review of Systems ROS Statement: Those systems with pertinent positive or pertinent negative responses have been documented in the HPI. Review of Systems: CONST: Denies fever EYES: Denies blurry vision ENT: Endorses nasal congestion, cough C/V: Denies Chest pain RESP: Endorses shortness of breath GI: Denies abdominal pain : Denies dysuria SKIN: Denies rash. MSK: Denies joint pain. NEURO: Denies headache ROS Other: All systems not noted in ROS Statement are negative. Past Medical History Past Medical History: Hypertension, Osteoarthritis (OA) Additional Past Medical History / Comment(s): Restless Leg Syndrome. Hx ulcer , migraines, hx hypertension- was on rx but not currently, thought he had seizure last summer- was not seen, bursitis rt elbow-constantly draining,. hx of back injury-occ uses a cane History of Any Multi-Drug Resistant Organisms: None Reported Past Surgical History: Cholecystectomy, Hernia Repair, Orthopedic Surgery Additional Past Surgical History / Comment(s): ORIF rt wrist/hardware later removed, arthroscopy ky knees Past Anesthesia/Blood Transfusion Reactions: Previous Problems w/ Anesthesia, Motion Sickness Additional Past Anesthesia/Blood Transfusion Reaction / Comment(s): "Freaked out when woke up after gallbladder surgery, was trying to get out of bed." Past Psychological History: Anxiety Smoking Status: Current every day smoker, Vaper Past Alcohol Use History: Rare Past Drug Use History: None Reported - Past Family History Mother Family Medical History: No Reported History General Exam - General Exam Comments Initial Comments: General: Appears in no acute distress. HEAD: Normal with no signs of head trauma. EYES: PERRLA, EOMI, conjunctiva normal, no discharge. ENT: Hearing grossly intact, normal oropharynx. RESPIRATORY: Breath sounds bilaterally. Hypoxic on room air to 89-97. Improved on 2 L nasal cannula. C/V: Regular rate and rhythm. S1 and S2 auscultated, no edema, peripheral pulses 2+ and intact throughout ABD: Abd is soft, nontender, nondistended EXT: Normal range of motion, no obvious deformity SKIN: No rashes or lesions observed on exposed skin. NEURO: Alert and oriented x 4. Limitations: no limitations Course Vital Signs 09/05/23 09/05/23 09/05/23 10:36 11:01 11:02 Temperature 98.8 F Pulse Rate 97 82 Respiratory 18 18 18 Rate Blood Pressure 109/71 O2 Sat by Pulse 92 L 91 L Oximetry 09/05/23 09/05/23 09/05/23 11:08 11:50 12:08 Temperature 98.7 F Pulse Rate 83 81 80 Respiratory 18 18 18 Rate Blood Pressure 114/65 O2 Sat by Pulse 94 L 94 L 94 L Oximetry 09/05/23 09/05/23 09/05/23 12:36 12:48 14:02 Temperature 98.1 F Pulse Rate 80 80 90 Respiratory 18 Rate Blood Pressure 148/82 O2 Sat by Pulse 95 Oximetry 09/05/23 14:55 Temperature 98.1 F Pulse Rate 86 Respiratory 18 Rate Blood Pressure 150/85 O2 Sat by Pulse 94 L Oximetry Medical Decision Making - Medical Decision Making Was pt. sent in by a medical professional or institution (, LENNY, CERAMIC WORKER, urgent care, hospital, or assisted...) When possible be specific @ -Sent from urgent care for admission with failed outpatient management of pneumonia. Did you speak to anyone other than the patient for history (EMS, parent, family, police, friend...)? What history was obtained from this source @ -No Did you review nursing and triage notes (agree or disagree)? Why? @ -I reviewed and agree with nursing and triage notes Were old charts reviewed (outside hosp., previous admission, EMS record, old EKG, old radiological studies, urgent care reports/EKG's, assisted records)? Report findings @ -No old charts were reviewed Differential Diagnosis (chest pain, altered mental status, abdominal pain women, abdominal pain men, vaginal bleeding, weakness, fever, dyspnea, syncope, h eadache, dizziness, GI bleed, back pain, seizure, CVA, palpatations, mental health, musculoskeletal)? @ -COVID, flu, influenza, pneumonia. This list is not all inclusive. EKG interpreted by me (3pts min.). @ -As above X-rays interpreted by me (1pt min.). @ -Chest x-ray shows no obvious parvez pneumonia but possible development of right-sided pneumonia. CT interpreted by me (1pt min.). @ -None done U/S interpreted by me (1pt. min.). @ -None done What testing was considered but not performed or refused? (CT, X-rays, U/S, labs)? Why? @ -None What meds were considered but not given or refused? Why? @ -None Did you discuss the management of the patient with other professionals (professionals i.e. , PA, CERAMIC WORKER, lab, RT, psych nurse, social sciences research scientist, float builder, teacher, credit or loans officer, watch case polisher)? Give summary @ -Discussed with admitting physician, Dr. Pat accepted the admission. Was smoking cessation discussed for >3mins.? @ -No Was critical care preformed (if so, how long)? @ -Yes, 34 minutes. Were there social determinants of health that impacted care today? How? (Homelessness, low income, unemployed, alcoholism, drug addiction, transportation, low edu. Level, literacy, decrease access to med. care, senior care, rehab)? @ -No Was there de-escalation of care discussed even if they declined (Discuss DNR or withdrawal of care, Hospice)? DNR status @ -No What co-morbidities impacted this encounter? (DM, HTN, Smoking, COPD, CAD, Cancer, CVA, ARF, Chemo, Hep., AIDS, mental health diagnosis, sleep apnea, morbid obesity)? @ -None Was patient admitted / discharged? Hospital course, mention meds given and route, prescriptions, significant lab abnormalities, going to OR and other pertinent info. @ -Based on the patient's presentation and physical exam, presents emergency department complaining of upper respiratory infection with hypoxia and urgent care. Was sent here for admission. Vital signs remarkable for pulse ox of 89 to 90% on room air. This is abnormal for the patient. He has been on outpatient antibiotics with no improvement. Tested positive for influenza. Symptoms have been worse over the last 3 days. Patient will be admitted to the hospital. He was placed on 2 L nasal cannula which helped with the hypoxia. Pulmonary labs will be obtained as well as chest x-ray and viral swabs. Patient in agreement this plan. Chest x-ray shows possible development of right lobe pneumonia. Patient's laboratory studies unremarkable. Patient is positive for influenza B. EKG shows no signs of acute ischemia. Patient was empirically started on IV Rocephin and azithromycin for pneumonia. He was also started on Tamiflu. We will continue with oxygen as well as breathing treatments. Patient was in agreement this plan. I discussed the results with the patient. He was in agreement this plan. Patient will be admitted to the hospital at this time. Blood cultures obtained and sent. I spoke with the admitting physician, city call Dr. Pat of [facility] who accepted the admission. Undiagnosed new problem with uncertain prognosis? @ -No Drug Therapy requiring intensive monitoring for toxicity (Heparin, Nitro, Insulin, Cardizem)? @ -No Were any procedures done? @ -No Diagnosis/symptom? @ -Hypoxic respiratory failure secondary to influenza B infection and possible developing pneumonia Acute, or Chronic, or Acute on Chronic? @ -Acute Uncomplicated (without systemic symptoms) or Complicated (systemic symptoms)? @ -Complicated Side effects of treatment? @ -No Exacerbation, Progression, or Severe Exacerbation? @ -No Poses a threat to life or bodily function? How? (Chest pain, [place], [place], pneumonia, PE, COPD, DKA, ARF, appy, cholecystitis, CVA, Diverticulitis, Homicidal, Suicidal, threat to staff... and all critical care pts) @ -Yes - Lab Data Result diagrams: 09/05/23 11:29 09/05/23 11:29 Lab Results 09/05/23 09/05/23 09/05/23 Range/Units 11:29 11:29 11:29 WBC 6.3 (3.8-10.6) k/uL RBC 4.71 (4.30-5.90) m/uL Hgb 14.3 (13.0-17.5) gm/dL Hct 41.4 (39.0-53.0) % MCV 87.9 (80.0-100.0) fL MCH 30.3 (25.0-35.0) pg MCHC 34.5 (31.0-37.0) g/dL RDW 13.3 (11.5-15.5) % Plt Count 177 (150-450) k/uL MPV 8.4 Neutrophils % 89 % Lymphocytes % 6 % Monocytes % 4 % Eosinophils % 1 % Basophils % 0 % Neutrophils # 5.6 (1.3-7.7) k/uL Lymphocytes # 0.4 L (1.0-4.8) k/uL Monocytes # 0.2 (0-1.0) k/uL Eosinophils # 0.0 (0-0.7) k/uL Basophils # 0.0 (0-0.2) k/uL Sodium 139 (137-145) mmol/L Potassium 3.9 (3.5-5.1) mmol/L Chloride 106 (98-107) mmol/L Carbon Dioxide 26 (22-30) mmol/L Anion Gap 7 mmol/L BUN 15 (9-20) mg/dL Creatinine 0.68 (0.66-1.25) mg/dL Est GFR (CKD-EPI)AfAm >90 (>60 ml/min/1.73 sqM) Est GFR (CKD-EPI)NonAf >90 (>60 ml/min/1.73 sqM) Glucose 126 H (74-99) mg/dL Plasma Lactic Acid [place] 1.4 (0.7-2.0) mmol/L Calcium 8.5 (8.4-10.2) mg/dL Magnesium 1.7 (1.6-2.3) mg/dL Total Bilirubin 0.5 (0.2-1.3) mg/dL AST 95 H (17-59) U/L ALT 172 H (4-49) U/L Alkaline Phosphatase 91 (38-126) U/L Total Protein 6.5 (6.3-8.2) g/dL Albumin 3.8 (3.5-5.0) g/dL - EKG Data -: EKG Interpreted by Me EKG Comments: 12-lead Electrocardiogram Interpretation Note EKG was reviewed and interpreted by myself. 12-lead ECG performed at 1133 is interpreted by me as revealing normal sinus rhythm at a rate of 78 beats per minute. [place] is normal. MA interval is 154 ms, QRS duration is 97 ms, QTc is 395 ms.. There were no ST or T wave abnormalities to suggest myocardial ischemia or injury. R wave progression across the precordium was satisfactory. By my interpretation this EKG is non-diagnostic for acute ischemia. Disposition Clinical Impression: Hypoxia, Influenza B, Pneumonia Disposition: ADMITTED IP TO THIS HOSP Condition: Stable Time of Disposition: 13:15
[2023-09-05] MEDS: OSELTAMIVIR 75 MG CAP PO SCH (14:51)
[2023-09-05] MEDS: HEPARIN SODIUM,PORCINE 5,000 UNIT/ML 1 ML VIAL SQ SCH (16:56)
[2023-09-05] MEDS ORDERED: IPRATROPIUM-ALBUTEROL 3 ML NEB INHALATION PRN (17:02)
--- NOTE | 2023-09-05 17:03 | P.CNPUL ---
History of Present Illness Consult date: 09/05/23 Requesting physician: Rachelle Pat Reason for consult: dyspnea Chief complaint: Shortness of breath, muscle aches History of present illness: This is a 52-year-old male patient with a known history of hypertension, tobacco dependence, vaping and opioid abuse. He has a 1 week history of increasing shortness of breath cough congestion and was seen by his PCP and was initiated on doxycycline and a Medrol Dosepak. Not much improvement and he went to an urgent care this morning and was told he has influenza B and possible pneumonia and came to the emergency room. He is seen today in consultation on the regular medical floor. He is awake and alert in no acute distress. Chest x-ray reveals no acute pulmonary process. He is maintaining O2 saturation in the mid 90s on 2 L/min per nasal cannula. He is afebrile. Hemodynamically stable. White count 6.3. Hemoglobin 14.3. Platelets 177. Sodium 139. Potassium 3.9. BUN 15. Creatinine 0.68. Glucose 126. AST 95. ALT 172. Influenza B positive. He has been initiated on ceftriaxone and azithromycin. Started on Tamiflu. Normal s zeb at 75 MLS per hour. Continued on his Suboxone. Review of Systems REVIEW OF SYSTEMS: CONSTITUTIONAL: Positive for generalized body aches, denies any recent significant weight loss or weight gain. EYES: Denies change in vision. EARS, NOSE, MOUTH, THROAT: Denies headaches, denies sore throat. CARDIOVASCULAR: Denies chest pain, palpitations or syncopal episodes. RESPIRATORY: Positive for shortness of breath, cough, congestion no hemoptysis. GASTROINTESTINAL: Denies change in appetite, denies abdominal pain GENITOURINARY: Denies hematuria, denies infections. MUSKULOSKELETAL: Denies pain, denies swelling. INTEGUMENTARY: Denies rash, denies eczema. NEUROLOGICAL: Denies recent memory loss, no recent seizure activity. PSYCHIATRIC: Denies anxiety, denies depression. HEMATOLOGIC/LYMPHATIC: Denies anemia, denies enlarged lymph nodes. Past Medical History Past Medical History: Hypertension, Osteoarthritis (OA) Additional Past Medical History / Comment(s): Restless Leg Syndrome. Hx ulcer , migraines, hx hypertension, seizures, bursitis rt elbow/resolved. back injury, Basal cell CA on head. History of Any Multi-Drug Resistant Organisms: None Reported Past Surgical History: Cholecystectomy, Hernia Repair, Orthopedic Surgery Additional Past Surgical History / Comment(s): ORIF rt wrist/hardware later removed, arthroscopy ky knees, right elbow surgery/treated bursitis, Skin CA removal on head. Past Anesthesia/Blood Transfusion Reactions: Previous Problems w/ Anesthesia, Motion Sickness Additional Past Anesthesia/Blood Transfusion Reaction / Comment(s): "Freaked out when woke up after gallbladder surgery, was trying to get out of bed." Past Psychological History: Anxiety Smoking Status: Current every day smoker, Vaper Past Alcohol Use History: None Reported Past Drug Use History: None Reported - Past Family History Mother Family Medical History: No Reported History Medications and Allergies Home Medications Medication Instructions Recorded Confirmed Type Buprenorphine HCl/Naloxone HCl 1 film SL BID 02/25/23 09/05/23 History [Suboxone 8 mg-2 mg Sl Film] Gabapentin [Neurontin] 300 mg PO TID 02/25/23 09/05/23 History lisinopriL 30 mg PO DAILY 02/25/23 09/05/23 History Albuterol Inhaler [Ventolin Hfa 2 puff INHALATION RT-Q4H PRN 09/05/23 09/05/23 History Inhaler] [id number] 3 tab PO BID 09/05/23 09/05/23 History [Excedrin] Fluticasone Nasal [place] [Flonase 1 spray EA NOSTRIL DAILY PRN 09/05/23 09/05/23 History Nasal [place]] amLODIPine [Norvasc] 5 mg PO DIRECTED 09/05/23 09/05/23 History methylPREDNISolone Dose Pack See Taper PO DIRECTED 09/05/23 09/05/23 History [Medrol Dose Pack] Allergies Allergy/AdvReac Type Severity Reaction Status Date / Time doxycycline Allergy Rash/Hives, Verified 09/05/23 13:50 swelling levofloxacin [From Levaquin] Allergy Rash/Hives, Verified 09/05/23 13:50 throat swelling Penicillins Allergy Rash/Hives, Verified 09/05/23 13:50 throat swelling Physical Exam Vitals: Vital Signs Temp Pulse Pulse Resp BP BP Pulse Ox 09/05/23 15:52 98.4 F 81 19 126/71 93 L 09/05/23 14:55 98.1 F 86 18 150/85 94 L 09/05/23 14:02 98.1 F 90 18 148/82 95 09/05/23 12:48 80 09/05/23 12:36 80 09/05/23 12:08 80 18 94 L 09/05/23 11:50 98.7 F 81 18 114/65 94 L 09/05/23 11:08 83 18 94 L 09/05/23 11:02 82 18 91 L 09/05/23 11:01 18 09/05/23 10:36 98.8 F 97 18 109/71 92 L Intake and Output 09/05/23 09/05/23 09/05/23 06:59 14:59 22:59 Other: Weight 110.677 kg 110.677 kg GENERAL EXAM: Alert, pleasant 52-year-old male, on 2 L nasal cannula, fairly comfortable in no apparent distress. HEAD: Normocephalic. EYES: Normal reaction of pupils, equal size. NOSE: Clear with pink turbinates. THROAT: No erythema or exudates. NECK: No masses, no JVD. CHEST: No chest wall deformity. LUNGS: Equal air entry with no crackles, wheeze, rhonchi or dullness. CVS: S1 and S2 normal with no audible murmur, regular rhythm. ABDOMEN: No hepatosplenomegaly, normal bowel sounds, no guarding or rigidity. SPINE: No scoliosis or deformity SKIN: No rashes CENTRAL NERVOUS SYSTEM: No focal deficits, tone is normal in all 4 extremities. EXTREMITIES: There is no peripheral edema. No clubbing, no cyanosis. Peripheral pulses are intact. Results - Laboratory Findings CBC and BMP: 09/05/23 11:29 09/05/23 11:29 Abnormal lab findings: Abnormal Labs 09/05/23 09/05/23 09/05/23 11:29 11:29 13:47 Lymphocytes # 0.4 L Glucose 126 H AST 95 H ALT 172 H Influenza Type B (PCR) Detected A - Diagnostic Findings Chest x-ray: report reviewed (No acute pulmonary process) Assessment and Plan Assessment: Acute hypoxemic respiratory failure secondary to tracheobronchitis no evidence of pneumonia on chest x-ray. Procalcitonin pending Influenza B infection, initiated on Tamiflu History of opioid abuse, continued on Suboxone History of chronic tobacco dependence and vaping Hypertension Plan: The patient was seen and evaluated Chest x-ray, labs and medications reviewed Continue antibiotics for now Check a procalcitonin Continue Tamiflu Heparin for DVT prophylaxis Continue bronchodilators as needed Titrate down the FiO2 as tolerated Will continue to follow and make further recommendations based on his clinical status I have personally seen and examined the patient, performed the documentation and the assessment and plan as written. Number of minutes spent on the visit: 20.
[2023-09-05] MEDS: Buprenorphine Hcl/Naloxone Hcl [Suboxone 8 Mg-2 Mg Sl Film] 1 EACH Fil SUBLINGUAL SCH (21:23)
[2023-09-06] MEDS ORDERED: FLUTICASONE 50MCG/SPRAY NASAL 16GM EA NOSTRIL PRN (09:13)
--- NOTE | 2023-09-06 09:13 | P.HPIM ---
History of Present Illness H&P Date: 09/05/23 History of present illness; patient is a 52-year-old gentleman with past medical history significant for hypertension presents the ER for complaint of shortness of breath and cough. Patient said that he was all right 1 week back when he started noticing that he is getting short of breath, shortness of breath was present on exertion.. There was no complaint chest pain. No complaint of fever but patient was complaining of chills. Patient was complaining of cough. Patient went to see his PCP and they told him he had bronchitis. Patient was given doxycycline for home. Patient stated that he did not feel well and continued to feel worse. Today he went to the urgent care, he was checked there and was told he had influenza from where he was sent to the ER Initial lab work done in the ER showed WBCs 0.3, hemoglobin 14.3, platelet count 137, sodium 139, potassium 3.9 BUN 15, creatinine 0.68, glucose 126, AST 95, ALT 172 Chest x-ray done in the ER showed no acute pulmonary process Patient admitted to internal medicine service REVIEW OF SYSTEMS: CONSTITUTIONAL: As mentioned above HEENT: No recent visual problems or hearing problems. Denied any sore throat. CARDIOVASCULAR: As mentioned above PULMONARY: As mentioned above GASTROINTESTINAL: No diarrhea, no nausea, no vomiting, no abdominal pain. NEUROLOGICAL: No headaches, no weakness, no numbness. HEMATOLOGICAL: Denies any bleeding or petechiae. GENITOURINARY: Denies any burning micturition, frequency, or urgency. MUSCULOSKELETAL/RHEUMATOLOGICAL: Denies any joint pain, swelling, or any muscle pain. ENDOCRINE: Denies any polyuria or polydipsia. The rest of the 14-point review of systems is negative. PHYSICAL EXAMINATION: GENERAL: The patient is alert and oriented x3, not in any acute distress. Well developed, well nourished. HEENT: Pupils are round and equally reacting to light. EOMI. No scleral icterus. No conjunctival pallor. Normocephalic, atraumatic. No pharyngeal erythema. No thyromegaly. CARDIOVASCULAR: S1 and S2 present. No murmurs, rubs, or gallops. PULMONARY: Coarse breath sound bilaterally,, no wheeze ABDOMEN: Soft, nontender, nondistended, normoactive bowel sounds. No palpable organomegaly. MUSCULOSKELETAL: No joint swelling or deformity. EXTREMITIES: No cyanosis, clubbing, or pedal edema. NEUROLOGICAL: Gross neurological examination did not reveal any focal deficits. SKIN: No rashes. Assessment and plan Acute hypoxic respiratory failure Influenza B infection Acute tracheobronchitis Hypertension Monitor vital signs Monitor CBC Monitor CMP Follow-up on blood cultures Continue breathing treatments Patient started on Tamiflu Patient started on Rocephin azithromycin Resume home med Consult pulmonary Labs and medication were reviewed.. Continue same treatment. Continue with symptomatic treatment. Resume home medication. Monitor labs and vitals. DVT and GI prophylaxis. Further recommendations as per clinical course of the patient Dictation was produced using [employer] dictation software. please excuse any grammatical, word or spelling errors. Past Medical History Past Medical History: Hypertension, Osteoarthritis (OA) Additional Past Medical History / Comment(s): Restless Leg Syndrome. Hx ulcer , migraines, hx hypertension- was on rx but not currently, thought he had seizure last summer- was not seen, bursitis rt elbow-constantly draining,. hx of back injury-occ uses a cane History of Any Multi-Drug Resistant Organisms: None Reported Past Surgical History: Cholecystectomy, Hernia Repair, Orthopedic Surgery Additional Past Surgical History / Comment(s): ORIF rt wrist/hardware later removed, arthroscopy [place] knees Past Anesthesia/Blood Transfusion Reactions: Previous Problems w/ Anesthesia, Motion Sickness Additional Past Anesthesia/Blood Transfusion Reaction / Comment(s): "Freaked out when woke up after gallbladder surgery, was trying to get out of bed." Past Psychological History: Anxiety Smoking Status: Current every day smoker, Vaper Past Alcohol Use History: Rare Past Drug Use History: None Reported - Past Family History Mother Family Medical History: No Reported History Medications and Allergies Home Medications Medication Instructions Recorded Confirmed Type Buprenorphine HCl/Naloxone HCl 1 film SL BID 02/25/23 09/05/23 History [Suboxone 8 mg-2 mg Sl Film] Gabapentin [Neurontin] 300 mg PO TID 02/25/23 09/05/23 History lisinopriL 30 mg PO DAILY 02/25/23 09/05/23 History Albuterol Inhaler [Ventolin Hfa 2 puff INHALATION RT-Q4H PRN 09/05/23 09/05/23 History Inhaler] [id number] 3 tab PO BID 09/05/23 09/05/23 History [Excedrin] Fluticasone Nasal [place] [Flonase 1 spray EA NOSTRIL DAILY PRN 09/05/23 09/05/23 History Nasal [place]] amLODIPine [Norvasc] 5 mg PO DIRECTED 09/05/23 09/05/23 History methylPREDNISolone Dose Pack See Taper PO DIRECTED 09/05/23 09/05/23 History [Medrol Dose Pack] Allergies Allergy/AdvReac Type Severity Reaction Status Date / Time doxycycline Allergy Rash/Hives, Verified 09/05/23 13:50 swelling levofloxacin [From Levaquin] Allergy Rash/Hives, Verified 09/05/23 13:50 throat swelling Penicillins Allergy Rash/Hives, Verified 09/05/23 13:50 throat swelling Physical Exam Vitals: Vital Signs Temp Pulse Resp BP Pulse Ox 09/05/23 12:48 80 09/05/23 12:36 80 09/05/23 12:08 80 18 94 L 09/05/23 11:50 98.7 F 81 18 114/65 94 L 09/05/23 11:08 83 18 94 L 09/05/23 11:02 82 18 91 L 09/05/23 11:01 18 09/05/23 10:36 98.8 F 97 18 109/71 92 L Intake and Output 09/04/23 09/05/23 09/05/23 22:59 06:59 14:59 Other: Weight 110.677 kg Results CBC & Chem 7: 09/05/23 11:29 09/05/23 11:29 Labs: Abnormal Lab Results - Last 24 Hours (Table) 09/05/23 09/05/23 Range/Units 11:29 11:29 Lymphocytes # 0.4 L (1.0-4.8) k/uL Glucose 126 H (74-99) mg/dL AST 95 H (17-59) U/L ALT 172 H (4-49) U/L
[2023-09-06] MEDS: AZITHROMYCIN 500 MG TAB PO SCH (09:35)
[2023-09-06] MEDS: lisinopriL 10 MG TAB PO SCH (09:35)
[2023-09-06] MEDS: GABAPENTIN 300 MG CAP PO SCH (09:35)
[2023-09-06] MEDS: amLODIPine 5 MG TAB PO SCH (09:35)
[2023-09-06 11:09] LABS: Basophils # (A) 0.02 X 10*3/uL (0.00-0.10); Basophils % (A) 0.6 %; Eosinophils # (A) 0.07 X 10*3/uL (0.04-0.35); Eosinophils % (A) 1.9 %; HCT 40.1 % (39.6-50.0); HGB 13.2 g/dL (13.0-17.0); Lymphocytes # (A) 1.39 X 10*3/uL (0.90-5.00); Lymphocytes % (A) 38.7 %; MCH 30.1 pg (27.0-32.0); MCHC 32.9 g/dL (32.0-37.0); MCV 91.6 FL (80.0-97.0); Mean Platelet Volume 10.5 FL (9.5-12.2); Monocytes # (A) 0.24 X 10*3/uL (0.20-1.00); Monocytes % (A) 6.7 %; NRBC Per 100 WBC 0 X 10*3/uL (0.00-0.01); Neutrophils # (A) 1.86 X 10*3/uL (1.80-7.70); Neutrophils % (A) 51.8 %; Platelet Count 150 X 10*3/uL (140-440); RBC 4.38 X 10*6/uL (4.40-5.60); RDW 12.8 % (11.5-14.5); WBC 3.59 X 10*3/uL (4.50-10.00)
--- NOTE | 2023-09-06 11:33 | XR ---
EXAMINATION TYPE: XR chest 1V portable DATE OF EXAM: 09/06/2023 COMPARISON: 09/05/2023 INDICATION: Pneumonia influenza B TECHNIQUE: Single frontal view of the chest is obtained. FINDINGS: The heart size is normal. The pulmonary vasculature is normal. The lungs are clear. IMPRESSION: 1. No acute pulmonary process.
[2023-09-06 11:45] LABS: BUN/Creat Ratio 14.29 Ratio (12.00-20.00); Calcium 8.5 mg/dL (8.7-10.3); Carbon Dioxide 29.1 mmol/L (21.6-31.8); Chloride 104 mmol/L (96-109); Glucose 93 mg/dL (70-110); Sodium 143 mmol/L (135-145)
--- NOTE | 2023-09-06 12:55 | P.PN ---
Subjective Progress Note Date: 09/06/23 patient is a 52-year-old gentleman with past medical history significant for hypertension presents the ER for complaint of shortness of breath and cough. Patient said that he was all right 1 week back when he started noticing that he is getting short of breath, shortness of breath was present on exertion.. There was no complaint chest pain. No complaint of fever but patient was complaining of chills. Patient was complaining of cough. Patient went to see his PCP and they told him he had bronchitis. Patient was given doxycycline for home. Patient stated that he did not feel well and continued to feel worse. Today he went to the urgent care, he was checked there and was told he had influenza from where he was sent to the ER Initial lab work done in the ER showed WBCs 0.3, hemoglobin 14.3, platelet count 137, sodium 139, potassium 3.9 BUN 15, creatinine 0.68, glucose 126, AST 95, ALT 172 Chest x-ray done in the ER showed no acute pulmonary process Patient admitted to internal medicine service 09/05. Patient seen and examined. States breathing has improved. Blood work showed WBC 3.59, hemoglobin 13.2, platelet count 150, sodium 143, potassium 4, BUN 10, creatinine 0.7, REVIEW OF SYSTEMS: CONSTITUTIONAL: No fever, no malaise,. CARDIOVASCULAR: No chest pain, no palpitations, no syncope. PULMONARY: No shortness of breath, no cough, GASTROINTESTINAL: No diarrhea, no nausea, no vomiting, no abdominal pain. NEUROLOGICAL: No headaches, no weakness, PHYSICAL EXAMINATION: GENERAL: The patient is alert and oriented x3, not in any acute distress. Well developed, well nourished. HEENT: Pupils are round and equally reacting to light. EOMI. No scleral icterus. No conjunctival pallor. Normocephalic, atraumatic. No pharyngeal erythema. No thyromegaly. CARDIOVASCULAR: S1 and S2 present. No murmurs, rubs, or gallops. PULMONARY: Chest is clear to auscultation, no wheezing or crackles. ABDOMEN: Soft, nontender, nondistended, normoactive bowel sounds. No palpable organomegaly. MUSCULOSKELETAL: No joint swelling or deformity. EXTREMITIES: No cyanosis, clubbing, or pedal edema. NEUROLOGICAL: Gross neurological examination did not reveal any focal deficits. SKIN: No rashes. Assessment and plan Acute hypoxic respiratory failure Influenza B infection Acute tracheobronchitis Hypertension Monitor vital signs Monitor CBC Monitor CMP Follow-up on blood cultures Continue breathing treatments Continue Tamiflu Continue Rocephin azithromycin Continue lisinopril and amlodipine Pulmonology following Labs and medication were reviewed.. Continue same treatment. Continue with symptomatic treatment. Resume home medication. Monitor labs and vitals. DVT and GI prophylaxis. Further recommendations as per clinical course of the patient Dictation was produced using [employer] dictation software. please excuse any grammatical, word or spelling errors. Objective - Vital Signs Vital signs: Vital Signs Temp 98.6 F 09/06/23 07:27 Pulse 67 09/06/23 07:27 Resp 18 09/06/23 07:27 BP 137/93 09/06/23 07:27 Pulse Ox 92 L 09/06/23 07:27 FiO2 Intake & Output 09/05/23 09/06/23 09/06/23 18:59 06:59 18:59 Intake Total 250 Balance 250 Weight 110.677 kg Intake: Oral 250 Other: # Voids 4 2 - Labs CBC & Chem 7: 09/06/23 07:12 09/06/23 07:12 Labs: Abnormal Lab Results - Last 24 Hours (Table) 09/05/23 09/05/23 09/05/23 Range/Units 11:29 11:29 13:47 Lymphocytes # 0.4 L (1.0-4.8) k/uL Glucose 126 H (74-99) mg/dL AST 95 H (17-59) U/L ALT 172 H (4-49) U/L Influenza Type B (PCR) Detected A (Not Detectd) Microbiology - Last 24 Hours (Table) 09/05/23 12:47 Gram Stain - Preliminary Sputum
[2023-09-06 14:06] VITALS: BP 139/86; PULSE 66; RESP 17; TEMP 97.9
--- NOTE | 2023-09-06 15:05 | P.PN ---
Subjective Progress Note Date: 09/06/23 This is a 52-year-old male patient with a known history of hypertension, tobacco dependence, vaping and opioid abuse. He has a 1 week history of increasing shortness of breath cough congestion and was seen by his PCP and was initiated on doxycycline and a Medrol Dosepak. Not much improvement and he went to an urgent care this morning and was told he has influenza B and possible pneumonia and came to the emergency room. He is seen today in consultation on the regular medical floor. He is awake and alert in no acute distress. Chest x-ray reveals no acute pulmonary process. He is maintaining O2 saturation in the mid 90s on 2 L/min per nasal cannula. He is afebrile. Hemodynamically stable. White count 6.3. Hemoglobin 14.3. Platelets 177. Sodium 139. Potassium 3.9. BUN 15. Creatinine 0.68. Glucose 126. AST 95. ALT 172. Influenza B positive. He has been initiated on ceftriaxone and azithromycin. Started on Tamiflu. Normal saline at 75 MLS per hour. Continued on his Suboxone. The patient is seen today September 06, 2023 in follow-up on the regular medical floor. He is currently resting comfortably in bed. Awake and alert in no acute distress. Feeling quite a bit better today compared to yesterday. He is maintaining O2 saturations in the 90s on room air. His procalcitonin was negative at 0.09. Follow-up chest x-ray reveals no acute process. Sputum culture reveals no growth thus far. White count 3.5. Hemoglobin 13.2. Platelets 150. Sodium 143. Potassium 4.0. Bicarb 29. BUN 10. Creatinine 0.7. Glucose 93. He is continued on ceftriaxone and azithromycin. Continued on bronchodilators. Continued on Tamiflu. Objective - Vital Signs Vital signs: Vital Signs Temp 97.9 F 09/06/23 13:36 Pulse 66 09/06/23 13:36 Resp 17 09/06/23 13:36 BP 139/86 09/06/23 13:36 Pulse Ox 94 L 09/06/23 13:36 FiO2 Intake & Output 09/05/23 09/06/23 09/06/23 18:59 06:59 18:59 Intake Total 250 Balance 250 Weight 110.677 kg Intake: Oral 250 Other: Voiding Method Toilet # Voids 4 2 - Exam GENERAL EXAM: Alert, 52-year-old male, sitting comfortably in bed, on room air, comfortable in no apparent distress. HEAD: Normocephalic. EYES: Normal reaction of pupils, equal size. NOSE: Clear with pink turbinates. THROAT: No erythema or exudates. NECK: No masses, no JVD. CHEST: No chest wall deformity. LUNGS: Equal air entry with no crackles, wheeze, rhonchi or dullness. CVS: S1 and S2 normal with no audible murmur, regular rhythm. ABDOMEN: No hepatosplenomegaly, normal bowel sounds, no guarding or rigidity. SPINE: No scoliosis or deformity SKIN: No rashes CENTRAL NERVOUS SYSTEM: No focal deficits, tone is normal in all 4 extremities. EXTREMITIES: There is no peripheral edema. No clubbing, no cyanosis. Peripheral pulses are intact. - Labs CBC & Chem 7: 09/06/23 07:12 09/06/23 07:12 Labs: Abnormal Lab Results - Last 24 Hours (Table) 09/06/23 09/06/23 Range/Units 07:12 07:12 WBC 3.59 L (4.50-10.00) X 10*3/uL RBC 4.38 L (4.40-5.60) X 10*6/uL Calcium 8.5 L (8.7-10.3) mg/dL Microbiology - Last 24 Hours (Table) 09/05/23 12:47 Gram Stain - Preliminary Sputum Sputum Culture - Preliminary Assessment and Plan Assessment: Acute hypoxemic respiratory failure secondary to tracheobronchitis no evidence of pneumonia on chest x-ray. Procalcitonin pending Influenza B infection, initiated on Tamiflu History of opioid abuse, continued on Suboxone History of chronic tobacco dependence and vaping Hypertension Plan: The patient was seen and evaluated Chest x-ray, labs and medications reviewed No acute pulmonary process Procalcitonin within normal limits Antibiotics discontinued Continue Tamiflu Cleared for discharge from the pulmonary standpoint I have personally seen and examined the patient, performed the documentation and the assessment and plan as written. Number of minutes spent on the visit: 10.
[2023-09-06] MEDS ORDERED: ASPIRIN-ACET-CAFF 250-250-65MG 1 EACH TAB PO SCH (21:00)
== END 2023-09-06 14:10 | disposition left against medical advice (07) | DRG 113 ==
LOC: EC 10:25 → 4SSUR 13:20
PROVIDERS: ADMIT Internal Medicine; ATTEND Internal Medicine
DX: J10.1 Influenza due to other identified influenza virus with other respiratory manifestations (principal); J20.9 Acute bronchitis, unspecified; F11.10 Opioid abuse, uncomplicated; Z71.6 Tobacco abuse counseling; F17.290 Nicotine dependence, other tobacco product, uncomplicated; Z28.310 Unvaccinated for COVID-19; Z28.21 Immunization not carried out because of patient refusal; R56.9 Unspecified convulsions; I10 Essential (primary) hypertension; J96.01 Acute respiratory failure with hypoxia; G43.909 Migraine, unspecified, not intractable, without status migrainosus; Z88.0 Allergy status to penicillin; Z88.8 Allergy status to other drugs, medicaments and biological substances; G25.81 Restless legs syndrome; M70.31 Other bursitis of elbow, right elbow; F41.9 Anxiety disorder, unspecified; Z79.82 Long term (current) use of aspirin; Z79.899 Other long term (current) drug therapy; M19.90 Unspecified osteoarthritis, unspecified site; Z87.828 Personal history of other (healed) physical injury and trauma; Z85.828 Personal history of other malignant neoplasm of skin
CPT/HCPCS: 36415; 71045; 71046; 80048; 80053; 83605; 83735; 84145; 85025; 87040; 87070; 87205; 87449; 87636; 93005; 94640; 96361; 96365; 96366; 96368; 99291

== ENCOUNTER 2024-01-05 09:20 | Emergency (ER) | payer OTHER ==
[2024-01-05 09:39] VITALS: RESP 18; TEMP 97.8
--- NOTE | 2024-01-05 09:52 | ED ---
ENT HPI - General Chief complaint: ENT Stated complaint: Ear Pain Time Seen by Provider: 01/05/24 09:39 Source: patient, RN notes reviewed Mode of arrival: ambulatory Limitations: no limitations - History of Present Illness Initial comments: This is a 53-year-old male who presents to the emergency department for left ear pain. States that it started 2 days ago. Denies any fevers, coughing, congestion, or other URI symptoms. Denies any drainage or difficulty hearing from the ear. He does have tenderness to the touch as well. MD complaint: ear pain - Related Data Home Medications Medication Instructions Recorded Confirmed Buprenorphine HCl/Naloxone HCl 1 film SL BID 02/25/23 09/05/23 [Suboxone 8 mg-2 mg Sl Film] Gabapentin [Neurontin] 300 mg PO TID 02/25/23 09/05/23 lisinopriL 30 mg PO DAILY 02/25/23 09/05/23 Albuterol Inhaler [Ventolin Hfa 2 puff INHALATION RT-Q4H PRN 09/05/23 09/05/23 Inhaler] Kvisiaf-Hxyb-Yfcl [id number] 3 tab PO BID 09/05/23 09/05/23 [Excedrin] Fluticasone Nasal [place] [Flonase 1 spray EA NOSTRIL DAILY PRN 09/05/23 09/05/23 Nasal [place]] amLODIPine [Norvasc] 5 mg PO DIRECTED 09/05/23 09/05/23 methylPREDNISolone Dose Pack See Taper PO DIRECTED 09/05/23 09/05/23 [Medrol Dose Pack] Previous Rx's Medication Instructions Recorded Cefdinir [Omnicef] 600 mg PO DAILY 10 Days #20 capsule 01/05/24 Sgqajdoj-Acfapklbv-Ck Otic 4 drops LEFT EAR QID 10 Days #10 ml 01/05/24 [Cortisporin Otic Soln] predniSONE 50 mg PO DAILY 5 Days #5 tab 01/05/24 Allergies Allergy/AdvReac Type Severity Reaction Status Date / Time doxycycline Allergy Rash/Hives, Verified 01/05/24 09:39 swelling levofloxacin [From Levaquin] Allergy Rash/Hives, Verified 01/05/24 09:39 throat swelling Penicillins Allergy Rash/Hives, Verified 01/05/24 09:39 throat swelling Review of Systems ROS Statement: Those systems with pertinent positive or pertinent negative responses have been documented in the HPI. ROS Other: All systems not noted in ROS Statement are negative. Past Medical History Past Medical History: Hypertension, Osteoarthritis (OA) Additional Past Medical History / Comment(s): Restless Leg Syndrome. Hx ulcer , migraines, hx hypertension- was on rx but not currently, thought he had seizure last summer- was not seen, bursitis rt elbow-constantly draining,. hx of back injury-occ uses a cane History of Any Multi-Drug Resistant Organisms: None Reported Past Surgical History: Cholecystectomy, Hernia Repair, Orthopedic Surgery Additional Past Surgical History / Comment(s): ORIF rt wrist/hardware later removed, arthroscopy ky knees Past Anesthesia/Blood Transfusion Reactions: Previous Problems w/ Anesthesia, Motion Sickness Additional Past Anesthesia/Blood Transfusion Reaction / Comment(s): "Freaked out when woke up after gallbladder surgery, was trying to get out of bed." Past Psychological History: Anxiety Smoking Status: Current every day smoker, Vaper Past Alcohol Use History: Rare Past Drug Use History: None Reported - Past Family History Mother Family Medical History: No Reported History General Exam Limitations: no limitations General appearance: alert, in no apparent distress Head exam: Present: atraumatic, normocephalic, normal inspection ENT exam: Present: other (Left TM cerumen impaction, however the TM does appear to be erythematous with erythema in the canal as well. There is also tenderness to palpation of the pinna and tragus.) Respiratory exam: Present: normal lung sounds bilaterally. Absent: respiratory distress, wheezes, rales, rhonchi, stridor Cardiovascular Exam: Present: regular rate, normal rhythm, normal heart sounds. Absent: systolic murmur, diastolic murmur, rubs, gallop, clicks Neurological exam: Present: alert, oriented X3, CN II-XII intact Psychiatric exam: Present: normal affect, normal mood Skin exam: Present: warm, dry, intact, normal color. Absent: rash Course Vital Signs 01/05/24 09:36 Temperature 97.8 F Pulse Rate 74 Respiratory 18 Rate Blood Pressure 148/95 O2 Sat by Pulse 97 Oximetry Medical Decision Making - Medical Decision Making This is a 53 year old male who presents to the emergency department for ear pain. Was pt. sent in by a medical professional or institution? @ -No Did you speak to anyone other than the patient for history? @ -No Did you review nursing and triage notes? @ -Yes, and I agree, it is accurate with regards to the patient's symptoms. Were old charts reviewed? @ -No Differential Diagnosis? @ -Differential Ear Pain: Otitis media, otitis externa, eustachian tube dysfunction, allergic rhinitis, barotrauma, bullous myringitis, this is not meant to be an all-inclusive list. EKG interpreted by me (3pts min.)? @ -Not obtained X-rays interpreted by me (1pt min.)? @ -Not obtained CT interpreted by me (1pt min.)? @ -Not obtained U/S interpreted by me (1pt. min.)? @ -Not obtained What testing was considered but not performed? (CT, X-rays, U/S, labs)? Why? @ -None What meds were considered but not given? Why? @ -None Did you discuss the management of the patient with other professionals? @ -No Did you reconcile home meds? @ -No Was smoking cessation discussed for >3mins.? @ -No Was critical care preformed (if so, how long)? @ -No Were there social determinants of health that impacted care today? How? (Homelessness, low income, unemployed, alcoholism, drug addiction, transportation, low edu. Level, literacy, decrease access to med. care, longterm, rehab)? @ -No Was there de-escalation of care discussed even if they declined? (Discuss DNR or withdrawal of care, Hospice)? @ -No What co-morbidities impacted this encounter? (DM, HTN, Smoking, COPD, CAD, Cancer, CVA, Hep., AIDS, mental health diagnosis, sleep apnea, morbid obesity)? @ -None Was patient admitted / discharged? @ -Discharged. Physical examination has a cerumen impaction in the left ear somewhat limiting exam. However, he does appear to have erythema of the left TM and canal. Will treat patient for otitis media and externa. Prescription for cefdinir and polymyxin drops provided with dosing instructions reviewed. Advised follow-up with his primary care provider. Case discussed with ED attending Dr. Charles. Return precautions reviewed in depth, the patient is instructed to return to the emergency department with any new, worsening, or concerning symptoms. Patient ve rbalized understanding. Undiagnosed new problem with uncertain prognosis? @ -None Drug Therapy requiring intensive monitoring for toxicity (Heparin, Nitro, Insul in, Cardizem)? @ -None Were any procedures done? @ -None Diagnosis/symptom? @ -Otitis media, otitis externa Acute, or Chronic, or Acute on Chronic? @ -Acute Uncomplicated (without systemic symptoms) or Complicated (systemic symptoms)? @ -Uncomplicated Side effects of treatment? @ -None Exacerbation, Progression, or Severe Exacerbation] @ -Not applicable Poses a threat to life or bodily function? @ -No Disposition Clinical Impression: Otitis media, Otitis externa Disposition: HOME SELF-CARE Instructions (If sedation given, give patient instructions): Swimmer's Ear (ED), Ear Infection (ED), Earache (ED) Additional Instructions: Return to the emergency department with any new, worsening, or concerning symptoms. Take the antibiotic as prescribed for 10 days. Apply the eardrops as 4 drops to the left ear 4 times daily for 10 days. Take the prednisone daily for 5 days. Follow up with your primary care provider in 1-2 days. Prescriptions: Plryamkw-Twbohzbmw-Bb Otic [Cortisporin Otic Soln] 4 drops LEFT EAR QID 10 Days #10 ml Cefdinir [Omnicef] 600 mg PO DAILY 10 Days #20 capsule predniSONE 50 mg PO DAILY 5 Days #5 tab Is patient prescribed a controlled substance at d/c from ED?: No Referrals: Artie Zhang DO [Primary Care Provider] - 1-2 days Time of Disposition: 09:53
[2024-01-05] MEDS: KETOROLAC 15 MG/ML 1 ML VIAL IM STA (12:42)
[2024-01-05 12:47] VITALS: BP 143/102; PULSE 73
== END 2024-01-05 10:21 | disposition home or self-care (01) ==
LOC: EC 09:20
DX: H66.92 Otitis media, unspecified, left ear (principal); H60.92 Unspecified otitis externa, left ear; F17.290 Nicotine dependence, other tobacco product, uncomplicated; Z88.0 Allergy status to penicillin; Z88.1 Allergy status to other antibiotic agents; Z88.8 Allergy status to other drugs, medicaments and biological substances
CPT/HCPCS: 99282; 96372; J1885

== ENCOUNTER 2024-08-10 20:26 | Inpatient (IN) | payer MEDICAID, OTHER ==
--- NOTE | 2024-08-10 21:18 | ED ---
General Adult HPI - General Chief complaint: Psychiatric Symptoms Stated complaint: Petitioned Time Seen by Provider: 08/10/24 20:29 Source: patient, RN notes reviewed, old records reviewed Mode of arrival: ambulatory - History of Present Illness Initial comments: 53-year-old male presenting for mental health evaluation. Patient had been brought in by local law enforcement and has been petitioned for psychiatric evaluation with concern for suicidal thoughts and suicide attempt. He admits to Cutting his left wrist which is superficial. He states he took a handful of pills several days ago. He did not make direct suicidal statements but there is concern by family at as well as law enforcement. - Related Data Home Medications Medication Instructions Recorded Confirmed Gabapentin [Neurontin] 300 mg PO TID 02/25/23 07/07/24 lisinopriL 30 mg PO DAILY 02/25/23 07/07/24 Previous Rx's Medication Instructions Recorded Buprenorphine HCl/Naloxone HCl 1 film SL BID 2 Days #4 film 07/16/24 [Suboxone 8 mg-2 mg Sl Film] Gabapentin [Neurontin] 300 mg PO TID 30 Days #0 cap 07/16/24 Mirtazapine [Remeron] 7.5 mg PO HS 30 Days #15 tab 07/16/24 Nicotine 14Mg/24Hr Patch [Habitrol] 1 patch TRANSDERM DAILY patch 07/16/24 Nicotine Gum (Polacrilex) 2 mg BUCCAL Q4HR PRN pieceofgum 07/16/24 [Nicorette] Sertraline [Zoloft] 100 mg PO DAILY 30 Days #30 tab 07/16/24 traZODone HCL [Desyrel] 100 mg PO HS 30 Days #30 tab 07/16/24 Allergies Allergy/AdvReac Type Severity Reaction Status Date / Time doxycycline Allergy Rash/Hives, Verified 08/10/24 20:51 swelling levofloxacin [From Levaquin] Allergy Rash/Hives, Verified 08/10/24 20:51 throat swelling Penicillins Allergy Rash/Hives, Verified 08/10/24 20:51 throat swelling Review of Systems ROS Statement: Those systems with pertinent positive or pertinent negative responses have been documented in the HPI. ROS Other: All systems not noted in ROS Statement are negative. Past Medical History Past Medical History: Hypertension, Neurologic Disorder, Osteoarthritis (OA) Additional Past Medical History / Comment(s): Restless Leg Syndrome. Hx ulcer , migraines, hx hypertension, thought he had seizure last summer- was not seen, bursitis rt elbow,. 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 History of Any Multi-Drug Resistant Organisms: None Reported Past Surgical History: Cholecystectomy, Hernia Repair, Orthopedic Surgery Additional Past Surgical History / Comment(s): ORIF rt wrist/hardware later removed, arthroscopy ky knees, Skin CA removal right top of head. Past Anesthesia/Blood Transfusion Reactions: Previous Problems w/ Anesthesia, Motion Sickness Additional Past Anesthesia/Blood Transfusion Reaction / Comment(s): "Freaked out when woke up after gallbladder surgery, was trying to get out of bed." Past Psychological History: Anxiety, Depression Smoking Status: Current every day smoker, Vaper Past Alcohol Use History: Rare - Past Family History Mother Family Medical History: No Reported History General Exam General appearance: alert, in no apparent distress Head exam: Present: atraumatic Eye exam: Present: normal appearance, PERRL ENT exam: Present: normal exam Neck exam: Present: normal inspection Respiratory exam: Present: normal lung sounds bilaterally. Absent: respiratory distress, wheezes Cardiovascular Exam: Present: regular rate, normal rhythm GI/Abdominal exam: Present: soft. Absent: distended, tenderness Extremities exam: Present: other (Superficial laceration left wrist) Neurological exam: Present: alert, oriented X3, CN II-XII intact. Absent: motor sensory deficit Psychiatric exam: Present: depressed, suicidal ideation Skin exam: Present: warm, dry Course Vital Signs 08/10/24 20:47 Temperature 99.0 F Pulse Rate 114 H Respiratory 18 Rate Blood Pressure 162/112 O2 Sat by Pulse 100 Oximetry - Reevaluation(s) Reevaluation #1: 08/10/24 21:14 Patient medically cleared for EPS Medical Decision Making - Medical Decision Making Was pt. sent in by a medical professional or institution (, PA, FASHION CONSULTANT, urgent care, hospital, or intermediate...) When possible be specific @ -No Did you speak to anyone other than the patient for history (EMS, parent, family, police, friend...)? What history was obtained from this source @ -No Did you review nursing and triage notes (agree or disagree)? Why? @ -I reviewed and agree with nursing and triage notes Were old charts reviewed (outside hosp., previous admission, EMS record, old EKG, old radiological studies, urgent care reports/EKG's, intermediate records)? Report findings @ -No old charts were reviewed Differential Mental Health Depression, anxiety, bipolar, psychosis, schizophrenia, borderline personality, situational depression, adjustment disorder, behavioral disorder, brain tumor, malingering, substance abuse, encephalopathy, medication reaction, dementia, hypothyroidism, degenerative neurologic disorder, lupus.... This is not meant to be all-inclusive list EKG interpreted by me (3pts min.). @ -As above X-rays interpreted by me (1pt min.). @ -None done CT interpreted by me (1pt min.). @ -None done U/S interpreted by me (1pt. min.). @ -None done What testing was considered but not performed or refused? (CT, X-rays, U/S, labs)? Why? @ -None What meds were considered but not given or refused? Why? @ -None Did you discuss the management of the patient with other professionals (professionals i.e. , PA, FASHION CONSULTANT, lab, RT, psych nurse, social worker palliative care, mail sorting supervisor, teacher, conservation science officer, shoe caser)? Give summary @Patient evaluated by EPS, will be admitted for further psychiatric care Was smoking cessation discussed for >3mins.? @ -No Was critical care preformed (if so, how long)? @ -No Were there social determinants of health that impacted care today? How? (Homelessness, low income, unemployed, alcoholism, drug addiction, transportation, low edu. Level, literacy, decrease access to med. care, [facility], rehab)? @ -No Was there de-escalation of care discussed even if they declined (Discuss DNR or withdrawal of care, Hospice)? DNR status @ -No What co-morbidities impacted this encounter? (DM, HTN, Smoking, COPD, CAD, Cancer, CVA, ARF, Chemo, Hep., AIDS, mental health diagnosis, sleep apnea, morbid obesity)? @ -None Was patient admitted / discharged? Hospital course, mention meds given and route, prescriptions, significant lab abnormalities, going to OR and other pertinent info. @ -[53-year-old male with depression, suicidal ideation and suicide attempt presenting for mental health evaluation. Patient has been petitioned. He is m edically cleared and evaluated by EPS, will be admitted to this institution for further psychiatric care. Undiagnosed new problem with uncertain prognosis? @ -No Drug Therapy requiring intensive monitoring for toxicity (Heparin, Nitro, Insulin, Cardizem)? @ -No Were any procedures done? @ -No Diagnosis/symptom? @Depression, suicidal attempt Acute, or Chronic, or Acute on Chronic? @ -[Acute Uncomplicated (without systemic symptoms) or Complicated (systemic symptoms)? @ -Default Side effects of treatment? @ -No Exacerbation, Progression, or Severe Exacerbation? @ -No Poses a threat to life or bodily function? How? (Chest pain, [place], [place], pneumonia, PE, COPD, DKA, ARF, appy, cholecystitis, CVA, Diverticulitis, Homicidal, Suicidal, threat to staff... and all critical care pts) @ -Yes, self-harm, suicidal Disposition Clinical Impression: Depression, Suicidal ideation Disposition: ADMITTED IP TO THIS [facility] Condition: Stable Is patient prescribed a controlled substance at d/c from ED?: No Referrals: Artie Zhang DO [Primary Care Provider] - 1-2 days Time of Disposition: 22:09
[2024-08-10 22:49] LABS: Cocaine Screen,Urine Not Detected (NotDetected); Phencyclidine Screen,Urine Not Detected (NotDetected); Urn Cannabinoid Scrn Not Detected (NotDetected)
[2024-08-10 22:50] LABS: Amphetamine Screen,Urine Not Detected (NotDetected); Barbiturate Screen,Urine Not Detected (NotDetected); Benzodiazepines Screen,Urine Not Detected (NotDetected); Methadone Screen, Urine Not Detected (NotDetected); Opiate Screen,Urine Not Detected (NotDetected); Oxycodone Screen, Urine Not Detected (NotDetected); Tricyclic Antidepressant,Urine Not Detected (NotDetected)
[2024-08-10] MEDS: LORazepam 1 MG TAB PO STA (23:44)
[2024-08-11] MEDS ORDERED: IBUPROFEN 600 MG TAB PO PRN (00:33)
[2024-08-11] MEDS ORDERED: MAG HYDROX/AL HYDROX/SIMETH 355 ML BOTTLE PO PRN (00:33)
[2024-08-11] MEDS ORDERED: HALOPERIDOL LACTATE 5 MG/ML 1 ML VIAL IM PRN (00:33)
[2024-08-11] MEDS ORDERED: haloperidoL 5 MG TAB PO PRN (00:33)
[2024-08-11] MEDS ORDERED: LORazepam 2 MG/ML INJ IM PRN (00:33)
[2024-08-11] MEDS ORDERED: ACETAMINOPHEN TAB 325 MG TAB PO PRN (00:33)
[2024-08-11] MEDS ORDERED: MAGNESIUM HYDROXIDE 2,400 MG/30 ML CUP PO PRN (00:33)
[2024-08-11] MEDS: traZODone HCL 50 MG TAB PO PRN (01:38)
[2024-08-11] MEDS: LORazepam 1 MG TAB PO PRN (01:38)
[2024-08-11 07:21] LABS: Appearance,Urine Cloudy (Clear); Bilirubin,Urine Negative (Negative); Blood,Urine Negative (Negative); Calcium Oxalate Crystals,Urine Moderate /hpf; Color,Urine Yellow; Glucose,Urine (UA) Negative (Negative); Hyaline Casts,Urine 4 /lpf (0-2); Ketones,Urine Negative (Negative); Leukocyte Esterase,Urine Negative (Negative); Mucus,Urine Many /hpf; Nitrite,Urine Negative (Negative); Protein,Urine 1+ (Negative); RBC,Urine 1 /hpf (0-5); Specific Gravity,Urine 1.016 (1.001-1.035); Urobilinogen,Urine <2.0 mg/dL (<2.0); WBC,Urine 2 /hpf (0-5)
[2024-08-11] MEDS: NICOTINE 14MG/24HR PATCH TRANSDERM SCH (09:08)
[2024-08-11] MEDS: lisinopriL 10 MG TAB PO SCH (09:08)
[2024-08-11] MEDS: NON FORMULARY DRUG (Buprenorphine Hcl/Naloxone Hcl [Suboxone 8 Mg-2 Mg Sl Film] 1 EACH Fil SUBLINGUAL SCH (09:09)
[2024-08-11 09:38] LABS: WBC 7.8 k/uL (3.8-10.6)
[2024-08-11 09:39] LABS: Basophils % (A) 0 %; Eosinophils # (A) 0.1 k/uL (0-0.7); Eosinophils % (A) 1 %; HCT 49.9 % (39.0-53.0); HGB 16.3 gm/dL (13.0-17.5); Lymphocytes % (A) 25 %; MCHC 32.6 g/dL (31.0-37.0); MCV 88.8 fL (80.0-100.0); Monocytes # (A) 0.4 k/uL (0-1.0); Monocytes % (A) 5 %; Neutrophils # (A) 5.2 k/uL (1.3-7.7); Neutrophils % (A) 67 %; Platelet Count 402 k/uL (150-450); RBC 5.62 m/uL (4.30-5.90); RDW 13.6 % (11.5-15.5)
[2024-08-11] MEDS: METOPROLOL TARTRATE 25 MG TAB PO SCH (09:56)
[2024-08-11 09:58] LABS: ALT 23 U/L (4-49); AST 21 U/L (17-59); African American GFR (CKD) >90 (>60 ml/min/1.73 sqM); Albumin 5.1 g/dL (3.5-5.0); Alkaline Phosphatase 89 U/L (38-126); Anion Gap 16 mmol/L; Bilirubin, Delta 0.1 mg/dL (0.0-0.2); Bilirubin,Unconjugated 0.8 mg/dL (0.0-1.1); Blood Urea Nitrogen 9 mg/dL (9-20); Calcium 10.1 mg/dL (8.4-10.2); Carbon Dioxide 24 mmol/L (22-30); Chloride 103 mmol/L (98-107); Glucose 107 mg/dL (74-99); Non-African American GFR(CKD) >90 (>60 ml/min/1.73 sqM); Potassium 3.6 mmol/L (3.5-5.1); Sodium 143 mmol/L (137-145); Total Bilirubin 0.9 mg/dL (0.2-1.3); Total Protein 8.3 g/dL (6.3-8.2)
--- NOTE | 2024-08-11 14:56 | P.HP ---
Psychiatric H&P - . H&P Date: 08/11/24 History & Physical: Allergies Allergy/AdvReac Type Severity Reaction Status Date / Time doxycycline Allergy Rash/Hives, Verified 08/10/24 20:51 swelling levofloxacin from Levaquin Allergy Rash/Hives, Verified 08/10/24 20:51 throat swelling Penicillins Allergy Rash/Hives, Verified 08/10/24 20:51 throat swelling Vital Signs Temp 96.8 F L 08/11/24 08:00 Pulse 131 H 08/11/24 08:00 Resp 16 08/11/24 01:56 BP 158/127 08/11/24 08:00 Pulse Ox 96 08/11/24 08:00 FiO2 Intake & Output 08/10/24 08/11/24 08/11/24 18:59 06:59 18:59 Weight 105.744 kg Laboratory Last Values WBC 7.8 k/uL (3.8-10.6) 08/11/24 09:13 RBC 5.62 m/uL (4.30-5.90) 08/11/24 09:13 Hgb 16.3 gm/dL (13.0-17.5) 08/11/24 09:13 Hct 49.9 % (39.0-53.0) 08/11/24 09:13 MCV 88.8 fL (80.0-100.0) 08/11/24 09:13 MCH 29.0 pg (25.0-35.0) 08/11/24 09:13 MCHC 32.6 g/dL (31.0-37.0) 08/11/24 09:13 RDW 13.6 % (11.5-15.5) 08/11/24 09:13 Plt Count 402 k/uL (150-450) 08/11/24 09:13 MPV 7.0 08/11/24 09:13 Neutrophils % 67 % 08/11/24 09:13 Lymphocytes % 25 % 08/11/24 09:13 Monocytes % 5 % 08/11/24 09:13 Eosinophils % 1 % 08/11/24 09:13 Basophils % 0 % 08/11/24 09:13 Neutrophils # 5.2 k/uL (1.3-7.7) 08/11/24 09:13 Lymphocytes # 2.0 k/uL (1.0-4.8) 08/11/24 09:13 Monocytes # 0.4 k/uL (0-1.0) 08/11/24 09:13 Eosinophils # 0.1 k/uL (0-0.7) 08/11/24 09:13 Basophils # 0.0 k/uL (0-0.2) 08/11/24 09:13 Sodium 143 mmol/L (137-145) 08/11/24 09:13 Potassium 3.6 mmol/L (3.5-5.1) 08/11/24 09:13 Chloride 103 mmol/L (98-107) 08/11/24 09:13 Carbon Dioxide 24 mmol/L (22-30) 08/11/24 09:13 Anion Gap 16 mmol/L 08/11/24 09:13 BUN 9 mg/dL (9-20) 08/11/24 09:13 Creatinine 0.70 mg/dL (0.66-1.25) 08/11/24 09:13 Est GFR (CKD-EPI)AfAm >90 (>60 ml/min/1.73 sqM) 08/11/24 09:13 Est GFR (CKD-EPI)NonAf >90 (>60 ml/min/1.73 sqM) 08/11/24 09:13 Glucose 107 mg/dL (74-99) H 08/11/24 09:13 Calcium 10.1 mg/dL (8.4-10.2) 08/11/24 09:13 Total Bilirubin 0.9 mg/dL (0.2-1.3) 08/11/24 09:13 Conjugated Bilirubin 0.0 mg/dL (0.0-0.3) 08/11/24 09:13 Unconjugated Bilirubin 0.8 mg/dL (0.0-1.1) 08/11/24 09:13 Delta Bilirubin 0.1 mg/dL (0.0-0.2) 08/11/24 09:13 AST 21 U/L (17-59) 08/11/24 09:13 ALT 23 U/L (4-49) 08/11/24 09:13 Alkaline Phosphatase 89 U/L (38-126) 08/11/24 09:13 Total Protein 8.3 g/dL (6.3-8.2) H 08/11/24 09:13 Albumin 5.1 g/dL (3.5-5.0) H 08/11/24 09:13 TSH 0.968 mIU/L (0.465-4.680) 08/11/24 09:13 Urine Color Yellow 08/10/24 22:15 Urine Appearance Cloudy (Clear) 08/10/24 22:15 Urine pH 6.0 (5.0-8.0) 08/10/24 22:15 Ur Specific [place] 1.016 (1.001-1.035) 08/10/24 22:15 Urine Protein 1+ (Negative) H 08/10/24 22:15 Urine Glucose (UA) Negative (Negative) 08/10/24 22:15 Urine Ketones Negative (Negative) 08/10/24 22:15 Urine Blood Negative (Negative) 08/10/24 22:15 Urine Nitrite Negative (Negative) 08/10/24 22:15 Urine Bilirubin Negative (Negative) 08/10/24 22:15 Urine Urobilinogen <2.0 mg/dL (<2.0) 08/10/24 22:15 Ur Leukocyte Esterase Negative (Negative) 08/10/24 22:15 Urine RBC 1 /hpf (0-5) 08/10/24 22:15 Urine WBC 2 /hpf (0-5) 08/10/24 22:15 Calcium Oxalate Crystal Moderate /hpf (None) H 08/10/24 22:15 Hyaline Casts 4 /lpf (0-2) H 08/10/24 22:15 Urine Mucus Many /hpf (None) H 08/10/24 22:15 Urine Opiates Screen Not Detected (NotDetected) 08/10/24 22:15 Ur Oxycodone Screen Not Detected (NotDetected) 08/10/24 22:15 Urine Methadone Screen Not Detected (NotDetected) 08/10/24 22:15 Ur Barbiturates Screen Not Detected (NotDetected) 08/10/24 22:15 U Tricyclic Antidepress Not Detected (NotDetected) 08/10/24 22:15 Ur Phencyclidine Scrn Not Detected (NotDetected) 08/10/24 22:15 Ur Amphetamines Screen Not Detected (NotDetected) 08/10/24 22:15 U Methamphetamines Scrn Not Detected (NotDetected) 08/10/24 22:15 U Benzodiazepines Scrn Not Detected (NotDetected) 08/10/24 22:15 Urine Cocaine Screen Not Detected (NotDetected) 08/10/24 22:15 U Marijuana (THC) Screen Not Detected (NotDetected) 08/10/24 22:15 SARS-CoV-2 (PCR) Not Detected (Not Detectd) 08/10/24 23:15 08/11/24 14:49 IDENTIFYING DATA: Patient is a 53-year-old male, homeless, unemployed CHIEF COMPLAINT: Suicide attempt HPI: Patient presented to the hospital with SI, suicide attempt. Per EPS, "pt sitting in ER conference room. Supervisor Paint deputies at bedside; deputies departed during assessment. pt states, "I was starting to cut my wrists again." pt reports that he had also attmepted to overdose on "every single one of my meds" about 2 days ago. pt states that this caused him to sleep for 15 hours before waking up. pt states, "I woke up and I was pissed." pt continues to report SI. pt denies HI. pt reports history of hallucinations, but states, "It's been awhile." pt reports poor sleep due to homelessness and sleeping in his truck. pt also reports decreased appetite. pt denies that this is because of inability to get food and states that he has no appetite. No delusional thoughts verbalized. pt cooperative with assessment." Patient seen and evaluated on the unit and was agreeable with speaking to senior grant writer in office. He states he immediately stopped his medications upon discharge and did not follow-up with [facility] as he did not feel like they could help him. He states relapsing on fentanyl on the outpatient side and took a bunch of these pills in an attempt to commit suicide however t his was not fulfilled as he woke up shortly after. Patient mentions receiving his paycheck from his job however there are currently no jobs available and thus he has still been living in his car. He mentions recently taking all of his psychotropic medications and attempt to kill himself however all he did was sleep. He states yesterday hacking at his [place] [address] when the police came and brought him here. Patient expresses having no goals for this hospitalization saying that no one here can help him. He was agreeable with going to rehab if accepted given his recent relapse. Patient denies any suicidal or homicidal ideations intent or plan. At this time patient denies any auditory or visual hallucinations. Patient denies any flight of ideas racing thoughts and increased in goal directed behavior. Patient admits to using patient reports relapsing on fentanyl, smoking nicotine daily. PAST PSYCHIATRIC HISTORY: Patient has a history of MDD, anxiety, opioid use disorder. Patient denies being on any psychiatric medications. He most recently was discharged on Zoloft 100 mg daily, trazodone 100 mg at bedtime, mirtazapine. Patient most recently was at this facility back in June 2024. Patient denies any psychiatric outpatient follow-up. Prior to this admission, patient most recent suicide attempt was back in 2020. PMH: as per ER note ALLERGIES: as per EMR SUBSTANCE USE HISTORY: As per HPI FAMILY PSYCHIATRIC/SUBSTANCE USE HISTORY: Denies SOCIAL HISTORY: Patient is , homeless and living in his car. He has 2 children. He completed some college. He is unemployed MENTAL STATUS EXAM: General Appearance: Patient appears to be stated age is alert, directable, and attempts to cooperate. Patient appears to have poor hygiene and grooming. Behavior: Patient is seated without any agitated behavior. Speech: Patient's speech is fluent and nonpressured. Mood/Affect: Patient reports their mood is depressed, affect is congruent and constricted. Suicidality/Homicidality: Patient denies having any homicidal ideation intent or plan. He reports suicidal ideations with several plans however will not act on them in the hospital Perceptions: Patient denies any visual hallucinations and denies any auditory hallucinations Though content/process: There is no evidence of any delusional thought content and thought process is linear. Memory and concentration: AOX3, grossly intact for the purposes of this session. Can spell "WORLD" backwards Judgment and insight: Poor STRENGTHS/WEAKNESSES: strength is that patient is resilient. Weakness is that patient has poor judgment, nonadherent with medications, lack of outpatient follow-up and is impulsive INTELLECT: Average IMPRESSIONS: Major depressive disorder, recurrent, severe Suicide attempt via cutting Anxiety, unspecified Opioid use disorder Nicotine dependence PLAN: -Patient is admitted under voluntary status to [facility] for stabilization of psychiatric symptoms and safety. Patient has signed adult voluntary form and medication consent and is placed in patient's chart. -Medications : Start Remeron 7.5 mg at bedtime for mood/sleep/appetite, start trazodone 100 mg at bedtime for insomnia, lithium 300 mg twice daily for suicidality/mood stabilization -Ativan and Haldol PRN for agitation/aggressio -Patient was counselled on substance abuse and desired to cut back on use-Will offer patient subtance use rehab -Patient was informed of the risks, benefits and side effects of the medication and patient verbally consented to taking the medications. Patient signed med consent form and was placed in chart. -Internal Medicine consult to perform medical evaluation and physical. -NRT -nicotine patch -SW on board for discharge planning. Encourage patient to participate in groups to work on coping skills.
--- NOTE | 2024-08-11 14:59 | P.CONS ---
History of Present Illness - Reason for Consult Consult date: 08/11/24 Medical Consult Requesting physician: Abdias Pappas - History of Present Illness This is a 53 year old male with medical history of hypertension, restless leg syndrome, anxiety/depression and chronic tobacco/nicotine use. Patient is currently experiencing homelessness and feelings of hopelessness and worsening depression. He was admitted in June for the same. Patient comes in with suicidal ideations and attempt. He is noted to have a superficial laceration to his left wrist. Patient states he "did not go deep enough". He admits to smoking daily, denies any alcohol or illicut substances. He is currently homeless and not working. He has no acute complaints at this time. He has no chest pain or shortness of breath. He is alert and oriented, pleasant. His psychiatric medications will be adjusted. He was resumed on his lisinopril and started on oral metoprolol BID as he does have significant tachycardia. He does state he was on metoprolol in the past but noncompliant with taking. TSH 0.968. Urinalysis negative for infection. CBC unremarkable. BMP essentially unremarkable and glucose is 107. Covid negative. Review of Systems Constitutional: Denied any fatigue denied any fever. Cardio vascular: denied any chest pain, palpitations Gastrointestinal: denied any nausea, vomiting, diarrhea Pulmonary: Denied any shortness of breath cough Neurologic denied any new focal deficits All inpatient medications were reviewed and appropriate changes in these medications as dictated in the interval history and assessment and plan. PHYSICAL EXAMINATION: GENERAL: The patient is alert and oriented x3, not in any acute distress. Well developed, well nourished. HEENT: Pupils are round and equally reacting to light. EOMI. No scleral icterus. No conjunctival pallor. Normocephalic, atraumatic. No pharyngeal erythema. No thyromegaly. CARDIOVASCULAR: S1 and S2 present. No murmurs, rubs, or gallops. PULMONARY: Chest is clear to auscultation, no wheezing or crackles. ABDOMEN: Soft, nontender, nondistended, normoactive bowel sounds. No palpable organomegaly. MUSCULOSKELETAL: No joint swelling or deformity. EXTREMITIES: No cyanosis, clubbing, or pedal edema. NEUROLOGICAL: Gross neurological examination did not reveal any focal deficits. SKIN: No rashes. Assessment and Plan Depression and suicidal ideations with attempt Superficial laceration to the left wrist. Anxiety/Depression history Hypertension with urgency. Medications will be resumed and adjusted History of restless leg syndrome Peripheral neuropathy maintained on gabapentin. Hx of opioid addiction GI prophylaxis DVT prophylaxis Full Code Plan Lisinopril discontinued due to interaction with lithium Started on norvasc and will continue on metoprolol and adjust dosing as needed Continue other medications per psychiatry Continue nicotine patch Continue suboxone tablets. Thank you kindly for this consultation we will continue to follow along as needed. The impression and plan of care has been dictated by Milka Benitez, Nurse Practitioner as directed. Dr. Glen MD I have performed a history and physical examination and medical decision making of this patient, discussed the same with the dictator, and agree with the dictators assessment and plan as written, documented as a scribe. Based on total visit time, I have performed more than 50% of this visit. Past Medical History Past Medical History: Hypertension, Neurologic Disorder, Osteoarthritis (OA) Additional Past Medical History / Comment(s): Restless Leg Syndrome. Hx ulcer , migraines, hx hypertension, thought he had seizure last summer- was not seen, bursitis rt elbow,. 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 History of Any Multi-Drug Resistant Organisms: None Reported Past Surgical History: Cholecystectomy, Hernia Repair, Orthopedic Surgery Additional Past Surgical History / Comment(s): ORIF rt wrist/hardware later removed, arthroscopy ky knees, Skin CA removal right top of head. Past Anesthesia/Blood Transfusion Reactions: Previous Problems w/ Anesthesia, Motion Sickness Additional Past Anesthesia/Blood Transfusion Reaction / Comm: "Freaked out when woke up after gallbladder surgery, was trying to get out of bed." Past Psychological History: Anxiety, Depression Smoking Status: Current every day smoker, Vaper Past Alcohol Use History: Rare Past Drug Use History: None Reported Additional Drug Use History / Comment(s): Pt. states "I used to do some drugs when I was younger but haven't in a long time". - Past Family History Mother Family Medical History: No Reported History Medications and Allergies Home Medications Medication Instructions Recorded Confirmed Type Gabapentin [Neurontin] 300 mg PO TID 02/25/23 07/07/24 History lisinopriL 30 mg PO DAILY 02/25/23 07/07/24 History Buprenorphine HCl/Naloxone HCl 1 film SL BID 2 Days #4 film 07/16/24 Rx [Suboxone 8 mg-2 mg Sl Film] Gabapentin [Neurontin] 300 mg PO TID 30 Days #0 cap 07/16/24 Rx Mirtazapine [Remeron] 7.5 mg PO HS 30 Days #15 tab 07/16/24 Rx Nicotine 14Mg/24Hr Patch [Habitrol] 1 patch TRANSDERM DAILY patch 07/16/24 Rx Nicotine Gum (Polacrilex) 2 mg BUCCAL Q4HR PRN pieceofgum 07/16/24 Rx [Nicorette] Sertraline [Zoloft] 100 mg PO DAILY 30 Days #30 tab 07/16/24 Rx traZODone HCL [Desyrel] 100 mg PO HS 30 Days #30 tab 07/16/24 Rx Allergies Allergy/AdvReac Type Severity Reaction Status Date / Time doxycycline Allergy Rash/Hives, Verified 08/10/24 20:51 swelling levofloxacin [From Levaquin] Allergy Rash/Hives, Verified 08/10/24 20:51 throat swelling Penicillins Allergy Rash/Hives, Verified 08/10/24 20:51 throat swelling Physical Exam Vitals: Vital Signs Temp Pulse Pulse Resp BP BP Pulse Ox 08/11/24 08:00 96.8 F L 131 H 158/127 96 08/11/24 01:56 98.1 F 104 H 16 164/113 99 08/10/24 20:47 99.0 F 114 H 18 162/112 100 Intake and Output 08/10/24 08/11/24 08/11/24 22:59 06:59 14:59 Other: Weight 111.13 kg 105.744 kg Results CBC & Chem 7: 08/11/24 09:13 08/11/24 09:13 Labs: Abnormal Lab Results - Last 24 Hours (Table) 08/10/24 Range/Units 22:15 Urine Protein 1+ H (Negative) Calcium Oxalate Crystal Moderate H (None) /hpf Hyaline Casts 4 H (0-2) /lpf Urine Mucus Many H (None) /hpf Assessment and Plan Time with Patient: Less than 30
[2024-08-11 16:37] LABS: Chol/HDL Ratio 5.19 Ratio
[2024-08-11] MEDS: NICOTINE GUM (POLACRILEX) 2 MG GUM BUCCAL PRN (16:55)
[2024-08-11] MEDS: MIRTAZAPINE 15 MG TAB PO SCH (20:02)
[2024-08-11] MEDS: BUPRENORPHINE-NALOX 8-2 MG TAB 1 EACH TAB.SUBL SL SCH (20:03)
[2024-08-11] MEDS: traZODone HCL 100 MG TAB PO SCH (20:03)
[2024-08-11] MEDS: LITHIUM CARBONATE 300 MG CAP PO SCH (20:03)
[2024-08-12] MEDS: amLODIPine 5 MG TAB PO SCH (08:34)
--- NOTE | 2024-08-12 11:48 | P.PN ---
Progress Note - Text Progress Note Date: 08/12/24 Interval History: Patient was seen in his room and was directable and agreeable to speak with wr iter in the room. He expresses difficulties with sleep overnight described as issues with both falling and staying asleep. He also reports some questionable auditory hallucinations described as hearing people call his name. He reports an improvement in his appetite today. He spoke to his daughter yesterday. He mentions his past relationship with his second ex- whom has a restraining order out against him and states he plans on taking her off the visitation list given the toxicity in the relationship and he was encouraged to maintain boundaries with her. He was agreeable with calling [facility] for [facility] given his recent relapse on fentanyl. He reported bad cravings yesterday however this improved with restarting Suboxone. He continues to report suicidal ideations with a plan however he is able to keep himself safe in the hospital. At this time patient denies any homicidal ideations, intent or plan. Patient denies any auditory, visual hallucinations and denies any paranoia or delusions. Patient denies any side effects from the medications and has been compliant with meds. Mental Status Exam: General Appearance: Patient appears to be stated age is alert, directable, and cooperative. Behavior: Patient is calmly laying without any agitated behavior. Speech: Patient's speech is fluent and nonpressured. Mood/Affect: Mood is depressed, affect is congruent and constricted. Suicidality/Homicidality: Patient denies having any homicidal ideation intent or plan. He reports suicidal ideations with a plan, no intent while in the hospital Perceptions: Patient denies any visual hallucinations and denies any auditory hallucinations Though content/process: There is no evidence of any delusional thought content and thought process is linear. Memory and concentration: AOX3, grossly intact for the purposes of this session Judgment and insight: Historically poor however improving mildly Assessment Major depressive disorder, recurrent, severe Suicide attempt via cutting Cluster B traits Anxiety, unspecified Opioid use disorder Nicotine dependence Plan: -Patient continues to meet criteria for inpatient psychiatric admission for symptom stabilization and safety. Patient has signed adult voluntary form and medication consent and was placed in patient's chart. -Medications: Increase trazodone to 150 mg at bedtime for insomnia, add melatonin 10 mg at bedtime for insomnia, continue Remeron 7.5 mg at bedtime for mood/sleep/appetite, lithium 300 mg twice daily for suicidality/mood stabilization -When necessary Ativan and Haldol for agitation/aggression. -Labs: Reviewed, lipid panel elevated will defer to outpatient for treatment -NRT -nicotine patch -SW on board for discharge planning. Encouraged the patient to participate in milieu.
[2024-08-12] MEDS: MELATONIN 5 MG TABLET PO SCH (20:43)
[2024-08-12] MEDS: traZODone HCL 100 MG TAB PO SCH (20:44)
--- NOTE | 2024-08-13 10:38 | P.PN ---
Progress Note - Text Progress Note Date: 08/13/24 Interval History: Patient was seen in bed and was directable and agreeable to speak with senior copywriter in the room. He states sleeping well however his roommate stated he was screaming and yelling overnight however he denied any nightmares. He mentioned previously experiencing this at nighttime however this was many years ago. He reports otherwise appetite is well, no concerns expressed today. He denied any improvement in his suicidal ideations however no worsening in them. He continues to express a desire to go to rehab given his recent relapse on fentanyl prior to admission. He denied any cravings on the Suboxone however. At this time patient denies any homicidal ideations, intent or plan. Patient denies any auditory, visual hallucinations and denies any paranoia or delusions. Patient denies any side effects from the medications and has been compliant with meds. Mental Status Exam: General Appearance: Patient appears to be stated age is alert, directable, and cooperative. Behavior: Patient is calmly laying without any agitated behavior. Speech: Patient's speech is fluent and nonpressured. Mood/Affect: Mood is depressed, affect is congruent and constricted. Suicidality/Homicidality: Patient denies having any homicidal ideation intent or plan. He reports suicidal ideations with a plan Perceptions: Patient denies any visual hallucinations and denies any auditory hallucinations Though content/process: There is no evidence of any delusional thought content and thought process is linear. Memory and concentration: AOX3, grossly intact for the purposes of this session Judgment and insight: Historically poor however improving mildly Assessment Major depressive disorder, recurrent, severe Suicide attempt via cutting Cluster B traits Anxiety, unspecified Opioid use disorder Nicotine dependence Plan: -Patient continues to meet criteria for inpatient psychiatric admission for symptom stabilization and safety. Patient has signed adult voluntary form and medication consent and was placed in patient's chart. -Medications: Continue trazodone 150 mg at bedtime for insomnia, melatonin 10 mg at bedtime for insomnia, Remeron 7.5 mg at bedtime for mood/sleep/appetite, lithium 300 mg twice daily for suicidality/mood stabilization -When necessary Ativan and Haldol for agitation/aggression. -Labs: Reviewed, lipid panel elevated however will defer to outpatient for treatment recommendations -NRT -nicotine patch -SW on board for discharge planning. Encouraged the patient to participate in milieu.
--- NOTE | 2024-08-14 12:41 | P.PN ---
Progress Note - Text Progress Note Date: 08/14/24 Interval History: [facility] and was directable and agreeable to speak with typewriter mechanic in the office. Patient notably appeared more reactive to which she corroborated feeling better today. He mentions it being a while since he last felt this well, attributing to the medications. Patient was encouraged to continue to take these medications upon discharge. He called [facility] yesterday and paperwork were faxed to [place] for rehab upon discharge. He mentions feeling more hopeful. He states his daughter is moving his truck today and that he has been in contact with her. He mentions sleeping well, improvements in depression today. He reports lessening in intensity in his suicidal ideations. At this time patient denies any homicidal ideations, intent or plan. Patient denies any auditory, visual hallucinations and denies any paranoia or delusions. Patient denies any side effects from the medications and has been compliant with meds. Mental Status Exam: General Appearance: Patient appears to be stated age is alert, directable, and cooperative. Behavior: Patient is calmly seated without any agitated behavior. Speech: Patient's speech is fluent and nonpressured. Mood/Affect: Mood is improving mildly, affect is congruent and more reactive. Suicidality/Homicidality: Patient denies having any suicidal or homicidal ideation intent or plan. Perceptions: Patient denies any visual hallucinations and denies any auditory hallucinations Though content/process: There is no evidence of any delusional thought content and thought process is linear and logical. Memory and concentration: AOX3, grossly intact for the purposes of this session Judgment and insight: Юлия poor however improving mildly Assessment Major depressive disorder, recurrent, severe Suicide attempt via cutting Cluster B traits Anxiety, unspecified Opioid use disorder Nicotine dependence Plan: -Patient continues to meet criteria for inpatient psychiatric admission for symptom stabilization and safety. Patient has signed adult voluntary form and medication consent and was placed in patient's chart. -Medications: Continue trazodone 150 mg at bedtime for insomnia, melatonin 10 mg at bedtime for insomnia, Remeron 7.5 mg at bedtime for mood/sleep/appetite, lithium 30 mg twice daily for suicidality/mood stabilization -When necessary Ativan and Haldol for agitation/aggression. -Labs: Reviewed -NRT -nicotine patch -SW on board for discharge planning. Encouraged the patient to participate in milieu. Anticipate discharge early next week to rehab versus half-way
--- NOTE | 2024-08-15 09:54 | P.PN ---
Progress Note - Text Progress Note Date: 08/15/24 Interval history: Patient was seen laying in his bed today and was directable and agreeable to speak with senior underwriter. Patient claims that he just showered. Claims that he is doing a bit better, fairly concrete. Denies any depression or anxiety at this time. States that he had a difficult time sleeping last night due to the laundry machine. Wants to keep his medications the same, has been going to some groups. At this time patient denies any suicidal or homicidal ideations intent or plan. Denies any Auditory or visual hallucinations. Patient denies any side effects from the medications and has been compliant with meds. Mental status exam: General Appearance: Patient appears to be tall, murphy, stated age is alert, directable, and cooperative. Behavior: No agitated behavior. Patient is calm and directable attempts to cooperate Speech: Patient's speech is fluent and nonpressured. Mood/Affect: Mood is improving mildly, affect is congruent and constricted. Suicidality/Homicidality: Patient denies having any suicidal or homicidal ideation intent or plan. Perceptions: Patient denies any auditory or visual hallucinations. Though content/process: There is no evidence of any delusional thought content and thought process is linear and goal-directed. Memory and concentration: AOX3, grossly intact for the purposes of this session Judgment and insight: improving mildly Assessment/Plan: Continue with current diagnosis. Patient continues to meet criteria for inpatient psychiatric admission for symptom stabilization and safety. Patient will be maintained on current psychotropic medication regimen. Monitor for medication compliance and for any psychotropic medication side effects. Will continue to monitor ongoing response to treatment. Encouraged participation in milieu.
[2024-08-15] MEDS: amLODIPine 5 MG TAB PO STA (11:10)
[2024-08-16] MEDS: amLODIPine 10 MG TAB PO SCH (08:51)
--- NOTE | 2024-08-16 12:31 | P.PN ---
Progress Note - Text Progress Note Date: 08/16/24 Interval history: Patient was seen in cards in the [facility] and was directable and agreeable to s peak with service writer advisor. Patient claims that he is doing a bit better today, he is to be fairly concrete. Mild improvement in affect today. Denies any depression or anxiety at this time. States that he still has some issues with sleep, mainly regarding the doors being slammed at nighttime. He wants to be on the same medications at nighttime and no dose increase. Endorsing fair appetite has been showering. At this time patient denies any suicidal or homicidal ideations intent or plan. Denies any Auditory or visual hallucinations. Patient denies any side effects from the medications and has been compliant with meds. Mental status exam: General Appearance: Patient appears to be tall, murphy, stated age is alert, directable, and cooperative. Behavior: No agitated behavior. Patient is calm and directable attempts to cooperate, improving mildly Speech: Patient's speech is fluent and nonpressured. Mood/Affect: Mood is improving mildly, affect is congruent and constricted. Suicidality/Homicidality: Patient denies having any suicidal or homicidal ideation intent or plan. Perceptions: Patient denies any auditory or visual hallucinations. Though content/process: There is no evidence of any delusional thought content and thought process is linear and goal-directed. Mildly Memory and concentration: AOX3, grossly intact for the purposes of this session Judgment and insight: improving mildly Assessment/Plan: Continue with current diagnosis. Patient continues to meet criteria for inpatient psychiatric admission for symptom stabilization and safety. Patient will be maintained on current psychotropic medication regimen. Monitor for medication compliance and for any psychotropic medication side effects. Will continue to monitor ongoing response to treatment. Encouraged participation in milieu.
--- NOTE | 2024-08-17 12:54 | P.PN ---
Progress Note - Text Progress Note Date: 08/17/24 Interval History: Patient was seen wandering the hallways and was directable and agreeable to sp alexandrak with credit underwriter in the office. He reports feeling anxious related to upcoming discharge stating he has been having panic attacks however as needed Ativan has been helpful. He was encouraged to utilize coping skills including deep breathing when feeling anxious. Patient told credit underwriter he is still agreeable with rehab however he told staff overnight that he was not interested in rehab. Patient is currently homeless and has been living in his car which is causing the increase in anxiety. He reports sleeping poorly overnight described as difficulties falling asleep. He continues to express suicidal ideations however does mention that they are less intense than previous encounter. At this time patient denies any homicidal ideations, intent or plan. Patient denies any auditory, visual hallucinations and denies any paranoia or delusions. Patient denies any side effects from the medications and has been compliant with meds. Mental Status Exam: General Appearance: Patient appears to be stated age is alert, directable, and cooperative. Behavior: Patient is calmly seated without any agitated behavior. Speech: Patient's speech is fluent and nonpressured. Mood/Affect: Mood is improving mildly, affect is congruent and more reactive. Suicidality/Homicidality: Patient denies having any homicidal ideation intent or plan. He reports suicidal ideations however less intense than previous encounters Perceptions: Patient denies any visual hallucinations and denies any auditory hallucinations Though content/process: There is no evidence of any delusional thought content and thought process is linear and logical. Memory and concentration: AOX3, grossly intact for the purposes of this session Judgment and insight: Improving mildly Assessment Major depressive disorder, recurrent, severe Suicide attempt via cutting Cluster B traits Anxiety, unspecified Opioid use disorder Nicotine dependence Plan: -Patient continues to meet criteria for inpatient psychiatric admission for symptom stabilization and safety. Patient has signed adult voluntary form and medication consent and was placed in patient's chart. -Medications: Increase lithium to 400 mg twice daily for suicidality/mood s tabilization, continue trazodone 150 mg at bedtime for insomnia, melatonin 10 mg at bedtime for insomnia, Remeron 7.5 mg at bedtime for mood/sleep/appetite -When necessary Ativan and Haldol for agitation/aggression. -Labs: Worden level returned at 0.4, will order another level prior to discharge -NRT -nicotine patch -SW on board for discharge planning. Encouraged the patient to participate in milieu. Anticipate discharge on to rehab versus intermediate
[2024-08-17] MEDS: LITHIUM CARBONATE 150 MG CAP PO SCH (20:40)
--- NOTE | 2024-08-18 12:32 | P.PN ---
Progress Note - Text Progress Note Date: 08/18/24 Interval History: Patient was seen in group and was directable and agreeable to speak with senior underwriter in the office. He reports sleeping better last night however continues to report feeling anxious today related to upcoming discharge. Dates as needed Ativan has been helpful for this. He is still agreeable with going to rehab if accepted stating he has nowhere else to go. Patient was notably more goal oriented today, talked about his job in [email or web address] and how he is hopeful to get more job soon now that it is warm. He continues to express suicidal ideations, better than initial encounter. At this time patient denies any homicidal ideations, intent or plan. Patient denies any auditory, visual hallucinations and denies any paranoia or delusions. Patient denies any side effects from the medications and has been compliant with meds. Mental Status Exam: General Appearance: Patient appears to be stated age is alert, directable, and cooperative. Behavior: Patient is calmly seated without any agitated behavior. Speech: Patient's speech is fluent and nonpressured. Mood/Affect: Mood is improving mildly, affect is congruent and more reactive. Suicidality/Homicidality: Patient denies having any homicidal ideation intent or plan. Reports suicidal ideations, lessening in intensity Perceptions: Patient denies any visual hallucinations and denies any auditory hallucinations Though content/process: There is no evidence of any delusional thought content and thought process is linear and goal-directed. Memory and concentration: AOX3, grossly intact for the purposes of this session Judgment and insight: Historically poor however improving mildly Assessment Major depressive disorder, recurrent, severe Suicide attempt via cutting Cluster B traits Anxiety, unspecified Opioid use disorder Nicotine dependence Plan: -Patient continues to meet criteria for inpatient psychiatric admission for symptom stabilization and safety. Patient has signed adult voluntary form and medication consent and was placed in patient's chart. -Medications: Continue lithium 400 mg twice daily for suicidality/mood stabilization, trazodone 150 mg at bedtime for insomnia, melatonin 10 mg at bedtime for insomnia, Remeron 7.5 mg at bedtime for mood/sleep/appetite -When necessary Ativan and Haldol for agitation/aggression. -Labs: [place] level returned at 0.4, will order another one in 2 days -NRT -nicotine patch -SW on board for discharge planning. Encouraged the patient to participate in milieu. Anticipate discharge on to rehab versus assisted
--- NOTE | 2024-08-19 13:07 | P.PN ---
Progress Note - Text Progress Note Date: 08/19/24 Interval History: Patient was seen wandering the hallways and was directable and agreeable to sp elliott with com writer in the office. Patient reports feeling "bummed out" about not being accepted at [facility]. Patient does not wish to try for somewhere else, still not on board with going to a longterm as an alternative. Patient continues to express a limited support network, stating his daughter is unable to help him out given his limitations at the moment. Patient was goal oriented and is hopeful that his job picks up now that is getting warmer. He continues to express suicidal ideations related to his psychosocial stressors, lessening in intensity. Patient was highly encouraged to follow-up with [facility] upon discharge for both medication management and help with housing however patient was adamant on not following up with them as they have not been helpful in the past despite encouragement. At this time patient denies any homicidal ideations, intent or plan. Patient denies any auditory, visual hallucinations and denies any paranoia or delusions. Patient denies any side effects from the medications and has been compliant with meds. Mental Status Exam: General Appearance: Patient appears to be stated age is alert, directable, and cooperative. Behavior: Patient is calmly seated without any agitated behavior. Speech: Patient's speech is fluent and nonpressured. Mood/Affect: Mood is improving mildly, affect is congruent and constricted. Suicidality/Homicidality: Patient denies having any homicidal ideation intent or plan. He reports suicidal ideations, lessening in intensity Perceptions: Patient denies any visual hallucinations and denies any auditory hallucinations Though content/process: There is no evidence of any delusional thought content and thought process is linear and goal-directed. Memory and concentration: AOX3, grossly intact for the purposes of this session Judgment and insight: Historically poor however improving mildly Assessment Major depressive disorder, recurrent, severe Suicide attempt via cutting Cluster B traits Anxiety, unspecified Opioid use disorder Nicotine dependence Plan: -Patient continues to meet criteria for inpatient psychiatric admission for symptom stabilization and safety. Patient has signed adult voluntary form and medication consent and was placed in patient's chart. -Medications: Continue lithium 400 mg twice daily for suicidality/mood stabilization, trazodone 150 mg at bedtime for insomnia, melatonin 10 mg at be dtime for insomnia, Remeron 7.5 mg at bedtime for mood/sleep/appetite -When necessary Ativan and Haldol for agitation/aggression. -Labs: [place] level reordered tomorrow given the recent increase -NRT -nicotine patch -SW on board for discharge planning. Encouraged the patient to participate in milieu. Anticipate discharge to longterm tomorrow. Patient strongly encouraged to follow-up with [facility] upon discharge and will be given a limited prescription
[2024-08-20 10:30] VITALS: BP 156/105; PULSE 100; RESP 15; TEMP 98
--- NOTE | 2024-08-20 13:39 | P.DS ---
Providers Date of admission: 08/11/24 00:09 Expected date of discharge: 08/20/24 Attending physician: Reina Charles MD Consults: 08/11/24 00:33 Consult Physician Routine Consulting Provider: Chriss Witt Consult Reason/Comments: For H & P for Medical Follow Up Do you want consulting provider notified?: Yes, Notify in am Primary care physician: Artie Zhang - Discharge Diagnosis(es) (1) Major depressive disorder, recurrent severe without psychotic features Status: Acute Priority: High (2) Suicide attempt Status: Acute Priority: High (3) Cluster B personality disorder Status: Acute Priority: High (4) Anxiety disorder, unspecified Status: Acute Priority: Medium (5) Nicotine dependence Status: Acute Priority: Low (6) Opioid use disorder in remission Status: Chronic Priority: Low Hospital Course: Admission HPI: Admission note was completed by scientific technical writer "Patient presented to the hospital with SI, suicide attempt. Per EPS, "pt sitting in ER conference room. Wellness Nurse deputies at bedside; deputies departed during assessment. pt states, "I was starting to cut my wrists again." pt reports that he had also attmepted to overdose on "every single one of my meds" about 2 days ago. pt states that this caused him to sleep for 15 hours before waking up. pt states, "I woke up and I was pissed." pt continues to report SI. pt denies HI. pt reports history of hallucinations, but states, "It's been awhile." pt reports poor sleep due to homelessness and sleeping in his truck. pt also reports decreased appetite. pt denies that this is because of inability to get food and states that he has no appetite. No delusional thoughts verbalized. pt cooperative with assessment." Patient seen and evaluated on the unit and was agreeable with speaking to scientific technical writer in office. He states he immediately stopped his medications upon discharge and did not follow-up with [facility] as he did not feel like they could help him. He states relapsing on fentanyl on the outpatient side and took a bunch of these pills in an attempt to commit suicide however this was not fulfilled as he woke up shortly after. Patient mentions receiving his paycheck from his job however there are currently no jobs available and thus he has still been living in his car. He mentions recently taking all of his psychotropic medications and attempt to kill himself however all he did was sleep. He states yesterday hacking [place] [address] when the police came and brought him here. Patient expresses having no goals for this hospitalization saying that no one here can help him. He was agreeable with going to rehab if accepted given his recent relapse. Patient denies any suicidal or homicidal ideations intent or plan. At this time patient denies any auditory or visual hallucinations. Patient denies any flight of ideas racing thoughts and increased in goal directed behavior. Patient admits to using patient reports relapsing on fentanyl, smoking nicotine daily." Hospital course: Upon admission to the unit patient was directable and agreeable to commence treatment and signed adult voluntary form.. Patient got along well with other patients on the unit and followed unit protocol. Patient was compliant with the medications and denied any side effects throughout hospital course. Patient was started on lithium this is increased to 400 mg twice daily for suicidality/mood stabilization, trazodone increased to 150 mg at bedtime for insomnia, melatonin 10 mg at bedtime for insomnia, Remeron 7.5 mg at bedtime for sleep/mood/appetite. Maybell level returned at 0.8. Patient spoke of his stressors and engaged in therapy both group and individual. Patient was also seen by medical team for history and physical exam. Throughout the course of the hospitalization patient gradually improved with regards to mood, anxiety, sleep and became more future oriented with improved insight and judgment. On the day of discharge patient denied any homicidal ideations intent or plan denied any auditory or visual hallucinations. He does report suicidal ideations however lessening in intensity then previous encounters, baseline. The patient denied any access to guns or weapons. Patient denied any paranoia and did not endorse any delusions. Patient does have a significant history of substance abuse and was counseled on abstaining from all substances including alcohol and marijuana. Patient attempted to go to [facility] however was denied due to them deeming him requiring a higher level of care thus he did reach out to [facility] which was pending prior to discharge. Patient was also counseled on the medications and need for regular compliance and was encouraged to follow- up with their outpatient appointment for mental health and also for primary care. [facility] be [facility] to [facility] and was strongly encouraged to follow-up with [facility]. He was given a limited prescription given his recent suicide attempts. Mental status exam: General Appearance: Patient appears to be stated age is alert, pleasant, and cooperative. Patient is in no acute distress and has improved hygiene and grooming Behavior: Patient is calmly seated without any agitated behavior. Speech: Patient's speech is fluent and nonpressured. Mood/Affect: Patient reports their mood is "nervous", affect is congruent and or reactive Suicidality/Homicidality: Patient denies having any homicidal ideation intent or plan. He does report suicidal thoughts however lessening in intensity, baseline Perceptions: Patient denies any auditory or visual hallucinations. Though content/process: There is no evidence of any delusional thought content and thought process is linear and goal-directed. More future oriented Memory and concentration: AOX3, grossly intact for the purposes of this session. Can spell "WORLD" backwards correctly. Judgment and insight: Chronically poor, however has improved with guarded prognosis Impression: Major depressive disorder, recurrent, severe Suicide attempt via cutting/OD Cluster B traits Anxiety, unspecified Opioid use disorder Nicotine dependence Plan: -Continue with discharge today as patient has improved and stabilized psychiatrically and is not currently an imminent threat to themself and/or others. Patient will remain at chronically elevated risk for harm to self and/or others due to their impulsivity and substance abuse. -Continue medications: Maybell 400 mg twice daily, trazodone 150 mg at bedtime, melatonin 10 mg at bedtime, Remeron 7.5 mg at bedtime -Patient was counseled on the need for medication compliance and appropriate follow-up at mental health and also primary care for medical issues. Patient verbalized understanding and agreed. -Social work to help coordinate patients discharge today. also to ensure safe home environment that guns/weapons are either removed from the home or locked away. Social work also to arrange for patients follow up appointments with [facility] for psychiatric care along with follow up with primary care provider. -Patient counseled on abstaining from recreational drugs and marijuana and alcohol. Was informed/educated on the adverse effects on their physical and mental health. Patient verbally agreed and understood. Patient was pending for [facility] and will potentially follow-up with them. -Patient was instructed to return to the hospital or seek immediate medical care if their psychiatric or medical symptoms do worsen or reoccur. Abnormal Labs 08/10/24 08/11/24 22:15 09:13 Glucose 107 H Total Protein 8.3 H Albumin 5.1 H Triglycerides 225.00 H Cholesterol 223.00 H LDL Cholesterol, Calc 135.0 H VLDL Cholesterol, Calc 45.00 H Urine Protein 1+ H Calcium Oxalate Crystal Moderate H Hyaline Casts 4 H Urine Mucus Many H Vital Signs Temp 98 F 08/20/24 10:29 Pulse 100 08/20/24 10:29 Resp 15 08/20/24 10:29 BP 156/105 08/20/24 10:29 Pulse Ox 96 08/20/24 10:29 FiO2 Allergies Allergy/AdvReac Type Severity Reaction Status Date / Time doxycycline Allergy Rash/Hives, Verified 08/10/24 20:51 swelling levofloxacin [From Levaquin] Allergy Rash/Hives, Verified 08/10/24 20:51 throat swelling Penicillins Allergy Rash/Hives, Verified 08/10/24 20:51 throat swelling Patient Condition at Discharge: Stable Plan - Discharge Summary Discharge Rx Participant: Yes New Discharge Prescriptions: New Nicotine 14Mg/24Hr Patch [Habitrol] 1 patch TRANSDERM DAILY patch Maybell Carbonate 450 mg PO BID 7 Days #42 cap Melatonin 10 mg PO HS 30 Days #30 tab amLODIPine [Norvasc] 10 mg PO DAILY 14 Days #14 tab traZODone HCL [Desyrel] 150 mg PO HS 14 Days #21 tab Metoprolol Tartrate [Lopressor] 25 mg PO BID 14 Days #28 tab Mirtazapine [Remeron] 7.5 mg PO HS 14 Days #7 tab Continue Buprenorphine HCl/Naloxone HCl [Suboxone 8 mg-2 mg Sl Film] 1 film SL BID 4 Days #8 film Nicotine Gum (Polacrilex) [Nicorette] 2 mg BUCCAL Q4HR PRN pieceofgum PRN Reason: Nicotine Cravings Discontinued lisinopriL 30 mg PO DAILY Nicotine 14Mg/24Hr Patch [Habitrol] 1 patch TRANSDERM DAILY patch Mirtazapine [Remeron] 7.5 mg PO HS 30 Days #15 tab Gabapentin [Neurontin] 300 mg PO TID traZODone HCL [Desyrel] 100 mg PO HS 30 Days #30 tab Gabapentin [Neurontin] 300 mg PO TID 30 Days #0 cap Sertraline [Zoloft] 100 mg PO DAILY 30 Days #30 tab Discharge Medication List Nicotine Gum (Polacrilex) [Nicorette] 2 mg BUCCAL Q4HR PRN pieceofgum 07/16/24 [Rx] Buprenorphine HCl/Naloxone HCl [Suboxone 8 mg-2 mg Sl Film] 1 film SL BID 4 Days #8 film 08/20/24 [Rx] Maybell Carbonate 450 mg PO BID 7 Days #42 cap 08/20/24 [Rx] Melatonin 10 mg PO HS 30 Days #30 tab 08/20/24 [Rx] Metoprolol Tartrate [Lopressor] 25 mg PO BID 14 Days #28 tab 08/20/24 [Rx] Mirtazapine [Remeron] 7.5 mg PO HS 14 Days #7 tab 08/20/24 [Rx] Nicotine 14Mg/24Hr Patch [Habitrol] 1 patch TRANSDERM DAILY patch 08/20/24 [Rx] amLODIPine [Norvasc] 10 mg PO DAILY 14 Days #14 tab 08/20/24 [Rx] traZODone HCL [Desyrel] 150 mg PO HS 14 Days #21 tab 08/20/24 [Rx] Follow up Appointment(s)/Referral(s): [facility] [Outside] - 08/25/24 12:30 pm (08/25 @ 12:30 with Randy Peña 09/03 @ 09:00 W/ Dr Desir) Artie Zhang DO [Primary Care Provider] - 08/21/24 11:30 am Patient Instructions/Handouts: Depression (DC), Abuse of Alcohol (DC) Activity/Diet/Wound Care/Special Instructions: [facility] Discharge Info Avoid the use of street drugs and alcohol. Take all medications as prescribed. When you are in need of refills on your medications, please contact your outpatient medical provider and/or outpatient psychiatrist. Please go to your scheduled outpatient appointments for aftercare treatment. If symptoms return or become worse, call the crisis line at or and/or visit the nearest emergency room for assistance. National Suicide and Crisis Lifeline - call or text 650 Discharge/Stand Alone Forms: NA Meetings in [place], AA Meetings [facility], [facility], [facility] Substance Abuse Facilities Discharge Disposition: HOME SELF-CARE
== END 2024-08-20 11:58 | disposition home or self-care (01) | DRG 751 ==
LOC: EC 20:26 → 3MHU 08-11 00:09
PROVIDERS: ADMIT Psychiatry & Neurology Psychiatry; ATTEND Psychiatry & Neurology Psychiatry
DX: F33.2 Major depressive disorder, recurrent severe without psychotic features (principal); I16.0 Hypertensive urgency; Z59.02 Unsheltered homelessness; F11.11 Opioid abuse, in remission; G25.81 Restless legs syndrome; I10 Essential (primary) hypertension; T50.916A Underdosing of multiple unspecified drugs, medicaments and biological substances, initial encounter; F17.290 Nicotine dependence, other tobacco product, uncomplicated; T43.222A Poisoning by selective serotonin reuptake inhibitors, intentional self-harm, initial encounter; T43.212A Poisoning by selective serotonin and norepinephrine reuptake inhibitors, intentional self-harm, initial encounter; T43.022A Poisoning by tetracyclic antidepressants, intentional self-harm, initial encounter; S61.512A Laceration without foreign body of left wrist, initial encounter; F41.9 Anxiety disorder, unspecified; F60.89 Other specific personality disorders; G62.9 Polyneuropathy, unspecified; R00.0 Tachycardia, unspecified; X78.9XXA Intentional self-harm by unspecified sharp object, initial encounter; Z87.828 Personal history of other (healed) physical injury and trauma; Z56.0 Unemployment, unspecified; Z91.128 Patient's intentional underdosing of medication regimen for other reason; Z91.198 Patient's noncompliance with other medical treatment and regimen for other reason; Z91.51 Personal history of suicidal behavior; Z79.899 Other long term (current) drug therapy
CPT/HCPCS: 80053; 80061; 80178; 80306; 81001; 82075; 82248; 83036; 84443; 85025; 87635; 99285

== ENCOUNTER 2024-12-03 19:24 | Emergency (ER) | payer OTHER ==
[2024-12-03 19:35] VITALS: RESP 18
--- NOTE | 2024-12-03 20:54 | ED ---
Psych HPI - General Source: patient, EMS Mode of arrival: EMS <Debbie Peterson - Last Filed: 12/03/24 20:53> <Gregorio Hastings - Last Filed: 12/03/24 21:29> - General Chief Complaint: Psychiatric Symptoms Stated Complaint: Mental health Time Seen by Provider: 12/03/24 19:30 - History of Present Illness Initial Comments: 54-year-old male with past medical history of hypertension, restless leg who presents to the emergency department with suicidal ideations. Patient was on [place] and called 911. He told police that he was going to kill himself. Police did petition the patient. Upon arrival here the patient reports he is "unsure if he said this". He denies feeling suicidal or homicidal at this time. Does admit to drinking today. No other alleviating, precipitating roughing factors (Debbie Peterson) - Related Data Home Medications Medication Instructions Recorded Confirmed Albuterol Sulfate [Ventolin HFA] 2 puff INHALATION RT-Q4H PRN 12/03/24 12/03/24 Gabapentin 800 mg PO BID 12/03/24 12/03/24 Lisinopril-Hctz 20-25 mg 1 tab PO DAILY 12/03/24 12/03/24 [Zestoretic 20-25] Metoprolol Succinate (ER) [Toprol 50 mg PO DAILY 12/03/24 12/03/24 Xl] Previous Rx's Medication Instructions Recorded Buprenorphine HCl/Naloxone HCl 1 film SL BID 4 Days #8 film 08/20/24 [Suboxone 8 mg-2 mg Sl Film] Allergies Allergy/AdvReac Type Severity Reaction Status Date / Time doxycycline Allergy Rash/Hives, Verified 12/03/24 21:09 swelling levofloxacin [From Levaquin] Allergy Rash/Hives, Verified 12/03/24 21:09 throat swelling Penicillins Allergy Rash/Hives, Verified 12/03/24 21:09 throat swelling Review of Systems ROS Other: All systems not noted in ROS Statement are negative. <Debbie Peterson - Last Filed: 12/03/24 20:53> ROS Other: All systems not noted in ROS Statement are negative. <Gregorio Hastings - Last Filed: 12/03/24 21:29> ROS Statement: Those systems with pertinent positive or pertinent negative responses have been documented in the HPI. Past Medical History Past Medical History: Hypertension, Neurologic Disorder, Osteoarthritis (OA) Additional Past Medical History / Comment(s): Restless Leg Syndrome. Hx ulcer , migraines, hx hypertension, thought he had seizure last summer- was not seen, bursitis rt elbow,. 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 History of Any Multi-Drug Resistant Organisms: None Reported Past Surgical History: Cholecystectomy, Hernia Repair, Orthopedic Surgery Additional Past Surgical History / Comment(s): ORIF rt wrist/hardware later removed, arthroscopy ky knees, Skin CA removal right top of head. Past Anesthesia/Blood Transfusion Reactions: Previous Problems w/ Anesthesia, Motion Sickness Additional Past Anesthesia/Blood Transfusion Reaction / Comment(s): "Freaked out when woke up after gallbladder surgery, was trying to get out of bed." Past Psychological History: Anxiety, Depression Smoking Status: Current every day smoker, Vaper Past Alcohol Use History: Daily, Heavy Past Drug Use History: None Reported - Past Family History Mother Family Medical History: No Reported History <Debbie Peterson Sánchez - Last Filed: 12/03/24 20:53> General Exam General appearance: alert, in no apparent distress Head exam: Present: atraumatic, normocephalic, normal inspection Eye exam: Present: normal appearance, PERRL, EOMI. Absent: scleral icterus, conjunctival injection, periorbital swelling ENT exam: Present: normal exam, mucous membranes moist Neck exam: Present: normal inspection. Absent: tenderness, meningismus, l ymphadenopathy Respiratory exam: Present: normal lung sounds bilaterally. Absent: respiratory distress, wheezes, rales, rhonchi, stridor Cardiovascular Exam: Present: regular rate, normal rhythm, normal heart sounds. Absent: systolic murmur, diastolic murmur, rubs, gallop, clicks GI/Abdominal exam: Present: soft, normal bowel sounds. Absent: distended, tenderness, guarding, rebound, rigid Extremities exam: Present: normal inspection, full ROM, normal capillary refill. Absent: tenderness, pedal edema, joint swelling, calf tenderness Back exam: Present: normal inspection Neurological exam: Present: alert, oriented X3, CN II-XII intact Psychiatric exam: Present: normal affect, normal mood Skin exam: Present: warm, dry, intact, normal color. Absent: rash <Debbie Peterson - Last Filed: 12/03/24 20:53> Course Vital Signs 12/03/24 19:26 Temperature 99.5 F Pulse Rate 97 Respiratory 18 Rate Blood Pressure 156/101 O2 Sat by Pulse 95 Oximetry Medical Decision Making <Debbie Peterson - Last Filed: 12/03/24 20:53> <VenkataGregorio - Last Filed: 12/03/24 21:29> - Medical Decision Making Was pt. sent in by a medical professional or institution (LENNY Aldana, AGRICULTURAL ENGINEERING TECHNICIAN, urgent care, hospital, or snf...) When possible be specific @ -[No] Did you speak to anyone other than the patient for history (EMS, parent, family, police, friend...)? What history was obtained from this source @ -[No] Did you review nursing and triage notes (agree or disagree)? Why? @ -[I reviewed and agree with nursing and triage notes] Were old charts reviewed (outside hosp., previous admission, EMS record, old EKG, old radiological studies, urgent care reports/EKG's, snf records)? Report findings @ -[No old charts were reviewed] Differential Diagnosis (chest pain, altered mental status, abdominal pain women, abdominal pain men, vaginal bleeding, weakness, fever, dyspnea, syncope, headache, dizziness, GI bleed, back pain, seizure, CVA, palpatations, mental health, musculoskeletal)? @ -[not applicable] EKG interpreted by me (3pts min.). @ -[As above] X-rays interpreted by me (1pt min.). @ -[None done] CT interpreted by me (1pt min.). @ -[None done] U/S interpreted by me (1pt. min.). @ -[None done] What testing was considered but not performed or refused? (CT, X-rays, U/S, labs)? Why? @ -[None] What meds were considered but not given or refused? Why? @ -[None] Did you discuss the management of the patient with other professionals (professionals i.e. LENNY Aldana, AGRICULTURAL ENGINEERING TECHNICIAN, lab, RT, psych nurse, social work case manager, special librarian, teacher, senior administrative services officer, keycase assembler)? Give summary @ -[No] Was smoking cessation discussed for >3mins.? @ -[No] Was critical care preformed (if so, how long)? @ -[No] Were there social determinants of health that impacted care today? How? (Homelessness, low income, unemployed, alcoholism, drug addiction, transportation, low edu. Level, literacy, decrease access to med. care, residential, rehab)? @ -[No] Was there de-escalation of care discussed even if they declined (Discuss DNR or withdrawal of care, Hospice)? DNR status @ -[No] What co-morbidities impacted this encounter? (DM, HTN, Smoking, COPD, CAD, Cancer, CVA, ARF, Chemo, Hep., AIDS, mental health diagnosis, sleep apnea, morbid obesity)? @ -[None] Was patient admitted / discharged? Hospital course, mention meds given and route, prescriptions, significant lab abnormalities, going to OR and other pertinent info. @ -[hospital course] Undiagnosed new problem with uncertain prognosis? @ -[No] Drug Therapy requiring intensive monitoring for toxicity (Heparin, Nitro, Insulin, Cardizem)? @ -[No] Were any procedures done? @ -[No] Diagnosis/symptom? @ -[default] Acute, or Chronic, or Acute on Chronic? @ -[default] Uncomplicated (without systemic symptoms) or Complicated (systemic symptoms)? @ -[default] Side effects of treatment? @ -[No] Exacerbation, Progression, or Severe Exacerbation? @ -[No] Poses a threat to life or bodily function? How? (Chest pain, [place], [place], pneumonia, PE, COPD, DKA, ARF, appy, cholecystitis, CVA, Diverticulitis, Homicidal, Suicidal, threat to staff... and all critical care pts) @ -[No] (Debbie Peterson) Patient signed out to me pending results of EPS evaluation. EPS Jessica evaluated patient and after discussion with psychiatry patient does not meet criteria for inpatient psychiatric admission. Patient will be discharged home with a safety plan. Diagnosis/symptom? @ -Encounter for psychiatric evaluation, alcohol intoxication Acute, or Chronic, or Acute on Chronic? @ -Acute Uncomplicated (without systemic symptoms) or Complicated (systemic symptoms)? @ -Uncomplicated Side effects of treatment? @ -None Exacerbation, Progression, or Severe Exacerbation] @ -No Poses a threat to life or bodily function? @ -Unlikely at this time (Gregorio Hastings) Disposition <Debbie Peterson - Last Filed: 12/03/24 20:53> Is patient prescribed a controlled substance at d/c from ED?: No Time of Disposition: 21:29 <Gregorio Hastings - Last Filed: 12/03/24 21:29> Clinical Impression: Alcohol intoxication, Encounter for psychiatric assessment Disposition: HOME SELF-CARE Condition: Good Additional Instructions: follow safety plan Referrals: Artie Zhang, [Primary Care Provider] - 1-2 days
[2024-12-03 21:37] VITALS: BP 142/88; PULSE 82; TEMP 99.4
== END 2024-12-03 21:42 | disposition home or self-care (01) ==
LOC: EC 19:24
DX: F10.129 Alcohol abuse with intoxication, unspecified (principal); F17.290 Nicotine dependence, other tobacco product, uncomplicated; Z04.6 Encounter for general psychiatric examination, requested by authority; Z88.0 Allergy status to penicillin; Z88.1 Allergy status to other antibiotic agents
CPT/HCPCS: 82075; 99285